=== PATIENT | female | born 1985 | race African-American/Black ===

== ENCOUNTER 2020-11-14 15:30 | Outpatient (REF) | payer MEDICAID, SELFPAY | END 2020-11-14 15:31 | disposition home or self-care (01) | LOC: HO.LNP 15:30 | PROVIDERS: PCP Registered Nurse; Referring Provider Registered Nurse; Visit Provider Surgery | DX: N90.7 Vulvar cyst (principal) | CPT/HCPCS: 11402; 11422; 88304; 99202 ==

== ENCOUNTER 2020-11-18 10:38 | Outpatient (REF) | payer MEDICAID, SELFPAY | END 2020-11-18 10:39 | disposition home or self-care (01) | LOC: HO.LAB 10:38 | PROVIDERS: Visit Provider Surgery | DX: Z13.89 Encounter for screening for other disorder (principal) ==

== ENCOUNTER 2020-11-19 23:03 | Emergency (ER) | payer MEDICAID, SELFPAY ==
[2020-11-19 23:48] VITALS: BP 111/61; PULSE 57; RESP 18; TEMP 35.9; O2SAT 99; BMI 29.7
[2020-11-20 02:00] VITALS: BP 107/52; PULSE 53; RESP 16; TEMP 36.7; O2SAT 100
--- NOTE | 2020-11-20 02:02 | ED.SKABFB ---
HPI - Skin/Abscess/Foreign Bdy General Chief complaint: Skin/Abscess/Foreign Body Stated complaint: Wound check Time Seen by Provider: 11/20/20 01:19 Source: patient Mode of arrival: ambulatory History of Present Illness HPI narrative: 35-year-old female presents with reported drainage from post incision and drainage and is postop day 6. Patient denies any fevers chills but states that she has noted reaccumulation and increase in size as previous ?cyst?. Related Data Home Medications Medication Instructions Recorded Confirmed buprenorphine 12 mg-naloxone 3 mg 1 film BUCCAL Q24H 11/14/20 11/14/20 sublingual film Allergies Allergy/AdvReac Type Severity Reaction Status Date / Time No Known Allergies Allergy Verified 11/14/20 15:38 Review of Systems Review of Systems: Pertinent positives and negatives as stated in HPI 10 point review of systems otherwise negative. PMFSH Past Medical History Source: nursing notes reviewed Medical History No active medical problems Vulvar cyst Family History Family History Paternal Grandmother No problems noted. Social History Social History Alcohol intake: never Patient Tobacco Use Status: Never used Tobacco Use of substances other than those prescribed or required for medical reasons: No Advance Directives: No Advance Directives Information Provided: No Patient : No Physical Exam Vital Signs: Vital Signs: Last Vital Signs Temp 98.1 F 11/20/20 02:00 Pulse 53 11/20/20 02:00 Resp 16 11/20/20 02:00 BP 107/52 L 11/20/20 02:00 Pulse Ox 100 11/20/20 02:00 Body Mass Index 29.7 VITAL SIGNS: Reviewed. GENERAL: Well developed, well nourished, in no acute distress. HEAD: Normocephalic/atraumatic EYES: PERRLA, EOMI OROPHARYNX: no oral lesions noted, posterior pharynx clear NECK: Supple, no adenopathy LUNGS: Normal breath sounds. No adventitious sounds or accessory muscle use. SpO2<99> CARDIOVASCULAR: Regular rate and rhythm without noted murmurs ABDOMEN: Soft, non-tender, non-distended with bowel sounds. : Suture line along the labial/thigh crease with serosanguineous drainage and palpation of firm lump without fluctuance Course Course Course Narrative: 35-year-old female with history and clinical presentation consistent with postprocedure infection versus seroma. Sutures were successfully removed without complication there is minimal evidence for abscess formation despite induration. All sutures were removed with minimal expression of fluid, suspect that there is no collection at present, encouraged patient to utilize warm moist compresses and follow up at the surgery clinic in the morning. MDM - Skin/Abscess/Foreign Bdy Lab Data Labs: Lab Results 11/20/20 11/20/20 Range/Units 02:07 02:07 Urine Color STRAW Urine Appearance CLEAR Urine pH 6.0 (5.0-8.0) Ur Specific Mcguffey <= 1.005 (1.005-1.025) Urine Protein NEG (NEG-TRACE) MG/DL Urine Glucose (UA) NEG (NEG) MG/DL Urine Ketones NEG (NEG) MG/DL Urine Blood NEG (NEG) Urine Nitrite NEG (NEG) Ur Leukocyte Esterase NEG (NEG) Urine RBC 0 (0) /HPF Urine WBC 0 (0-4) /HPF Ur Squamous Epith Cells 1+ /LPF Urine Bacteria NONE /LPF Urine Test NEGATIVE (NEGATIVE) Discharge Plan Discharge Clinical Impression: Cellulitis Patient Disposition: Home, Self-Care Instructions: Cellulitis (ED) Additional Instructions: 1. Please follow up with the surgical clinic in the morning for re-evaluation. 2. You have been started on antibiotics for additional infection control. 3. Recommend taking [id number] Tylenol/ibuprofen as needed for additional pain relief. Use warm moist compresses at the site, 3 to 4 times a day. Return to the ER for acute worsening of symptoms. Prescriptions: No Action buprenorphine-naloxone [Suboxone] 12-3 mg film 1 film buccal Q24H RF: 0 Referrals: [facility] [Primary Care Provider] - 2 days Daniel Rodriguez MD [Physician] - 2 days
[2020-11-20 02:15] LABS: Glucose Urine UA NEG (NEG); Leukocyte Esterase Urine NEG (NEG); Nitrite Urine NEG (NEG); Specific Gravity - Urine <= 1.005 (1.005-1.025); Urine Blood NEG (NEG); Urine Ketones NEG (NEG); Urine Protein NEG (NEG-TRACE)
[2020-11-20] MEDS: Lidocaine HCl 2 % MPF 5 ML VIAL 10 ML INFILTRATI (02:16)
[2020-11-20 02:17] LABS: Appearance Urine CLEAR; Color Urine STRAW; UACC CULT NO; UPreg QC Valid YES; Urine Pregnancy NEGATIVE (NEGATIVE)
[2020-11-20 02:24] LABS: RBC Urine 0 /HPF (0); Squamous Epithelial Cell Urine 1+ /LPF; WBC Urine 0 /HPF (0-4)
[2020-11-20] MEDS: Amoxicillin/Potassium Clav 875 MG TABLET PO (04:05)
== END 2020-11-20 04:39 | disposition home or self-care (01) ==
PROVIDERS: Emergency Provider Student in an Organized Health Care Education/Training Program
DX: T81.49XA Infection following a procedure, other surgical site, initial encounter (principal); L03.119 Cellulitis of unspecified part of limb
CPT/HCPCS: 81001; 81025; 99284

== ENCOUNTER → 2020-11-25 09:10 | Outpatient (BNVA) | payer MEDICAID, SELFPAY | PROVIDERS: PCP Registered Nurse; Referring Provider Registered Nurse; Visit Provider Surgery | DX: Z48.00 Encounter for change or removal of nonsurgical wound dressing (principal) | CPT/HCPCS: 99211 ==

== ENCOUNTER → 2020-12-09 13:43 | Outpatient (BNVA) | payer MEDICAID, SELFPAY | PROVIDERS: PCP Registered Nurse; Referring Provider Registered Nurse; Visit Provider Surgery | DX: Z48.816 Encounter for surgical aftercare following surgery on the genitourinary system (principal); Z87.42 Personal history of other diseases of the female genital tract | CPT/HCPCS: 99212 ==

== ENCOUNTER 2023-08-09 13:39 | Outpatient (REF) | payer MEDICAID, SELFPAY ==
[2023-08-10 05:05] LABS: Syphilis Screen Nonreactive (Nonreactive)
[2023-08-10 05:28] LABS: HIV AB/AG Nonreactive (Nonreactive); HIV Num 1 0.06 S/CO (0.00-0.99)
[2023-08-11 18:18] LABS: C. trachomatis RNA TMA NOT DETECTED (NOT DETECTED); Candida glabrata RNA NOT DETECTED (NOT DETECTED); Candida species RNA NOT DETECTED (NOT DETECTED); N. gonorrhoeae RNA TMA NOT DETECTED (NOT DETECTED); Trichomonas vaginalis RNA NOT DETECTED (NOT DETECTED)
[2023-08-13 06:33] LABS: HPV mRNA E6/E7 rflx Not Detected (Not Detected)
== END 2023-08-09 13:40 | disposition home or self-care (01) ==
LOC: HO.HHCL 13:39
PROVIDERS: Visit Provider Advanced Practice Midwife
DX: Z12.4 Encounter for screening for malignant neoplasm of cervix (principal); N89.8 Other specified noninflammatory disorders of vagina; Z11.3 Encounter for screening for infections with a predominantly sexual mode of transmission
CPT/HCPCS: 36415; 81513; 86780; 87389; 87481; 87491; 87591; 87624; 87661; 88142

== ENCOUNTER 2024-07-19 10:30 | Outpatient (REF) | payer MEDICAID, SELFPAY ==
--- OUTSIDE RECORDS SUMMARY | 2024-07-19 11:09 | XMS_ITS | Encounter Summary ---
Author Organization [employer] Address [address] [facility] [address] [place] [address] Care Team Providers Care Fireproof Door Assembler Name Role Phone Maggy Carrera Primary Care Provider [phone] Reason for Visit * Reason Onset Date Comments Referral 07/28/2022 Encounter Details Date Type Department Care Team ([facility] st Contact Info) Description 07/28/2022 Telephone [facility] [address] [place] [address] Maggy Carrera FNP [address] [place] [address] Referral Social History Tobacco Use Types Packs/Day Years Used Date Smoking Tobacco: Never Smokeless Tobacco: Never Depression Answer Date Recorded Patient Health Questionnaire-9 Score 17 10/22/2022 Housing Stability Answer Date Recorded What is your housing situation today? I have dejah roy 04/16/[address] you li ve. Do you have problems with any of the following? None of the above 04/16/2023 Food Insecurity Answer Date Recorded Within the past 12 months, y ou worried that your food would run out before you got money to buy more: Never True 04/16/2023 Within the past 12 months,th e food you bought just didn't last and you didn't have enough money to get more: Never True Transportation Answer Date Recorded In the past 12 months, has l ack of transportation kept you from medical appts, meetings, work or from getting things needed for daily living? No 04/16/2023 Utilities Answer Date Recorded In the past 12 months, has t he [employer], gas, oil or water [employer] threatened to shut off services in your home? No 04/16/2023 Depression Answer Date Recorded Patient Health Questionnaire-2 Score 3 10/22/2022 Comments Unknown Sex and Gender Information Value Date Recorded Sex Assigned at Female 03/30/2022 10:31 AM EDT Legal Sex Female 10:31 AM EDT Gender Identity Female 03/30/2022 10:31 AM EDT Sexual Orientation Choose not to disclose 2021 10:31 AM EDT COVID-19 Exposure Response Date Recorded In the last 10 days, have yo u been in contact with someone who was confirmed or suspected to have Coronavirus/COVID-19? No / Unsure 11/20/2022 9:16 AM EDT documented as of this encounter Miscellaneous Notes * Telephone Encounter - Jacqueline Oquendo RN - 07/28/2022 1:44 PM EST Pt was referred to podiatry and advised to go to ED if I&D may be warranted. Pt agrees with plan. * Telephone Encounter - Monica Silva - 07/28/2022 1:17 PM EST Tc from pt requesting a referral for a podiatry , stated called several places and wait time is longer than a month and can no longer wait, pt was seen at [facility] for a abscess on right big toes. Please contact at [phone] documented in this encounter Plan of Treatment Upcoming Encounters Date Type Department Care Team (Late st Contact Info) Description 07/28/2024 9:15 AM EST Office Visit [facility] [address] [place] [address] Yahir Butler MD [address] [place] [address] 08/10/2024 2:00 PM EDT [facility] [address] [place] [address] Oksana Quiñones CNM [address] [place] [address] 08/16/2024 10:00 AM EDT Office Visit [facility] [address] [place] [address] Maggy Carrera FNP [address] [place] [phone] documented as of this encounter Visit Diagnoses Not on filedocumented in this encounter Care Teams Fireproof Door Assembler Relationship Specialty Start Date End Date Maggy Carrera FNP [address] [place] [address] PCP - General Family Medicine 03/24/21 documented as of this encounter
--- OUTSIDE RECORDS SUMMARY | 2024-07-19 11:09 | XMS_ITS | Encounter Summary ---
Author Organization [employer] Address [address] [facility] [address] 7[address] [place] [address] Care Team Providers Care Icu Rn Name Role Phone Maggy Carrera Primary Care Provider [phone] Encounter Details Date Type Department Care Team (Late st Contact Info) Description 07/18/2024 Telephone [facility] [address] [place] [address] Maggy Carrera FNP [address] [place] [address] Social History Tobacco Use Types Packs/Day Years Used Date Smoking Tobacco: Never Smokeless Tobacco: Never Alcohol Use Standard Drinks/Week Comments Never 0 (1 standard drink = 0.6 oz pur e alcohol) Depression Answer Date Recorded Patient Health Questionnaire-9 Score 17 10/22/2022 Housing Stability Answer Date Recorded What is your housing situation today? I have dejah roy 07/19/[address] you li ve. Do you have problems with any of the following? None of the above 07/19/2024 Food Insecurity Answer Date Recorded Within the past 12 months, y ou worried that your food would run out before you got money to buy more: Never True 07/19/2024 Within the past 12 months,th e food you bought just didn't last and you didn't have enough money to get more: Never True Transportation Answer Date Recorded In the past 12 months, has l ack of transportation kept you from medical appts, meetings, work or from getting things needed for daily living? No 07/19/2024 Utilities Answer Date Recorded In the past 12 months, has t he electric, gas, oil or water company threatened to shut off services in your home? No 07/19/2024 Depression Answer Date Recorded Patient Health Questionnaire-2 Score 3 10/22/2022 Internet Access Answer Date Recorded Internet Access Q1 Yes 07/19/2024 Internet Access Q2 Not on file 07/19/2024 Comments No Sex and Gender Information Value Date Recorded Sex Assigned at Female 03/30/2022 10:31 AM EDT Legal Sex Female 10:31 AM EDT Gender Identity Female 03/30/2022 10:31 AM EDT Sexual Orientation Choose not to disclose 2021 10:31 AM EDT documented as of this encounter Miscellaneous Notes * Telephone Encounter - Gwen May - 07/18/2024 8:40 AM EST Called Patient left vm, advised insurance is inactive Patient needs to update insurance before appointment. documented in this encounter Plan of Treatment Upcoming Encounters Date Type Department Care Team (Late st Contact Info) Description 07/28/2024 9:15 AM EST Office Visit [facility] [address] [place] [address] Yahir Butler MD [address] [place] [address] 08/10/2024 2:00 PM EDT Office Visit [facility] [address] [place] [address] Oksana Quiñones CNM [address] [place] [address] 08/16/2024 10:00 AM EDT Office Visit [facility] [address] [place] [address] Maggy Carrera FNP [address] [place] [address] documented as of this encounter Visit Diagnoses Not on filedocumented in this encounter Additional Health Concerns Assessment Noted Time PHQ-9 Depression Total Score: 17 023 3:28 PM EDT documented as of this encounter Care Teams Icu Rn Relationship Specialty Start Date End Date Maggy Carrera FNP [address] [place] [address] PCP - General Family Medicine 03/24/21 documented as of this encounter
--- OUTSIDE RECORDS SUMMARY | 2024-07-19 11:09 | XMS_ITS | Encounter Summary ---
Author Organization [employer] Address [address] [facility] 7t [place] [address] Care Team Providers Care Chocolate Molder Name Role Phone Maggy Carrera Primary Care Provider [phone] Reason for Visit * Reason Comments Pre-visit Planning Pre-visit planning - LVM Encounter Details Date Type Department Care Team ([facility] st Contact Info) Description 07/03/2024 Patient Outreach [facility] [address] [place] [address] Maggy Carrera FNP [address] [place] [address] Pre-visit Planning (Pre-visit planning - LVM ) Social History Tobacco Use Types Packs/Day Years [...] Patient Health Questionnaire-2 Score 3 10/22/2022 Comments No Sex and Gender Information Value Date Recorded Sex Assigned at Female 03/30/2022 10:31 AM EDT Legal Sex Female 10:31 AM EDT Gender Identity Female 03/30/2022 10:31 AM EDT Sexual Orientation Choose not to disclose 2021 10:31 AM EDT documented as of this encounter Progress Notes * Alyssa Marcelino - 07/03/2024 1:59 PM EST LEONID Pearson placed outbound call to patient to complete pre-visit planning. No answer at this time. Patient name and were not confirmed. CC left voicemail requesting return call. Direct contact information provided. documented in this encounter Plan of Treatment Upcoming Encounters Date Type Department Care Team (Late st Contact Info) Description 07/28/2024 9:15 AM EST Office Visit [facility] [address] [place] [address] Yahir Butler MD [address] [place] [address] 08/10/2024 2:00 PM EDT Office Visit [facility] [address] [place] [address] Oksana Quiñones CNM [address] [place] [address] 08/16/2024 10:00 AM EDT Office Visit [facility] [address] [place] [address] Maggy Carrera FNP [address] [place] [address] documented as of this encounter Visit Diagnoses Not on filedocumented in this encounter Additional Health Concerns Assessment Noted Time PHQ-9 Depression Total Score: 17 023 3:28 PM EDT documented as of this encounter Care Teams Chocolate Molder Relationship Specialty Start Date End Date Maggy Carrera FNP [address] [place] [address] PCP - General Family Medicine 03/24/21 documented as of this encounter
--- OUTSIDE RECORDS SUMMARY | 2024-07-19 11:09 | XMS_ITS | Encounter Summary ---
Author Organization [employer] Address [address] [facility] [address] [place] [address] Care Team Providers Care Loan Auditor Name Role Phone Maggy Carrera Primary Care Provider [phone] Reason for Referral * Imaging (Routine) - Pending Review Specialty Diagnoses / Procedures Referred By Jonny sandoval Referred To Contact Radiology Diagnoses Encounter for screening mammogram for malignant neoplasm of breast Procedures BI Mammogram Screening Tomosynthesis Bilateral Maggy Carrera FNP [address] [place] [address] Phone: tel: fax: Referral ID Status Reason Start Date Expiration Date V isits Requested Visits Authorized [id number] Pending Review 07/19/2024 07/19/2025 1 1 * Consultation (Routine) - Pending Review Specialty Diagnoses / Procedures Referred By Jonny sandoval Referred To Contact Podiatry Diagnoses Ingrown nail of great toe Maggy Carrera FNP [address] [place] [address] Phone: tel: fax: Min Simon DPM [address] [place] [address] Phone: tel: fax: Referral ID Status Reason Start Date Expiration Date Visits Requested Visits Authorized [id number] Pending Review Specialty Services Required 07/19/2024 07/19/2025 1 1 * Consultation (Routine) - Authorized Specialty Diagnoses / Procedures Referred By Jonny sandoval Referred To Contact Optometry Diagnoses Encounter for routine history and physical examination of adult Maggy Carrera FNP [address] [place] [address] Phone: tel: fax: [facility] [address] [place] [address] Phone: tel: fax: Referral ID Status Reason Start Date Expiration Date Visits Requested Visits Authorized [id number] Authorized Consult and Treat 07/19/2024 07/19/2025 1 1 Encounter Details Date Type Department Care Team ([facility] st Contact Info) Description 07/19/2024 9:15 AM EST Office Visit [facility] [address] [place] [address] Maggy Carrera FNP [address] [place] [address] Encounter for routine history and physical examination of adult (Primary Dx); Healthcare maintenance; Abnormal finding on imaging of liver; Opioid use disorder; Ingrown nail of great toe; Encounter for screening mammogram for malignant neoplasm of breast Social History Tobacco Use Types Packs/Day Years Used Date Smoking Tobacco: Never Smokeless Tobacco: Never Alcohol Use Standard Drinks/Week Comments Never 0 (1 standard drink = 0.6 oz pur e alcohol) Depression Answer Date Recorded Patient Health Questionnaire-9 Score 17 10/22/2022 Housing Stability Answer Date Recorded What is your housing situation today? I have dejah kirill 07/19/[address] you li [...] AM EDT documented as of this encounter Last Filed Vital Signs Vital Sign Reading Time Taken Comments Blood Pressure 128/66 07/19/2024 9:36 AM EST Pulse 60 07/19/2024 9:36 AM EST Temperature 36 ??C (96.8 ??F) 07/19/2024 9:36 AM EST Respiratory Rate 18 07/19/2024 9:36 AM EST Oxygen Saturation 98% 07/19/2024 9:36 AM EST Inhaled Oxygen Concentration - - Weight 86.6 kg (191 lb) 07/19/2024 9:36 AM EST Height 157.5 cm (5' 2 ) 07/19/2024 9:36 AM EST Body Mass Index 34.93 07/19/2024 9:36 AM EST documented in this encounter Miscellaneous Notes * Assessment & Plan Note - PATRICIA Leon - 07/19/2024 7:57 AM ESTAssociated Problem(s): Healthcare maintenance Breast CA: Routine mammograms starting at 40 y/o Pap: July 2023 NILM/HPV neg. Repeat in 3 years d/t no previous results. 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 documented in this encounter Plan of Treatment Upcoming Encounters Date Type Department Care Team (Late st Contact Info) Description 07/28/2024 9:15 AM EST Office Visit [facility] [address] [place] [address] Yahir Butler MD [address] [place] [address] 08/10/2024 2:00 PM EDT Office Visit [facility] [address] [place] [address] Oksana Quiñones, CNM [address] [place] [address] 08/16/2024 10:00 AM EDT Office Visit [facility] [address] [place] [address] Maggy Carrera, ETCHER ENAMELING [address] [place], [place] [phone] Scheduled Orders Name Type Priority Associated Diagnoses Orde r Schedule Chlamydia/N. Gonorrhoeae RNA, TMA, Urogenitial Microbiology Routine Encounter for routine history and physical examination of adult Expected: 07/19/2024, Expires: 07/19/2025 Hepatitis C Viral RNA, Quantitative, Real-Time PCR Lab Routine Encounter for routine history and physical examination of adult Expected: 07/19/2024 (Approximate), Expires: 07/19/2025 RPR (Monitor) with Reflex to??Titer Lab Routine Encounter for routine history and physical examination of adult Expected: 07/19/2024 (Approximate), Expires: 07/19/2025 HIV-1/2 Antigen and Antibodies, Fourth Generation, with Reflexes Lab Routine Encounter for routine history and physical examination of adult Expected: 07/19/2024 (Approximate), Expires: 07/19/2025 Albumin, Random Urine W/Creatinine Lab Routine Encounter for routine history and physical examination of adult Expected: 07/19/2024 (Approximate), Expires: 07/19/2025 Lipid Panel, Standard Lab Routine Encounter for routine history and physical examination of adult Expected: 07/19/2024 (Approximate), Expires: 07/19/2025 Hemoglobin A1c Lab Routine Encounter for routine history and physical examination of adult Expected: 07/19/2024 (Approximate), Expires: 07/19/2025 TSH with Reflex to Free T4 Lab Routine Encounter for routine history and physical examination of adult Expected: 07/19/2024 (Approximate), Expires: 07/19/2025 Comprehensive Metabolic Panel Lab Routine Encounter for routine history and physical examination of adult Expected: 07/19/2024 (Approximate), Expires: 07/19/2025 CBC auto differential Lab Routine Encounter for routine history and physical examination of adult Expected: 07/19/2024, Expires: 07/19/2025 Iron And Total Iron Binding Capacity Lab Routine Encounter for routine history and physical examination of adult Expected: 07/19/2024, Expires: 07/19/2025 Ferritin Lab Routine Encounter for routine history and physical examination of adult Expected: 07/19/2024, Expires: 07/19/2025 Vitamin D, 25-Hydroxy, Total, Immunoassay Lab Routine Encounter for routine history and physical examination of adult Expected: 07/19/2024 (Approximate), Expires: 07/19/2025 BI Mammogram Screening Tomosynthesis Bilateral Imaging Routine Encounter for screening mammogram for malignant neoplasm of breast Expected: 07/19/2024, Expires: 09/16/2025 Scheduled Referrals Name Type Priority Associated Diagnoses Orde r Schedule Referral to [facility] Outpatient Referral Routine Encounter for routine history and physical examination of adult Expected: 07/19/2024 (Approximate), Expires: 07/19/2025 Referral to Podiatry Outpatient Referral Routine Ingrown nail of great toe Expected: 07/19/2024 (Approximate), Expires: 07/19/2025 documented as of this encounter Visit Diagnoses Diagnosis Encounter for routine history and physical examination of adult- Primary Healthcare maintenance Abnormal finding on imaging of liver Opioid use disorder Ingrown nail of great toe Encounter for screening mammogram for malignant neoplasm of breast documented in this encounter Additional Health Concerns Assessment Noted Time PHQ-9 Depression Total Score: 17 10/22/ 023 3:28 PM EDT documented as of this encounter Care Teams Loan Auditor Relationship Specialty Start Date End Date Maggy Carrera FNP [address] [place] [address] PCP - General Family Medicine 03/24/21 documented as of this encounter
--- OUTSIDE RECORDS SUMMARY | 2024-07-19 11:09 | XMS_ITS | Encounter Summary ---
Author Organization [employer] Address [address] [facility] [address] [place] [address] Care Team Providers Care Senior Application Security Consultant Name Role Phone Maggy Carrera PATRICIA Primary Care Provider [phone] Reason for Visit * Reason Comments Med Refill Encounter Details Date Type Department Care Team ([facility] st Contact Info) Description 03/31/2024 Refill [facility] [address] [place], [place] [phone] Yahir Butler MD [address] [place] [address] Opioid use disorder Social History Tobacco Use Types Packs/Day Years [...] AM EDT documented as of this encounter Plan of Treatment Upcoming Encounters Date Type Department Care Team (Late st Contact Info) Description 07/28/2024 9:15 AM EST Office Visit [facility] [address] [place] [address] Yahir Butler MD [address] [place] [address] 08/10/2024 2:00 PM EDT Office Visit [facility] [address] [place] [address] Oksnaa Quiñones CNM [address] [place] [address] 08/16/2024 10:00 AM EDT Office Visit [facility] [address] [place] [address] Maggy Carrera FNP [address] [place] [address] documented as of this encounter Visit Diagnoses Diagnosis Opioid use disorder documented in this encounter Additional Health Concerns Assessment Noted Time PHQ-9 Depression Total Score: 17 023 3:28 PM EDT documented as of this encounter Care Teams Senior Application Security Consultant Relationship Specialty Start Date End Date Maggy Carrera FNP [address] [place] [address] PCP - General Family Medicine 03/24/21 documented as of this encounter
--- OUTSIDE RECORDS SUMMARY | 2024-07-19 11:09 | XMS_ITS | Encounter Summary ---
Author Organization [employer] Address [address] [place] [address] Care Team Providers Care Peoplesoft Administrator Name Role Phone Maggy Carrera PATRICIA Primary Care Provider [phone] Reason for Visit * Reason Comments Med Refill Encounter Details Date Type Department Care Team ([facility] st Contact Info) Description 02/25/2024 Refill [facility] MEDICINE [address] [place], [place] [phone] Yahir Butler MD [address] [place] [address] Vaping nicotine dependence, non-tobacco product Social History Tobacco Use Types Packs/Day Years [...] Description 07/28/2024 9:15 AM EST Office Visit [facility] MEDICINE [address] [place] [address] Yahir Butler MD [address] [place] [address] 08/10/2024 2:00 PM EDT Office Visit [facility] CHC MED & PEDS [address] [place] [address] Oksana Quiñones CNM [address] [place] [address] 08/16/2024 10:00 AM EDT Office Visit [facility] MEDICINE [address] [place] [phone] Maggy Carrera FNP [address] [place] [address] documented as of this encounter Visit Diagnoses Diagnosis Vaping nicotine dependence, non-tobacco product documented in this encounter Additional Health Concerns Assessment Noted Time PHQ-9 Depression Total Score: 17 023 3:28 PM EDT documented as of this encounter Care Teams Peoplesoft Administrator Relationship Specialty Start Date End Date Maggy Carrera FNP [address] [place] [phone] PCP - General Family Medicine 03/24/21 documented as of this encounter
--- OUTSIDE RECORDS SUMMARY | 2024-07-19 11:09 | XMS_ITS | Encounter Summary ---
Author Organization [employer] Address [address] [place] [address] Care Team Providers Care Resort Keeper Name Role Phone Maggy Carrera PATRICIA Primary Care Provider [phone] Reason for Visit * Reason Comments Med Refill Encounter Details Date Type Department Care Team ([facility] st Contact Info) Description 05/26/2024 Refill [facility] MEDICINE [address] [place], [place] [phone] Yahir Butler MD [address] [place] [address] Opioid use disorder Social History Tobacco Use [...] Description 07/28/2024 9:15 AM EST Office Visit [facility] MEDICINE [address] [place] [address] Yahir Butler MD [address] [place] [address] 08/10/2024 2:00 PM EDT Office Visit [facility] CHC MED & PEDS [address] [place] [address] Oksana Quiñones CNM [address] [place] [address] 08/16/2024 10:00 AM EDT Office Visit [facility] MEDICINE [address] [place] [address] Maggy Carrera FNP [address] [place] [address] documented as of this encounter Visit Diagnoses Diagnosis Opioid use disorder documented in this encounter Additional Health Concerns Assessment Noted Time PHQ-9 Depression Total Score: 17 023 3:28 PM EDT documented as of this encounter Care Teams Resort Keeper Relationship Specialty Start Date End Date Maggy Carrera FNP [address] [place] [address] PCP - General Family Medicine 03/24/21 documented as of this encounter
--- OUTSIDE RECORDS SUMMARY | 2024-07-19 11:09 | XMS_ITS | Encounter Summary ---
Author Organization [employer] Address [address] [place] [address] Care Team Providers Care Epic Ambulatory Analysts Name Role Phone Maggy Carrera Primary Care Provider [phone] Reason for Visit * Reason Onset Date Comments Referral 05/29/2024 Encounter Details Date Type Department Care Team ([facility] st Contact Info) Description 05/29/2024 Telephone [facility] MEDICINE [address] [place] [address] Maggy Carrera FNP [address] [place] [address] Referral Social History Tobacco Use Types Packs/Day [...] encounter Miscellaneous Notes * Telephone Encounter - Betty Ruiz RN - 06/01/2024 11:34 AM EST TC to patient. No answer. Left message to return call. * Telephone Encounter - PATRICIA Leon - 05/29/2024 8:52 PM EST Please let her know that she will need to be seen for an appt in order to get updated referral as it has been more than 1 year since last one was sent. Last PCP visit was 04/16/23, so will need updated note. She is welcome to come to Walk in Center or Same Day Care/sick appt. Thank you! * Telephone Encounter - Sylvester Melendez - 05/29/2024 10:18 AM EST TC from pt requesting new referral: Address: [address] [place] [address] [address], [place] [address] Facility Name: [facility] Type of Specialist: Appraiser Real Estate DX: Ingrown Toenail Provider: Min Simon Pt stated due to insurance change she would need new emergency referral. Emergency because of the ingrown toenail. Please contact pt at at [phone], she would like to further discuss. documented in this encounter Plan of Treatment Upcoming Encounters Date Type Department Care Team (Late st Contact Info) Description 07/28/2024 9:15 AM EST Office Visit [facility] MEDICINE [address] [place] [address] Yahir Butler MD [address] [place] [address] 08/10/2024 2:00 PM EDT Office Visit [facility] CHC MED & PEDS [address] [place] [address] Oksana Quiñones CNM [address] [place] [address] 08/16/2024 10:00 AM EDT Office Visit [facility] MEDICINE [address] [place] [address] Maggy Carrera FNP [address] [place], [place] [phone] documented as of this encounter Visit Diagnoses Not on filedocumented in this encounter Additional Health Concerns Assessment Noted Time PHQ-9 Depression Total Score: 17 023 3:28 PM EDT documented as of this encounter Care Teams Epic Ambulatory Analysts Relationship Specialty Start Date End Date Maggy Carrera FNP [address] [place] [address] PCP - General Family Medicine 03/24/21 documented as of this encounter
--- OUTSIDE RECORDS SUMMARY | 2024-07-19 11:09 | XMS_ITS | Encounter Summary ---
Author Organization [facility] [employer] Address [address] [place] [address] Care Team Providers Care Ms Sql Server Developer Name Role Phone Maggy Carrera PATRICIA Primary Care Provider [phone] Reason for Visit * Reason Onset Date Comments Chart Prep 07/18/2024 Encounter Details Date Type Department Care Team ([facility] st Contact Info) Description 07/18/2024 Telephone [facility] CHC MED & PEDS [address] [place] [address] Mary Avelar MA Chart Prep Social History Tobacco Use Types Packs/Day Years [...] the past 12 months, has t he [employer], oil or water [employer] threatened to shut off services in your [...] encounter Miscellaneous Notes * Telephone Encounter - Mary Oneil MA - 07/18/2024 1:07 PM EST Chart Prep Labs: done Images: not done Vaccines due: yes Referrals: complete Screenings: mammogram Overdue care gaps: Sbirt, SDOH, PHQ-9, PISQ documented in this encounter Plan of Treatment Upcoming Encounters Date Type Department Care Team (Late st Contact Info) Description 07/28/2024 9:15 AM EST Office Visit [facility] MEDICINE [address] [place] [address] Yahir Butler MD [address] [place] [address] 08/10/2024 2:00 PM EDT Office Visit [facility] CHC MED & PEDS [address] [place] [address] Oksana Quiñones CNM [address] [place] [address] 08/16/2024 10:00 AM EDT Office Visit [facility] MEDICINE [address] [place] [address] Maggy Carrera FNP [address] [place] [address] documented as of this encounter Visit Diagnoses Not on filedocumented in this encounter Additional Health Concerns Assessment Noted Time PHQ-9 Depression Total Score: 17 023 3:28 PM EDT documented as of this encounter Care Teams Ms Sql Server Developer Relationship Specialty Start Date End Date Maggy Carrera FNP [address] [place] [address] PCP - General Family Medicine 03/24/21 documented as of this encounter
--- OUTSIDE RECORDS SUMMARY | 2024-07-19 11:09 | XMS_ITS | Clinical Summary ---
Author Organization [employer] Address [address] [place] [address] Care Team Providers Care Setter Machine Name Role Phone Maggy Carrera Primary Care Provider [phone] Allergies No known active allergies Medications * This document contains information received from the source organization and may not represent a complete record from that organization. ibuprofen 800 MG tablet TAKE 1 TABLET BY MOUTH THREE TIMES DAILY WITH FOOD 04/08/20 22 Active ulipristal (Mague) 30 mg tablet Take one tablet by mouth up to five days after sex. Do not use more than once per menstrual cycle. If repeat dose is needed in same cycle, please contact prescriber. 1 tablet 11 08/09/19 24 Active buprenorphine -naloxone (Suboxone) 12-3 MG per sublingual filmIndicatio ns:Opioid use disorder Place 1 Film under the tongue Once per day. 28 Film 1 06/02/19 25 2024 Active buprenorphine -naloxone (Suboxone) 4-1 MG per sublingual filmIndicatio ns:Opioid use disorder Place 2 Film under the tongue Once per day. 56 Film 1 06/02/19 25 2024 Active metFORMIN (Glucophage) 1000 MG tablet Take 1 tablet (1,000 mg) by mouth with breakfast and with evening meal. 180 tablet 1 07/19/19 25 2025 Active Mague 30 MG tablet TAKE 1 TABLET BY MOUTH UP TO 5 DAYS AFTER UNPROTECTED INTERCOURSE 1 tablet 3 07/19/19 25 Active docusate sodium (Colace) 100 MG capsule TAKE 1 OR 2 CAPSULES BY MOUTH EVERY NIGHT AT BEDTIME NEEDED CONSTIPATION. TAKE WITH LARGE GLASS OF LIQUIDS 90 capsule 2 07/19/19 25 Active Ketotifen Fumarate 0.035 % solution Administer 1 drop into affected eye(s) if needed in the morning and at bedtime (eye redness or itching). 10 mL 2 07/19/19 25 Active valACYclovir (Valtrex) 500 MG tablet Take 1 tablet (500 mg) by mouth Once per day. May take one tablet twice a day for three days if outbreak, otherwise one tablet daily 90 tablet 2 07/19/19 25 Active fluocinolone ([place]-Smooth e/FS Body) 0.01 % external oil Apply before bed on a damp scalp, wrap with head covering. Wash out in the morning. Use 3x per week for treatment, and once every 1-2 weeks for prevention. 120 mL 1 07/19/19 25 Active FeroSul 325 (65 Fe) MG tablet TAKE 1 TABLET BY MOUTH EVERY DAY 05/04/20 22 2024 Discontinued(T herapy completed) bacitracin 500 UNIT/GM ointment apply to area of infection BID PRN 01/03/20 22 2024 Discontinued(T herapy completed) ketotifen (Zaditor) 0.025 % ophthalmic solution 01/03/20 22 2024 Discontinued(R eorder (will not trigger notification to Pharmacy)) norethindrone (Micronor) 0.35 MG tablet Take 1 tablet by mouth in the morning. 03/20/20 22 2024 Discontinued(T herapy completed) triamcinolone (Kenalog) 0.1 % cream Mix 80gm tube of Triamcinolone with 16oz jar of CeraVe cream. Apply after shower or bath to skin from the neck down (Not on face) 01/03/20 22 2024 Discontinued(T herapy completed) Mague 30 MG tablet TAKE 1 TABLET BY MOUTH UP TO 5 DAYS AFTER UNPROTECTED INTERCOURSE 10/02/19 22 2024 Discontinued(R eorder (will not trigger notification to Pharmacy)) hydrOXYzine pamoate (Vistaril) 25 MG capsuleIndica tions:Anxiety Take 1-2 tablets by oral route every 8 hours as needed for anxiety 60 capsule 3 10/24/19 23 2024 Discontinued(T herapy completed) docusate sodium (Colace) 100 MG capsule TAKE 1 OR 2 CAPSULES BY MOUTH EVERY NIGHT AT BEDTIME NEEDED CONSTIPATION. TAKE WITH LARGE GLASS OF LIQUIDS 90 capsule 2 03/26/20 23 2024 Discontinued(R eorder (will not trigger notification to Pharmacy)) buPROPion SR (Wellbutrin SR) 150 MG 12 hr tabletIndicat ions:Vaping nicotine dependence, non-tobacco product 1 tablet PO once daily for 3 days, then 1 tab PO BID for 12 weeks. Start around 7 days before quit date. Do not crush, chew, or split. 84 tablet 1 11/03/19 24 2024 Discontinued(T herapy completed) valACYclovir (Valtrex) 500 MG tablet Take 1 tablet (500 mg) by mouth Once per day. May take one tablet twice a day for three days if outbreak, otherwise one tablet daily 36 tablet 2 01/06/20 24 2024 Discontinued(R eorder (will not trigger notification to Pharmacy)) varenicline (Chantix) 1 MG tabletIndicat ions:Tobacco use disorder Take 1 tablet (1 mg) by mouth 2 times daily. Take with full glass of water. 84 tablet 1 04/11/20 24 2024 Discontinued(T herapy completed) SSD 1 % cream APPLY TOPICALLY TO NAILBED DAILY 09/23/19 24 2024 Discontinued(T herapy completed) Active Problems Problem Noted Date Diagnosed Date Healthcare maintenance 07/19/2024 Assessment & Plan (07/19/2024 7:57 AM EST): Breast CA: Routine mammograms starting at 40 y/o Pap: July 2023 NILM/HPV neg. Repeat in 3 years d/t no previous results. 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 Incidental finding during ED visit in Feb 2023 - 1.6cm enhancing hepatic segment ?? Rec non-emergent MRI liver w/ and w/o contrast for follow up ?? Order placed 04/17/23 Nephrolithiasis 04/16/2023 Overview (04/17/2023): ?? 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 Eczema 06/07/2022 Opioid use disorder 06/07/2022 Iron deficiency anemia 01/04/2022 Resolved Problems Problem Noted Date Diagnosed Date Resolved Date Drug-induced constipation 06/07/2022 Dry eyes 06/07/2022 04/17/2023 Neck pain 06/07/2022 04/17/2023 Opioid dependence 10/30/2016 06/07/2022 Encounters Date Type Department Care Team Description 07/19/2024 9:15 AM EST Office Visit [facility] MEDICINE [address] [place] [address] Maggy Carrera FNP Encounter for routine history and physical examination of adult (Primary Dx); Healthcare maintenance; Abnormal finding on imaging of liver; Opioid use disorder; Ingrown nail of great toe; Encounter for screening mammogram for malignant neoplasm of breast 07/19/2024 Travel 07/18/2024 Telephone [facility] [address] [place] [address] Mary Avelar MA Chart Prep 07/18/2024 Telephone [facility] [address] [place] [address] Maggy Carrera FNP 07/03/2024 Patient Outreach [facility] [address] [place] [address] Maggy Carrera FNP Pre-visit Planning (Pre-visit planning - LVM ) 06/13/2024 Telephone [facility] [address] [place] [address] Maggy Carrera FNP Referral 06/09/2024 Travel 06/02/2024 Refill [facility] [address] [place] [address] Isidra Pisano RN Opioid use disorder 05/29/2024 Telephone [facility] [address] [place] [address] Maggy Carrera FNP Referral 05/26/2024 Refill [facility] [address] [place] [address] Yahir Butler MD Opioid use disorder 05/25/2024 Refill [facility] [address] [place] [address] Isidra Pisano RN Opioid use disorder from Last 3 Months Immunizations Name Administration Dates Next Due DTaP 03/04/2015 Hep A, Adult 12/17/2023,11/07/2021 Influenza injectable quadriv alent preservative free 04/16/2023,02/27/2022,02/25/2020,03/04 Influenza, Injectable, MDCK, preservative free 03/04/2015 Pfizer Covid-19 Vaccine 12+ 08/01/2020, Pfizer Covid-19 Vaccine 12+ loreta-sucrose (Cross Cap) 04/28/2021 Pneumococcal Conjugate PCV 20 04/16/2023 Pneumococcal Polysaccharide PPSV23 03/05/2015 Td (adult), 5 Lf tetanus tox oid, preservative free, adsorbed 04/22/2016 Tdap 01/02/2022 Social History Tobacco Use Types Packs/Day Years Used Date Smoking Tobacco: Never Smokeless Tobacco: Never Tobacco Cessation:Counseling Given: Not Answered Alcohol Use Standard Drinks/Week Comments Never 0 [...] not to disclose 2021 10:31 AM EDT Last Filed Vital Signs Vital Sign Reading [...] Mass Index 34.93 07/19/2024 9:36 AM EST Plan of Treatment Upcoming Encounters Date Type Department Care Team (Late st Contact Info) Description 07/28/2024 9:15 AM EST Office Visit [facility] MEDICINE [address] [place] [address] Yahir Butler MD [address] [place] [address] 08/10/2024 2:00 PM EDT Office Visit [facility]EDS [address] [place] [address] Pj Esteban, CNM [address] [place] [address] 08/16/2024 10:00 AM EDT Office Visit [facility] MED[facility]INE [address] [place], [place] [phone] Maggy Carrera, AUTOMATION MACHINE OPERATOR [address] [place], [place] [phone] Health Maintenance Due Date Last Done Comments Depression Monitoring (PHQ-9) 04/24/2023 10/22/2022, 10/22/2022 Depression Screening 10/23/2023 10/22/2022, 10/23/19 23 Mammogram 2024 COVID-19 Vaccine ( season) 2024 04/28/2021, 08/01/2020, 07/11/2020 Influenza Vaccine (#1) 2024 , 02/27/2022, 02/25/2020, Additional history exists Family Planning (PISQ) 08/08/2024 08/09/2023 Alcohol/Substance Use Screening 07/19/2025 07/19/2024 SDOH Screening 07/19/2025 07/19/2024 Tobacco Screening 07/19/2025 07/19/2024 Cervical Cancer Screening 08/08/2026 HPV/Cotest 08/08/2026 08/09/2023 Pap Smear 08/08/2026 08/09/2023 DTaP/Tdap/Td Vaccines (4 - Td or Tdap) 01/03/2032 01/02/2022, 04/22/2016, 03/04/2015 Zoster Vaccines (1 of 2) 01/25/2034 RSV Patients and Patients Aged 60 years or older (1 - 1-dose 75+ series) 01/25/2059 Hepatitis C Screening Completed 09/25/2022 , 10/02/2021, 05/19/2021 Pneumococcal Vaccine: Pediatrics (0 to 5 Years) and At-Risk Patients (6 to 49) Years) Aged Out 04/16/2023, 03/05/2015 No longer eligibl e based on patient's age to complete this topic HIV Screening Completed 08/09/2023, 08/30, 10/02/2021, Additional history exists Hepatitis A Vaccines Completed 12/17/2023, 11/08/19 22 HIB Vaccines Aged Out No longer eligi ble based on patient's age to complete this topic HPV Vaccines Aged Out No longer eligi ble based on patient's age to complete this topic Hepatitis B Vaccines Discontinued IPV Vaccines Aged Out No longer eligi ble based on patient's age to complete this topic Meningococcal Vaccine Aged Out No lg cheyanne eligible based on patient's age to complete this topic RSV under 20 months Aged Out No longe r eligible based on patient's age to complete this topic Rotavirus Vaccines Aged Out No longer eligible based on patient's age to complete this topic Procedures Procedure Name Priority Date/Time Associated Diagnosis Comments HIV 1/2 ANTIGEN/ANTIBODY, FOURTH GENERATION W/RFL Routine 08/09/2023 1:42 PM EDT Screening examination for venereal disease HPV MRNA E6/E7 REFLEX TO HPV 16, 18/45 Routine 08/09/2023 1:26 PM EDT PAP SMEAR Routine 08/09/2023 1:26 PM EDT Cervical cancer screening HEPATITIS C AB W/REFL TO HCV RNA, QN, PCR Routine 09/25/2022 11:51 AM EDT Opioid use disorder from Last 3 Months or Most Recently Relevant to Health Maintenance Results * HIV-1/2 Antigen and Antibodies, Fourth Generation, with Reflexes (08/09/2023 1:42 PM EDT) HIV AB/AG Nonreactive Nonreactive [facility] Comment:HIV-1 p24 Ag and/or HIV-1/HIV-2 Ab not detected.A test result that is nonreactive does not exclude thepossibility of exposure to or infection with HIV-1 and/orHIV-2. Nonreactive results in this assay for individualswith prior exposure to HIV-1 and/or HIV-2 may be due toantigen and antibody levels that are below the limit ofdetection of this assay.[employer] Live HIV Ag/Ab Combo assay result andsupplemental assay results should be interpreted inconjunction with the patient's clinical presentation,history and other laboratory results. If the results areinconsistent with clinical evidence, additional testing issuggested to confirm the result. Blood Venous blood specimen / Unknown 08/09/2023 1:42 PM EDT 08/09/2023 4:18 PM EDT us Pj Nuria [facility] BLOOD ORDERABLES Estela shyann Result [facility] [address] [place] [phone] * HPV mRNA E6/E7 w/Reflex to HPV Genotypes 16, 18/45 (08/09/2023 1:26 PM EDT) HPV nRNA E6/E7 Not Detected Not Detected [facility] Comment:Methodology: Transcr iption-Mediated AmplificationThis assay detects E6/E7 viral messenger RNA (mRNA) from 14high-risk HPV types (16,18,31,33,35,39,45,51,52,56,58,59,66,68).Cervical sources are required for HPV testing.If a vaginal source from a patient who has had atotal hysterectomy with removal of cervix wassubmitted, please contact the testing laboratoryfor alternative testing options.For additional information, please refer tohttp://education.[employer]/faq/OXR799b4(This link if provided for information/educational purposes only.)THIS TEST WAS PERFORMED AT:[address] [place] [phone] PLATT MD HPV mRNA E6/E7 [facility] HPV 16 RNA [facility] HPV 18/45 RNA [facility] 08/09/2023 1:26 PM EDT 08/10/2023 9:15 AM EDT us Pj Esteban [facility] CYTOLOGY ORDERABLES F inal Result [facility] [address] [place] [phone] * Pap Smear (08/09/2023 1:26 PM EDT) Swab Vaginal structure / Unknown 08/09/2023 1:26 PM EDT 08/10/2023 9:15 AM EDT Narrative [facility] - 08/17/2023 9:32 AM EDT ----- ------- Name: Kae Jo ?Age/Sex: 38/F ? : 1985 Unit#: [id number] ?? Attend Dr: PJ ESTEBAN CNM ?Re08/09/23 ?Status: DEP REF ? [facility] [address] ? Disch: ? ----- ------- SPEC : [id number] ? RECD: 08/10/23 ? STATUS: ??SOUT ? REQ NUM: [id number] ? SAY: 08/09/23-1326 ? SUBM DR: PJ ESTEBAN CNBritney ? ENTERED: ??08/10/23-1300 ?SP TYPE: Pap Smr ?OTHR DR: ? ORDERED: ??Pap Smear ? Interpretation ?? Satisfactory for evaluation. ?? Coccobacilli consistent with shift in vaginal wiley. ?? Negative for intraepithelial lesion or malignancy. ?HPV mRNA E6/E7: ?NOT DETECTED ? This assay detects E6/E7 viral messenger RNA (mRNA) from 14 high-risk HPV types (16, 18, ?? 31, 33, 35, 39, 45, 51, 52, 56, 58, 59, 66, 68) ?? HPV testing performed by [facility], [place], [place]. ??See reference laboratory ?? portion of the EMR for entire report. ?Clinical Information LMP: Unknown date Previous PAP test: Unknown date/findings ? Material Received ?? ThinPrep-Vaginal/Cervical ----- ------- Signed (signature on file) KEVIN Wright ([facility]) 08/17/23 0932 ? ----- ------- ? END OF REPORT ? us [facility] LAB CYTOLOGY ORDERABLES F inal Result [facility] [address] [place] [phone] * Hepatitis C Antibody with Reflex to HCV, RNA, Quantitative, Real-Time PCR (09/25/2022 11:51 AM EDT) Pathologist [facility] Hepatitis C Antibody NON-REACT [place] NON-REACT DAKOTA [facility] [place] [facility] Index 0.04 <1.00 [facility] [place] [facility] Comment: HCV antibody was non-reactive. There is no laboratory evidence of HCV infection. In most cases, no further action is required. However, if recent HCV exposure is suspected, a test for HCV RNA (test code 23275) is suggested. For additional information please refer to http://education.GameCrush.MySongToYou/faq/DXI24w5 (This link is being provided for informational/ educational purposes only.) Blood Venous blood specimen / Unknown 09/25/2022 11:51 AM EDT 09/25/2022 11:52 AM EDT us Yahir Butler MD LAB BLOOD ORDERABLES Final Res ult [facility] [address] [facility], [place] [phone] [facility] [address] [place] [phone] from Last 3 Months or Most Recently Relevant to Health Maintenance Insurance HSN PARTIAL Care Teams Setter Machine Relationship Specialty Start Date End Date Maggy Carrera FNP [address] [place] [phone] PCP - General Family Medicine 10/25/21
--- OUTSIDE RECORDS SUMMARY | 2024-07-19 11:09 | XMS_ITS | Encounter Summary ---
Author Organization [employer] Address [address] [place] [address] Care Team Providers Care Information Systems Consultant Name Role Phone Maggy Carrera PATRICIA Primary Care Provider [phone] Encounter Details Date Type Department Care Team (Latest Contact Info) Description 07/19/2024 Travel Social History Tobacco Use Types Packs/Day Years [...] Description 07/28/2024 9:15 AM EST Office Visit [facility] MEDICINE [address] [place] [address] Yahir Butler MD [address] [place] [address] 08/10/2024 2:00 PM EDT Office Visit [facility] MED & PEDS [address] [place] [address] Oksana Quiñones CNM [address] [place] [address] 08/16/2024 10:00 AM EDT Office Visit [facility] MEDICINE [address] [place] [address] Maggy Carrera FNP [address] [place] [address] documented as of this encounter Visit Diagnoses Not on filedocumented in this encounter Additional Health Concerns Assessment Noted Time PHQ-9 Depression Total Score: 17 023 3:28 PM EDT documented as of this encounter Care Teams Information Systems Consultant Relationship Specialty Start Date End Date Maggy Carrera FNP [address] [place] [phone] PCP - General Family Medicine 03/24/21 documented as of this encounter
--- OUTSIDE RECORDS SUMMARY | 2024-07-19 11:10 | XMS_ITS | Encounter Summary ---
Author Organization [employer] Address [address] [place] [address] Care Team Providers Care Hiv/Aids Care Nurse Name Role Phone Maggy Carrera PATRICIA Primary Care Provider Encounter Details Date Type Department Care Team (Late st Contact Info) Description 10/07/2023 Orders Only [facility] MEDICINE [address] [place] [address] Isidra Pisano RN Opioid type dependence, continuous (CMS/HCC) Social History Tobacco Use Types Packs/Day Years Used Date Smoking Tobacco: Never Smokeless Tobacco: Never Alcohol Use Standard Drinks/Week Comments Never 0 (1 standard drink = 0.6 oz pur e alcohol) Depression Answer Date Recorded Patient Health Questionnaire-9 Score 17 10/22/2022 Housing Stability Answer Date Recorded What is your housing situation today? I have dejahjavier roy 04/16/[address] you [...] 9:15 AM EST Office Visit [facility] MEDICINE [address] [place] [address] Yahir Butler MD [address] [place] [address] 08/10/2024 2:00 PM EDT Office Visit [facility] MED & PEDS [address] [place] [address] Oksana Quiñones CNM [address] [place] [address] 08/16/2024 10:00 AM EDT Office Visit [facility] MEDICINE [address] [place] [address] Maggy Carrera FNP [address] [place] [address] Scheduled Orders Name Type Priority Associated Diagnoses Orde r Schedule Hepatic Function Panel Lab Routine Opioid type dependence, continuous (CMS/HCC) Expected: 10/07/2023 (Approximate), Expires: 10/06/2024 Hepatitis C Antibody with Reflex to HCV, RNA, Quantitative, Real-Time PCR Lab Routine Opioid type dependence, continuous (CMS/HCC) Expected: 10/07/2023 (Approximate), Expires: 10/06/2024 documented as of this encounter Visit Diagnoses Diagnosis Opioid type dependence, continuous (CMS/HCC) Opioid type dependence, continuous documented in this encounter Additional Health Concerns Assessment Noted Time PHQ-9 Depression Total Score: 17 023 3:28 PM EDT documented as of this encounter Care Teams Hiv/Aids Care Nurse Relationship Specialty Start Date End Date Maggy Carrera FNP [address] [place] [address] PCP - General Family Medicine 03/24/21 documented as of this encounter
--- OUTSIDE RECORDS SUMMARY | 2024-07-19 11:10 | XMS_ITS | Encounter Summary ---
Author Organization [employer] Address [address] [place] [address] Care Team Providers Care Fundraising Specialist Name Role Phone Maggy Carrera PATRICIA Primary Care Provider [phone] Reason for Visit * Reason Comments Med Refill Encounter Details Date Type Department Care Team ([facility] st Contact Info) Description 10/15/2023 Refill [facility] [address] [place], [place] [phone] Yahir Butler MD [address] [place] [address] Opioid use disorder Social History Tobacco Use [...] 9:15 AM EST Office Visit [facility] [address] [place] [address] Yahir Butler MD [address] [place] [address] 08/10/2024 2:00 PM EDT Office Visit [facility]S [address] [place] [address] Oksana Quiñones CNM [address] [place] [address] 08/16/2024 10:00 AM EDT Office Visit [facility] MED[facility]INE [address] [place] [address] Maggy Carrera FNP [address] [place] [address] documented as of this encounter Visit Diagnoses Diagnosis Opioid use disorder documented in this encounter Additional Health Concerns Assessment Noted Time PHQ-9 Depression Total Score: 17 023 3:28 PM EDT documented as of this encounter Care Teams Fundraising Specialist Relationship Specialty Start Date End Date Maggy Carrera FNP [address] [place] [phone] PCP - General Family Medicine 03/24/21 documented as of this encounter
--- OUTSIDE RECORDS SUMMARY | 2024-07-19 11:10 | XMS_ITS | Encounter Summary ---
Author Organization [employer] Address [address] [place] [address] Care Team Providers Care Manager Meeting Name Role Phone Maggy Carrera PATRICIA Primary Care Provider [phone] Reason for Visit * Reason Onset Date Comments Appointment Request 10/09/2022 Encounter Details Date Type Department Care Team ([facility] st Contact Info) Description 10/09/2022 Telephone [facility] MEDICINE [address] [place] [address] Kamilah Pedersen, VALERIA Appointment Request Social History Tobacco Use Types Packs/Day Years Used Date Smoking Tobacco: Never Smokeless Tobacco: Never PHQ-2 Answer Date Recorded Patient Health Questionnaire-2 Score 6 09/30/2022 Comments Unknown Sex and Gender Information Value [...] suspected to have Coronavirus/COVID-19? No / Unsure 09/30/2022 2:05 PM EDT documented as of this encounter Miscellaneous Notes * Telephone Encounter - Monica Sliva - 10/09/2022 12:36 PM EDT Tc from pt returning call to schedule a follow up appt with PCP per [facility] nurse , teletypewriter installer attempted toschedule however zero availability. Please contact at [phone] documented in this encounter Plan of Treatment Upcoming Encounters Date Type Department Care Team (Late st Contact Info) Description 07/28/2024 9:15 AM EST Office Visit [facility] MEDICINE [address] [place] [address] Yahir Butler MD [address] [place] [address] 08/10/2024 2:00 PM EDT Office Visit [facility] MED & PEDS [address] [place], [place] [phone] Oksana Quiñones CNM [address] [place] [address] 08/16/2024 10:00 AM EDT Office Visit [facility] MEDICINE [address] [place] [address] Maggy Carrera FNP [address] [place] [address] documented as of this encounter Visit Diagnoses Not on filedocumented in this encounter Additional Health Concerns Assessment Noted Time PHQ-9 Depression Total Score: 21 023 3:34 PM EDT documented as of this encounter Care Teams Manager Meeting Relationship Specialty Start Date End Date Maggy Carrera FNP [address] [place] [address] PCP - General Family Medicine 03/24/21 documented as of this encounter
--- OUTSIDE RECORDS SUMMARY | 2024-07-19 11:10 | XMS_ITS | Encounter Summary ---
Author Organization [employer] Address [address] [facility] [address] 7t [place] [address] Care Team Providers Care River Tester Name Role Phone Maggy Carrera PATRICIA Primary Care Provider [phone] Reason for Visit * Reason Comments Med Refill Encounter Details Date Type Department Care Team ([facility] st Contact Info) Description 06/25/2023 Refill [facility] MEDICINE [address] [place], [place] [phone] Yahir Butler MD 230 [place], [place] [phone] Opioid use disorder Social History Tobacco Use [...] Description 07/28/2024 9:15 AM EST Office Visit [facility] MEDICINE [address] [place] [address] Yahir Butler MD 230 [place] [address] 08/10/2024 2:00 PM EDT Office Visit [facility] CHC MED & PEDS [address] [place] [address] Oksana Quiñones CNM [address] [place] [address] 08/16/2024 10:00 AM EDT Office Visit [facility] MEDICINE [address] [place] [address] Maggy Carrera FNP 505 [place] [address] documented as of this encounter Visit Diagnoses Diagnosis Opioid use disorder documented in this encounter Additional Health Concerns Assessment Noted Time PHQ-9 Depression Total Score: 17 023 3:28 PM EDT documented as of this encounter Care Teams River Tester Relationship Specialty Start Date End Date Maggy Carrera FNP [address] [place] [address] PCP - General Family Medicine 03/24/21 documented as of this encounter
--- OUTSIDE RECORDS SUMMARY | 2024-07-19 11:10 | XMS_ITS | Clinical Summary ---
Author Organization [facility] Address [address] [place] [address] Care Team Providers Care Feeder Loader Name Role Phone Dao Jimenez MD Primary Care Provider [phone] Immunizations Name Administration Dates Next Due Pfizer SARS-CoV-2 COVID-19, mRNA, LNP-S, preservative free 08/01/2020,07/11/2020 Social History Tobacco Use Types Packs/Day Years Used Date Smoking Tobacco: Never Assessed Comments Unknown Sex and Gender Information Value Date Recorded Sex Assigned at Not on file Legal Sex Female 7:22 PM EST Gender Identity Not on file Sexual Orientation Not on file Last Filed Vital Signs Vital Sign Reading Time Taken Comments Blood Pressure - - Pulse - - Temperature - - Respiratory Rate - - Oxygen Saturation - - Inhaled Oxygen Concentration - - Weight 78 kg (172 lb) 09/23/2023 9:24 AM EDT Height 160 cm (5' 3 ) 09/23/2023 9:24 AM EDT Body Mass Index 30.47 09/23/2023 9:24 AM EDT Plan of Treatment Health Maintenance Due Date Last Done Comments Breast Cancer Screening 1984 DTaP,Tdap,and Td Vaccines (1 - Tdap) 01/25/2003 Hepatitis B Vaccines (1 of 3 - 19+ 3-dose series) 01/25/2003 Cervical Cancer Screening: P ap Smear 01/25/2005 Depression Screening 05/02/2022 HIV Screening 05/02/2022 Hepatitis C Screening 05/02/2022 Social Influencers of Health Screening 05/02/2022 COVID-19 Vaccine (3 - 2023-2 5 season) 2024 08/01/2020, 07/11/2020 Influenza Vaccine (#1) 2024 HIB Vaccines Aged Out No longer eligi ble based on patient's age to complete this topic HPV Vaccines Aged Out No longer eligi ble based on patient's age to complete this topic Hepatitis A Vaccines Aged Out No long er eligible based on patient's age to complete this topic IPV Vaccines Aged Out No longer eligi ble based on patient's age to complete this topic MMR Vaccines Aged Out No longer eligi ble based on patient's age to complete this topic Meningococcal ACWY Vaccine Aged Out N o longer eligible based on patient's age to complete this topic Meningococcal B Vacine Aged Out No lo nger eligible based on patient's age to complete this topic Pneumococcal Vaccine: Pediatrics (0 to 5 Years) and At-Risk Patients (6 to 64 Years) Aged Out No longer eligible b ased on patient's age to complete this topic RSV Immunization Patients Under 20 months Aged Out No longer eligible b ased on patient's age to complete this topic Varicella Vaccines Aged Out No longer eligible based on patient's age to complete this topic Care Teams Feeder Loader Relationship Specialty Start Date End Date Doa Jimenez MD [address] [place] [address] PCP - General 05/04/05
--- OUTSIDE RECORDS SUMMARY | 2024-07-19 11:10 | XMS_ITS | Encounter Summary ---
Author Organization [employer] Address [address] [facility] [address] 7t [place] [address] Care Team Providers Care Seamer Operator Name Role Phone Maggy Carrera PATRICIA Primary Care Provider Reason for Visit * Reason Comments Med Refill Encounter Details Date Type Department Care Team ([facility] st Contact Info) Description 04/30/2023 Refill [facility] MEDICINE [address] [place], [place] [phone] Yahir Butler MD [address] [place] [address] Opioid use disorder Social History Tobacco Use [...] Office Visit [facility] MEDICINE [address] [place] [address] Yahir Butler MD 230 [place] [address] 08/10/2024 2:00 PM EDT Office Visit [facility] CHC MED & PEDS [address] [place] [address] Oksana Quiñones CNM [address] [place] [address] 08/16/2024 10:00 AM EDT Office Visit [facility] MEDICINE [address] [place] [address] Maggy Carrera FNP 505 [place] [address] documented as of this encounter Visit Diagnoses Diagnosis Opioid use disorder documented in this encounter Additional Health Concerns Assessment Noted Time PHQ-9 Depression Total Score: 17 023 3:28 PM EDT documented as of this encounter Care Teams Seamer Operator Relationship Specialty Start Date End Date Maggy Carrera FNP [address] [place] [address] PCP - General Family Medicine 03/24/21 documented as of this encounter
--- OUTSIDE RECORDS SUMMARY | 2024-07-19 11:10 | XMS_ITS | Encounter Summary ---
Author Organization [employer] Address [address] [place] [address] 7t [place] [address] Care Team Providers Care Supervisor Tunnel Heading Name Role Phone Maggy Carrera PATRICIA Primary Care Provider [phone] Reason for Visit * Reason Comments Med Refill Encounter Details Date Type Department Care Team (Late st Contact Info) Description 03/05/2023 Refill [facility] MEDICINE 230 [place], [place] [phone] Yahir Butler MD [address] [place], [place] [phone] Opioid use disorder Social History Tobacco Use Types Packs/Day Years Used Date Smoking Tobacco: Never Smokeless Tobacco: Never Alcohol Use Standard Drinks/Week Comments Never 0 (1 standard drink = 0.6 oz pur e alcohol) Depression Answer Date Recorded Patient Health Questionnaire-9 Score 17 10/22/2022 Depression Answer Date Recorded Patient Health Questionnaire-2 [...] Description 07/28/2024 9:15 AM EST Office Visit [facility] MEDICINE [address] [place] [address] [phone] Yahir Butler MD [address] [place], [place] [phone] 08/10/2024 2:00 PM EDT Office Visit [facility] CHC MED & PEDS [address] [place] [address] Oksana Quiñones CNM [address] [place] [address] 08/16/2024 10:00 AM EDT Office Visit [facility] MEDICINE 230 [place] [address] Maggy Carrera FNP 505 [place] [address] documented as of this encounter Visit Diagnoses Diagnosis Opioid use disorder documented in this encounter Additional Health Concerns Assessment Noted Time PHQ-9 Depression Total Score: 17 023 3:28 PM EDT documented as of this encounter Care Teams Supervisor Tunnel Heading Relationship Specialty Start Date End Date Maggy Carrera FNP [address] [place] [address] PCP - General Family Medicine 03/24/21 documented as of this encounter
[2024-07-19 11:37] LABS: Eosinophils Absolute Auto 0.1 X10*3/uL (0.0-0.4); Imm Gran Abs Auto 0.01 X10*3/uL (0.00-0.03)
[2024-07-19 11:45] LABS: Estimated Average Glucose 111 mg/dL; Hemoglobin A1C 123.2034 umol/L; Hemoglobin A1c % 5.5 % (<6.0); Total Hemoglobin (HGBA1C) 3323.2404 umol/L
[2024-07-19 11:56] LABS: Basophils Percent Auto 0.7 % (0-2); Eosinophils Percent Auto 2.1 % (0-4); Hematocrit 38.8 % (37.0-47.0); Hemoglobin 12.8 g/dl (12.0-16.0); Imm Gran Pct Auto 0.2 % (0.0-0.4); Lymphocytes Absolute Auto 2.1 X10*3/uL (1.2-4.9); Lymphocytes Percent Auto 50.2 % (20-40); Mean Corpuscular Hemoglobin 29.1 pg (27.0-33.0); Mean Corpuscular Volume 88.2 fL (80.0-98.0); Mean Platelet Volume 9.3 fL (9.4-12.3); Monocytes Absolute Auto 0.3 X10*3/uL (0.1-1.2); Monocytes Percent Auto 6.4 % (2-11); Neutrophils Absolute Auto 1.7 x10*3/uL (2.0-8.3); Neutrophils Percent Auto 40.4 % (45-73); Platelet Count 286 X10*3/uL (160-400); Red Cell Distribution Width 14.4 % (11.0-16.0); White Blood Count 4.2 X10*3/uL (4.8-10.8)
[2024-07-19 11:58] LABS: MANUAL DIFF FLAG NO
[2024-07-19 12:04] LABS: Creatinine Urine 51.73 mg/dL; Microalbumin Urine < 5.0 mg/L
[2024-07-19 12:20] LABS: Alanine Aminotransferase 34 U/L (0-31); Albumin Level 4.5 g/dL (3.5-5.0); Alkaline Phosphatase 35 U/L (39-117); Anion Gap 11 (12-20); Aspartate Amino Transferase 33 U/L (5-31); Bilirubin Total 0.4 mg/dL (0.0-1.0); Blood Urea Nitrogen 8 mg/dL (9-16); Calcium 9.4 mg/dL (8.4-10.2); Carbon Dioxide 26 mmol/L (22-29); Chloride 105 mmol/L (96-108); Cholesterol 181 mg/dL (<200); Estimated Glomerular Filt Rate > 60; Glucose Random 100 mg/dL (60-115); HDL Cholesterol 59 mg/dL (>40); Iron 55 mcg/dL (30-160); LDL Cholesterol Calculated 113 mg/dL (<100); Percent Iron Saturation 16 % (15-50); Sodium 138 mmol/L (135-145); Total Iron Binding Capacity 352 mcg/dL (228-428); Triglycerides 48 mg/dL (<150); Unsaturated Iron Binding 297 ug/dL
[2024-07-19 12:21] LABS: HIV AB/AG Nonreactive (Nonreactive); HIV Num 1 0.05 S/CO (0.00-0.99)
[2024-07-19 12:27] LABS: Ferritin 15 ng/mL (10-250); TSH reflex Free T4 0.62 uIU/mL (0.32-4.0); Vitamin D 25-OH Total 33.9 ng/mL (>30)
[2024-07-19 14:32] LABS: CT PCR NOT DETECTED (Not Detect.); NG PCR NOT DETECTED (Not Detect.)
[2024-07-20 13:57] LABS: HCV Log PCR <1.18 NOT DETECTED Log IU/mL (NOT DETECTED); HepC Viral Load <15 NOT DETECTED IU/mL (NOT DETECTED)
[2024-07-21 09:43] LABS: RPR Rapid Plasma Reagin NON-REACTIVE (NON-REACTIVE)
== END 2024-07-19 10:31 | disposition home or self-care (01) ==
LOC: HO.HHCL 10:30
PROVIDERS: Visit Provider Registered Nurse
DX: Z00.00 Encounter for general adult medical examination without abnormal findings (principal)
CPT/HCPCS: 80053; 80061; 82043; 82306; 82570; 82728; 83036; 83540; 84443; 85025; 86592; 87389; 87491; 87522; 87591

== ENCOUNTER 2024-08-06 13:00 | Outpatient (REF) | payer OTHER, SELFPAY ==
--- NOTE | ~2024-08-06 | MR_ITS ---
EXAMINATION: MRI Abdomen without and with contrast HISTORY: Abnormal findings on CT 1.5 years ago. COMPARISON: There are no prior studies at this institution for comparison. TECHNIQUE: Axial in and out of phase T1-weighted gradient echo, axial diffusion weighted, and axial and coronal HASTE T2 with fat saturation images were obtained through the abdomen. 3D MRCP Reconstructed and thin and thick slab images of the biliary tree were obtained. Subsequently, fat suppressed axial and coronal T1-weighted images were obtained after the intravenous administration of 8.5 mL Gadavist. FINDINGS: There is no significant loss of signal intensity within the liver on opposed phase imaging to suggest steatosis. No enhancing liver mass is identified. There is no intra or extrahepatic biliary ductal dilatation. The hepatic and portal veins are patent. The gallbladder is unremarkable. No intraluminal filling defects are identified within the common bile duct to suggest choledocholithiasis. The spleen, pancreas, adrenals, and kidneys are unremarkable. No retroperitoneal lymphadenopathy or ascites is identified in the upper abdomen. The stomach is distended with fluid. The visualized bones demonstrate normal signal intensity. Incidental note is made of a 2.5 cm uterine fibroid. MR/MR abdomen wo/w con IMPRESSION: 1. No liver abnormality is identified. 2. 2.5 cm uterine fibroid. Electronically signed by: Ad Moreno MD 08/08/2024 07:10 AM EDT
--- OUTSIDE RECORDS SUMMARY | 2024-08-06 13:03 | XMS_ITS | Encounter Summary ---
Author Organization [employer] Address [address] [facility] [address] 7t [place] [address] Care Team Providers Care Coordinator Of Evaluation Name Role Phone Maggy Carrera Primary Care Provider [phone] Reason for Visit * Reason Onset Date Comments Referral 05/29/2024 Encounter Details Date Type Department Care Team ([facility] st Contact Info) Description 05/29/2024 Telephone [facility] MEDICINE [address] [place] [address] Maggy Carrera FNP [address] [place] [address] Referral Social History Tobacco Use Types Packs/Day [...] TC from pt requesting new referral: Address: [address] [place] [address] [address], [place] [address] Facility Name: [facility] Type of Specialist: Interpreter And Translator DX: Ingrown Toenail Provider: Min Simon Pt stated due to insurance change she would need new emergency referral. Emergency because of the ingrown toenail. Please contact pt at at [phone], she would like to further discuss. documented in this encounter Plan of Treatment Upcoming Encounters Date Type Department Care Team (Late st Contact Info) Description 08/10/2024 2:00 PM EDT Office Visit [facility] CHC MED & PEDS 505 [place] [address] Oksana Quiñones CNM [address] [place] [address] 08/16/2024 10:00 AM EDT Office Visit [facility] MEDICINE [address] [place] [address] Maggy Carrera FNP 505 [place] [address] 09/22/2024 10:45 AM EDT Office Visit [address] [address] Yahir Butler MD 230 [place] [address] documented as of this encounter Visit Diagnoses Not on filedocumented in this encounter Additional Health Concerns Assessment Noted Time PHQ-9 Depression Total Score: 17 023 3:28 PM EDT documented as of this encounter Care Teams Coordinator Of Evaluation Relationship Specialty Start Date End Date Maggy Carrera FNP [address] [place] [address] PCP - General Family Medicine 03/24/21 documented as of this encounter
--- OUTSIDE RECORDS SUMMARY | 2024-08-06 13:03 | XMS_ITS | Encounter Summary ---
Author Organization [employer] Address [address] [facility] [address] 7[address] [place] [address] Care Team Providers Care Cook Fruit Name Role Phone Maggy Carrera PATRICIA Primary Care Provider [phone] Reason for Visit * Reason Comments Med Refill Encounter Details Date Type Department Care Team ([facility] st Contact Info) Description 06/25/2023 Refill [facility] MEDICINE 230 [place], [place] [phone] Yahir Butler MD 230 [place], [place] [phone] Opioid use disorder Social History Tobacco Use [...] Description 08/10/2024 2:00 PM EDT Office Visit [facility] CHC MED & PEDS [address] [place] [address] Oksana Quiñones CNM 230 [place] [address] 08/16/2024 10:00 AM EDT Office Visit [facility] MEDICINE 230 [place] [address] Maggy Carrera FNP 505 [place] [address] 09/22/2024 10:45 AM EDT Office Visit [facility] MEDICINE [address] [place] [address] Yahir Butler MD [address] [place] [address] documented as of this encounter Visit Diagnoses Diagnosis Opioid use disorder documented in this encounter Additional Health Concerns Assessment Noted Time PHQ-9 Depression Total Score: 17 023 3:28 PM EDT documented as of this encounter Care Teams Cook Fruit Relationship Specialty Start Date End Date Maggy Carrera FNP [address] [place] [address] PCP - General Family Medicine 03/24/21 documented as of this encounter
--- OUTSIDE RECORDS SUMMARY | 2024-08-06 13:03 | XMS_ITS | Encounter Summary ---
Author Organization [employer] Address [address] [address] 7[address] [place] [address] Care Team Providers Care Rerecording Mixer Name Role Phone Maggy Carrera PATRICIA Primary Care Provider [phone] Reason for Visit * Reason Onset Date Comments Chart Prep 07/18/2024 Encounter Details Date Type Department Care Team ([facility] st Contact Info) Description 07/18/2024 Telephone [facility] CHC MED & PEDS [address] [place] [address] Mary Avelar MA Chart Prep Social History [...] the past 12 months, has t he [employer], oil or water [employer] threatened to shut off services in your [...] Description 08/10/2024 2:00 PM EDT Office Visit [facility] CHC MED & PEDS 505 [place] [address] Oksana Quiñones CNM 230 [place] [address] 08/16/2024 10:00 AM EDT Office Visit [facility] MEDICINE [address] [place] [address] Maggy Carrera, PATRICIA 505 [place] [address] 09/22/2024 10:45 AM EDT Office Visit [facility] MEDICINE [address] [place] [address] Yahir Butler MD 230 [place] [address] documented as of this encounter Visit Diagnoses Not on filedocumented in this encounter Additional Health Concerns Assessment Noted Time PHQ-9 Depression Total Score: 17 023 3:28 PM EDT documented as of this encounter Care Teams Rerecording Mixer Relationship Specialty Start Date End Date Maggy Carrera FNP 230 [place] [address] PCP - General Family Medicine 03/24/21 documented as of this encounter
--- OUTSIDE RECORDS SUMMARY | 2024-08-06 13:03 | XMS_ITS | Encounter Summary ---
Author Organization [email or web address] Address [address] [facility] [address] 7t [place] [address] Care Team Providers Care Associate Program Manager Name Role Phone Maggy Carrera PATRICIA Primary Care Provider [phone] Reason for Visit * Reason Comments Med Refill Encounter Details Date Type Department Care Team ([facility] st Contact Info) Description 05/26/2024 Refill [facility] MEDICINE [address] [place], [place] [phone] Yahir Butler MD 230 [place] [address] Opioid use disorder Social History Tobacco Use [...] Description 08/10/2024 2:00 PM EDT Office Visit [facility] CHC MED & PEDS [address] [place] [address] Oksana Quiñones CNM [address] [place] [address] 08/16/2024 10:00 AM EDT Office Visit [facility] MEDICINE [address] [place] [address] Maggy Carrera FNP 505 [place] [address] 09/22/2024 10:45 AM EDT Office Visit [facility] MEDICINE [address] [place] [address] Yahir Butler MD 230 [place] [address] documented as of this encounter Visit Diagnoses Diagnosis Opioid use disorder documented in this encounter Additional Health Concerns Assessment Noted Time PHQ-9 Depression Total Score: 17 023 3:28 PM EDT documented as of this encounter Care Teams Associate Program Manager Relationship Specialty Start Date End Date Maggy Carrera FNP [address] [place] [address] PCP - General Family Medicine 03/24/21 documented as of this encounter
--- OUTSIDE RECORDS SUMMARY | 2024-08-06 13:03 | XMS_ITS | Encounter Summary ---
Author Organization [employer] Address [address] [facility] [address] 7[address] [place] [address] Care Team Providers Care Rcp Name Role Phone Maggy Carrera PATRICIA Primary Care Provider [phone] Encounter Details Date Type Department Care Team (Latest Contact Info) Description 07/19/2024 Travel Social History Tobacco Use Types Packs/Day Years Used Date Smoking Tobacco: Never Smokeless Tobacco: Never Alcohol Use Standard Drinks/Week Comments Never 0 (1 standard drink = 0.6 oz pur e alcohol) Depression Answer Date Recorded Patient Health Questionnaire-9 Score 2 07/20/2024 Patient Health Questionnaire-9 Score 2 07/20/2024 Last PHQ-9: Questionnaire Data Not on file 0 07/20/2024 Housing Stability Answer Date Recorded What is [...] Answer Date Recorded Patient Health Questionnaire-2 Score 0 07/20/2024 Internet Access Answer Date Recorded Internet Access [...] Description 08/10/2024 2:00 PM EDT Office Visit [facility] CHC MED & PEDS 505 [place] [address] Oksana Quiñones CNM 230 [place] [address] 08/16/2024 10:00 AM EDT Office Visit [facility] MEDICINE [address] [place] [address] Maggy Carrera FNP [address] [place] [address] 09/22/2024 10:45 AM EDT Office Visit [facility] MEDICINE [address] [place] [address] Yahir Butler MD [address] [place] [address] documented as of this encounter Visit Diagnoses Not on filedocumented in this encounter Additional Health Concerns Assessment Noted Time PHQ-9 Depression Total Score: 17 023 3:28 PM EDT documented as of this encounter Care Teams Rcp Relationship Specialty Start Date End Date Maggy Carrera FNP [address] [place] [address] PCP - General Family Medicine 03/24/21 documented as of this encounter
--- OUTSIDE RECORDS SUMMARY | 2024-08-06 13:03 | XMS_ITS | Encounter Summary ---
Author Organization [employer] Address [address] [facility] [address] [place] [address] Care Team Providers Care Substance Abuse Technician Name Role Phone Maggy Carrera PATRICIA Primary Care Provider [phone] Reason for Visit * Reason Comments Med Refill Encounter Details Date Type Department Care Team ([facility] st Contact Info) Description 03/31/2024 Refill [facility] MEDICINE [address] [place], [place] [phone] Yahir Butler MD 230 [place] [address] Opioid use disorder Social History Tobacco Use [...] Description 08/10/2024 2:00 PM EDT Office Visit [facility] CHC MED & PEDS 505 [place] [address] Oksana Quiñones CNM [address] [place] [address] 08/16/2024 10:00 AM EDT Office Visit [facility] MEDICINE [address] [place] [address] Maggy Carrera FNP 505 [place] [address] 09/22/2024 10:45 AM EDT Office Visit [facility] MEDICINE [address] [place] [address] Yahir Butler MD 230 [place] [address] documented as of this encounter Visit Diagnoses Diagnosis Opioid use disorder documented in this encounter Additional Health Concerns Assessment Noted Time PHQ-9 Depression Total Score: 17 023 3:28 PM EDT documented as of this encounter Care Teams Substance Abuse Technician Relationship Specialty Start Date End Date Maggy Carrera FNP [address] [place] [address] PCP - General Family Medicine 03/24/21 documented as of this encounter
--- OUTSIDE RECORDS SUMMARY | 2024-08-06 13:03 | XMS_ITS | Encounter Summary ---
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 Name Role Phone Maggy Carrera Primary Care Provider [phone] Reason for Referral * Imaging (Routine) - Authorized Specialty Diagnoses / Procedures Referred By Jonny sandoval Referred To Contact Radiology Diagnoses Abnormal finding on imaging of liver Procedures MR Liver w and w/o Contrast Maggy Carrera FNP [address] [place] [address] Phone: tel: fax: [address] Phone: tel: fax: Referral ID Status Reason Start Date Expiration Date V isits Requested Visits Authorized [id number] Authorized 07/20/2024 07/20/2025 1 1 * Consultation (Routine) - Authorized Specialty Diagnoses / Procedures Referred By Jonny t Referred To Contact Gastroenterology Diagnoses Screening for colon cancer Maggy Carrera FNP [address] [place] [address] Phone: tel: fax: [facility] Referral ID Status Reason Start Date Expiration Date Visits Requested Visits Authorized [id number] Authorized Specialty Services Required 07/20/2024 07/20/2025 1 1 * Imaging (Routine) - Authorized Specialty Diagnoses / Procedures Referred By Jonny sandoval Referred To Contact Radiology Diagnoses Encounter for screening mammogram for malignant neoplasm of breast Procedures BI Mammogram Screening Tomosynthesis Bilateral Maggy Carrera FNP [address] [place] [address] Phone: tel: fax: [facility] [address], [place] Phone: tel: fax: Referral ID Status Reason Start Date Expiration Date V isits Requested Visits Authorized [id number] Authorized 07/19/2024 07/19/2025 1 1 * Consultation (Routine) - Closed Specialty Diagnoses / Procedures Referred By Jonny sandoval Referred To Contact Podiatry Diagnoses Ingrown nail of great toe Maggy Carrera FNP [address], [place] Phone: tel: fax: Min Simon DPM [address] [place] [address] Phone: tel: fax: Referral ID Status Reason Start Date Expiration Date V isits Requested Visits Authorized [id number] Closed Specialty Services Required 07/19/2024 07/19/2025 1 1 * Consultation (Routine) - Pending Review Specialty Diagnoses / Procedures Referred By Jonny sandoval Referred To Contact Optometry Diagnoses Encounter for routine history and physical examination of adult Maggy Carrera FNP [address] [place] [address] Phone: tel: fax: [facility] OPTOMETRY [address] [place] [address] Phone: tel: fax: Referral ID Status Reason Start Date Expiration Date Visits Requested Visits Authorized [id number] Pending Review Consult and Treat 07/19/2024 07/19/2025 1 1 Encounter Details Date Type Department Care Team (Late st Contact Info) Description 07/19/2024 9:15 AM EST Office Visit [facility] [address] [place] [address] Maggy Carrera FNP [address] [place] [address] Encounter for routine history and physical examination of adult (Primary Dx); Healthcare maintenance; Abnormal finding on imaging of liver; Opioid use disorder; Ingrown nail of great toe; Encounter for screening mammogram for malignant neoplasm of breast; Iron deficiency anemia, unspecified iron deficiency anemia type; Screening for colon cancer; Seborrheic dermatitis; History of prediabetes; Dietary counseling; Exercise counseling Social History Tobacco Use Types Packs/Day Years [...] 9:36 AM EST documented in this encounter Progress Notes * PATRICIA Leon - 07/19/2024 9:15 AM EST Subjective: Kae Pearl is a 39 y.o. female who presents to the office for a physical exam. Interim history: Last PCP visit: Mar 2023 Current concerns: Flaking on scalp: Reports after using OTC Nix treatment has been experiencing flaking around front and back of scalp, extending at times to ears and eyebrows. Has not used any treatment yet. Paronychia -history of recurrent paronychia of right great toe. ED visit Jul 2022 with drainage of paronychia and p.o. antibiotics. Not currently active. Previously following with Dr. Simon, referral placed to reestablish care. Previous reported history of prediabetes for which she had been using metformin with good response.Will check A1c and sent in refill of metformin as requested. Reviewed med safety and side effects. Patient Active Problem List Diagnosis Iron deficiency anemia Opioid use disorder History of nephrolithiasis Abnormal finding on imaging of liver Healthcare maintenance No past surgical history on file. 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 Not using contraception/STI protection. Mague PRN. STI counseling offered/provided. Mental health -denies SI/HI/thoughts of self-harm Patient's last menstrual period was 06/14/2024 (exact date). No Known Allergies Review of Systems Constitutional: Negative for chills, fatigue and fever. HENT: Negative for congestion. Eyes: Negative for visual disturbance. Respiratory: Negative for cough, shortness of breath and wheezing. Cardiovascular: Negative for chest pain and palpitations. Gastrointestinal: Negative for constipation, diarrhea, nausea and vomiting. Skin: Positive for rash. Psychiatric/Behavioral: Negative for suicidal ideas. Visit Vitals BP 128/66 (BP Location: Left arm, Patient Position: Sitting, BP Cuff Size: Large adult) Pulse 60 Temp 96.8 ??F (36 ??C) (Temporal) Resp 18 Ht 5' 2 (1.575 m) Wt 191 lb (86.6 kg) LMP 06/14/2024 (Exact Date) SpO2 98% BMI 34.93 kg/m?? OB Status Having periods Smoking Status Never BSA 1.95 m?? Physical Exam Vitals reviewed. Constitutional: Appearance: Normal appearance. HENT: Head: Normocephalic and atraumatic. Right Ear: Tympanic membrane, ear canal and external ear normal. Left Ear: Tympanic membrane, ear canal and external ear normal. Nose: Nose normal. No congestion. Mouth/Throat: Mouth: Mucous membranes are moist. Pharynx: No oropharyngeal exudate or posterior oropharyngeal erythema. Eyes: General: Right eye: No discharge. Left eye: No discharge. Extraocular Movements: Extraocular movements intact. Pupils: Pupils are equal, round, and reactive to light. Cardiovascular: Rate and Rhythm: Normal rate and regular rhythm. Heart sounds: Normal heart sounds. Pulmonary: Effort: Pulmonary effort is normal. Breath sounds: Normal breath sounds. Abdominal: General: There is no distension. Palpations: Abdomen is soft. Musculoskeletal: General: Normal range of motion. Cervical back: Normal range of motion. No tenderness. Skin: General: Skin is warm. Comments: Mild white flaking throughout scalp Neurological: Mental Status: She is alert and oriented to person, place, and time. Psychiatric: Mood and Affect: Mood normal. Behavior: Behavior normal. Problem List Items Addressed This Visit Hematologic Iron deficiency anemia Current Assessment & Plan - Repeat CBC and iron studies Other Opioid use disorder Current Assessment & Plan - Continues following with [facility] clinic -Well-controlled with Suboxone Relevant Medications docusate sodium (Colace) 100 MG capsule Abnormal finding on imaging of liver Overview Incidental finding during ED visit in Feb 2023 - 1.6cm enhancing hepatic segment Rec non-emergent MRI liver w/ and w/o contrast for follow up Order placed 04/17/23 Current Assessment & Plan Unable to attend last appointment. Will rerefer at this time. Relevant Orders MR Liver w and w/o Contrast Healthcare maintenance Current Assessment & Plan Breast CA: Ordered 07/19/2024 Pap: July 2023 NILM/HPV neg. Repeat in 3 years d/t no previous results. Colon CA: Referred for eval Jul 2024 (39Y/O) due to first-degree relative with colon cancer OPH: referral to [facility] Eye Care placed 07/19/2024 Hep B surface antibody reactive in October 2016 Last PE: 07/19/2024 Relevant Medications Mague 30 MG tablet Other Visit Diagnoses Encounter for routine history and physical examination of adult - Primary -Cardiopulmonary exam WNL -Encouraged healthy lifestyle habits including routine physical exercise and diet rich in fruits and vegetables Relevant Orders Referral to [facility] Chlamydia/N. Gonorrhoeae RNA, TMA, Urogenitial (Completed) Hepatitis C Viral RNA, Quantitative, Real-Time PCR (Completed) RPR (Monitor) with Reflex to Titer HIV-1/2 Antigen and Antibodies, Fourth Generation, with Reflexes (Completed) Albumin, Random Urine W/Creatinine (Completed) Lipid Panel, Standard (Completed) Hemoglobin A1c (Completed) TSH with Reflex to Free T4 (Completed) Comprehensive Metabolic Panel (Completed) CBC auto differential (Completed) Iron And Total Iron Binding Capacity (Completed) Ferritin (Completed) Vitamin D, 25-Hydroxy, Total, Immunoassay (Completed) Ingrown nail of great toe Relevant Orders Referral to Podiatry Encounter for screening mammogram for malignant neoplasm of breast Relevant Orders BI Mammogram Screening Tomosynthesis Bilateral Screening for colon cancer Relevant Orders Referral to Gastroenterology Seborrheic dermatitis - Start Belding-Smoothe, reviewed med use -Consider Derm referral if does not respond to treatment above Relevant Medications fluocinolone (Belding-Smoothe/FS Body) 0.01 % external oil History of prediabetes Relevant Medications metFORMIN (Glucophage) 1000 MG tablet Follow up: 2-4 weeks for lab review, sooner as needed Current Outpatient Medications Medication Sig Dispense Refill buprenorphine-naloxone (Suboxone) 12-3 MG per sublingual film Place 1 Film under the tongue Once per day. 28 Film 1 buprenorphine-naloxone (Suboxone) 4-1 MG per sublingual film Place 2 Film under the tongue Once perday. 56 Film 1 docusate sodium (Colace) 100 MG capsule TAKE 1 OR 2 CAPSULES BY MOUTH EVERY NIGHT AT BEDTIME NEEDED CONSTIPATION. TAKE WITH LARGE GLASS OF LIQUIDS 90 capsule 2 Mague 30 MG tablet TAKE 1 TABLET BY MOUTH UP TO 5 DAYS AFTER UNPROTECTED INTERCOURSE 1 tablet 3 fluocinolone (Belding-Smoothe/FS Body) 0.01 % external oil Apply before bed on a damp scalp, wrap with head covering. Wash out in the morning. Use 3x per week for treatment, and once every 1-2 weeks for prevention. 120 mL 1 ibuprofen 800 MG tablet TAKE 1 TABLET BY MOUTH THREE TIMES DAILY WITH FOOD Ketotifen Fumarate 0.035 % solution Administer 1 drop into affected eye(s) if needed in the morningand at bedtime (eye redness or itching). 10 mL 2 metFORMIN (Glucophage) 1000 MG tablet Take 1 tablet (1,000 mg) by mouth with breakfast and with evening meal. 180 tablet 1 ulipristal (Mague) 30 mg tablet Take one tablet by mouth up to five days after sex. Do not use more than once per menstrual cycle. If repeat dose is needed in same cycle, please contact prescriber. 1 tablet 11 valACYclovir (Valtrex) 500 MG tablet Take 1 tablet (500 mg) by mouth Once per day. May take one tablet twice a day for three days if outbreak, otherwise one tablet daily 90 tablet 2 No current facility-administered medications for this visit. Immunization History Administered Date(s) Administered DTaP 03/04/2015 Hep A, Adult 11/07/2021, 12/17/2023 Influenza injectable quadrivalent preservative free 03/04/2016, 02/25/2020, 02/27/2022, 04/16/2023 Influenza, Injectable, MDCK, preservative free 03/04/2015 Pfizer Covid-19 Vaccine 12+ 07/11/2020, 08/01/2020 Pfizer Covid-19 Vaccine 12+ loreta-sucrose (Cross Cap) 04/28/2021 Pneumococcal Conjugate PCV 20 04/16/2023 Pneumococcal Polysaccharide PPSV23 03/05/2015 Td (adult), 5 Lf tetanus toxoid, preservative free, adsorbed 04/22/2016 Tdap 01/02/2022 documented in this encounter Miscellaneous Notes * Assessment & Plan Note - PATRICIA Leon - 07/20/2024 9:03 PM ESTAssociated Problem(s): Abnormal finding on imaging of liver Unable to attend last appointment. Will rerefer at this time. * Assessment & Plan Note - PATRICIA Leon - 07/20/2024 8:59 PM ESTAssociated Problem(s): Opioid use disorder - Continues following with [facility] clinic -Well-controlled with Suboxone * Assessment & Plan Note - PATRICIA Leon - 07/20/2024 8:59 PM ESTAssociated Problem(s): Iron deficiency anemia - Repeat CBC and iron studies * Assessment & Plan Note - PATRICIA Leon - 07/19/2024 7:57 AM ESTAssociated Problem(s): Healthcare maintenance Breast CA: Ordered 07/19/2024 Pap: July 2023 NILM/HPV neg. Repeat in 3 years d/t no previous results. Colon CA: Referred for eval Jul 2024 (39Y/O) due to first-degree relative with colon cancer OPH: referral to [facility] placed 07/19/2024 Hep B surface antibody reactive in October 2016 Last PE: 07/19/2024 documented in this encounter Plan of Treatment Upcoming Encounters Date Type Department Care Team (Late st Contact Info) Description 08/10/2024 2:00 PM EDT Office Visit [facility] [address] [place] [address] Oskana Quiñones CNM [address] [place] [address] 08/16/2024 10:00 AM EDT Office Visit [facility] [address] [place] [phone] Maggy Carrera FNP [address] [place] [address] 09/22/2024 10:45 AM EDT Office Visit [address] [address] Yahir Butler MD [address] [place] [address] Scheduled Orders Name Type Priority Associated Diagnoses Orde r Schedule BI Mammogram Screening Tomosynthesis Bilateral Imaging Routine Encounter for screening mammogram for malignant neoplasm of breast Expected: 07/19/2024, Expires: 09/16/2025 MR Liver w and w/o Contrast Imaging Routine Abnormal finding on imaging of liver Expected: 07/20/2024, Expires: 07/20/2025 Scheduled Referrals Name Type Priority Associated Diagnoses Order Schedule Referral to [facility] Outpatient Referral Routine Encounter for routine history and physical examination of adult Expected: 07/19/2024 (Approximate), Expires: 07/19/2025 Referral to Podiatry Outpatient Referral Routine Ingrown nail of great toe Expected: 07/19/2024 (Approximate), Expires: 07/19/2025 Referral to Gastroenterology Outpatient Referral Routine Screening for colon cancer Expected: 07/20/2024 (Approximate), Expires: 07/20/2025 documented as of this encounter Procedures Procedure Name Priority Date/Time Associated Diagnosis Comments VITAMIN D,25-OH,TOTAL,IA Routine 07/19/2024 10:34 AM EST Encounter for routine history and physical examination of adult TSH W/REFLEX TO FT4 Routine 07/19/2024 1 0:34 AM EST Encounter for routine history and physical examination of adult HEPATITIS C VIRAL RNA, QUANTITATIVE, REAL-TIME PCR Routine 07/19/2024 10:34 AM EST Encounter for routine history and physical examination of adult ALBUMIN, RANDOM URINE W/CREATININE Routine 07/19/2024 10:34 AM EST Encounter for routine history and physical examination of adult CBC WITH AUTO DIFFERENTIAL Routine 07/19/2024 10:34 AM EST Encounter for routine history and physical examination of adult IRON AND TOTAL IRON BINDING CAPACITY Routine 07/19/2024 10:34 AM EST Encounter for routine history and physical examination of adult CHLAMYDIA/N. GONORRHOEAE RNA, TMA, UROGENITAL Routine 07/19/2024 10:34 AM EST Encounter for routine history and physical examination of adult RPR (MONITOR) W/REFL TITER Routine 07/19/2024 10:34 AM EST Encounter for routine history and physical examination of adult HIV 1/2 ANTIGEN/ANTIBODY, FOURTH GENERATION W/RFL Routine 07/19/2024 10:34 AM EST Encounter for routine history and physical examination of adult HEMOGLOBIN A1C Routine 07/19/2024 10:34 AM EST Encounter for routine history and physical examination of adult FERRITIN Routine 07/19/2024 10:34 AM EST Encounter for routine history and physical examination of adult LIPID PANEL, STANDARD Routine 07/19/2024 10:34 AM EST Encounter for routine history and physical examination of adult COMPREHENSIVE METABOLIC PANEL Routine 07/19/2024 10:34 AM EST Encounter for routine history and physical examination of adult documented in this encounter Results * Vitamin D, 25-Hydroxy, Total, Immunoassay (07/19/2024 10:34 AM EST) Vitamin D 25-OH Total 33.9 >30 ng/mL [facility] Comment:Health Based Referen ce Values*< 20 ng/mL [id number] ng/mL Insufficient> 30 ng/mL Sufficient*Jared WEEKS. N Engl J Med. 2007;357:266-280Care must be taken in interpreting Vitamin D results fromdifferent laboratories and methodologies. Published datademonstrated that results from patients undergoinghemodialysis may show a negative bias when tested withvarious automated 25-OH vitamin D assays when compared toLC-MS/MS.When testing samples from patients whose predominant form ofVitamin D is Vitamin D2, such as patients receiving VitaminD2 supplementation, results that are subtherapeutic shouldbe confirmed with another method such as LC-MS/MS. Blood Venous blood specimen / Unknown 07/19/2024 10:34 AM EST 07/19/2024 11:10 AM EST us Maggy Carrera WORKERS COMPENSATION ANALYST LAB BLOOD ORDERABLES Final Res ult [facility] [address] [place] [phone] * Ferritin (07/19/2024 10:34 AM EST) Ferritin 15 10 - 250 ng/mL [facility] Blood Venous blood specimen / Unknown 07/19/2024 10:34 AM EST 07/19/2024 11:10 AM EST Maggy Carrera WORKERS COMPENSATION ANALYST LAB BLOOD ORDERABLES Final Res ult Performing Organization Address [facility]/ZIP Co de Phone Number [facility] [address] [place] [address] [phone] * Iron And Total Iron Binding Capacity (07/19/2024 10:34 AM EST) Pathologist [facility] Iron 55 30 - 160 mcg/dL [facility] Total Iron Binding Capacity 352 228 - 428 mcg/dL [facility] Percent Iron Saturation 16 15 - 50 % [facility] Unsaturated Iron Binding 297 ug/dL [facility] Blood Venous blood specimen / Unknown 07/19/2024 10:34 AM EST 07/19/2024 11:10 AM EST Maggy Carrera WORKERS COMPENSATION ANALYST LAB BLOOD ORDERABLES Final Res ult Performing Organization Address [facility] Co de Phone Number [facility] [address] [place] [phone] * (ABNORMAL) CBC auto differential (07/19/2024 10:34 AM EST) [facility] White Blood Count 4.2(L) 4.8 - 10.8 X10*3/uL [facility] Red Blood Count 4.40 4.20 - 5.50 X10*6/uL [facility] Hemoglobin 12.8 12.0 - 16.0 g/dl [facility] Hematocrit 38.8 37.0 - 47.0 % [facility] Mean Corpuscular Volume 88.2 80.0 - 98.0 fL [facility] Mean Corpuscular Hemoglobin 29.1 27.0 - 33.0 pg [facility] Mean Corpuscular HGB Conc 33.0 31.0 - 35.0 g/dl [facility] Red Cell Distribution Width 14.4 11.0 - 16.0 % [facility] Platelet Count 286 160 - 400 X10*3/uL [facility] Mean Platelet Volume 9.3(L) 9.4 - 12.3 fL [facility] Neutrophils Percent Auto 40.4(L) 45 - 73 % [facility] Imm Gran Pct Auto 0.2 0.0 - 0.4 % [facility] Lymphocytes Percent Auto 50.2(H) 20 - 40 % [facility] Monocytes Percent Auto 6.4 2 - 11 % [facility] Eosinophils Percent Auto 2.1 0 - 4 % [facility] Basophils Percent Auto 0.7 0 - 2 % [facility] NRBC Pct Auto 0.0 0.0 - 0.2 /100WBC [facility] Neutrophils Absolute Auto 1.7(L) 2.0 - 8.3 x10*3/uL [facility] Imm Gran Abs Auto 0.01 0.00 - 0.03 X10*3/uL [facility] Lymphocytes Absolute Auto 2.1 1.2 - 4.9 X10*3/uL [facility] Monocytes Absolute Auto 0.3 0.1 - 1.2 X10*3/uL [facility] Eosinophils Absolute Auto 0.1 0.0 - 0.4 X10*3/uL [facility] Basophils Absolute Auto 0.0 0.0 - 0.2 X10*3/uL [facility] NRBC Abs Auto 0.000 0.0 - 0.012 X10*3/uL [facility] Blood Venous blood specimen / Unknown 07/19/2024 10:34 AM EST 07/19/2024 11:10 AM EST us Maggy Carrera WORKERS COMPENSATION ANALYST LAB BLOOD ORDERABLES Edited Re [email or web address] - Final [facility] [address] [place] [phone] * (ABNORMAL) Comprehensive Metabolic Panel (07/19/2024 10:34 AM EST) Sodium 138 135 - 145 mmol/L [facility] Potassium 4.0 3.3 - 5.1 mmol/L [facility] Chloride 105 96 - 108 mmol/L [facility] Carbon Dioxide 26 22 - 29 mmol/L [facility] Anion Gap 11(L) 12 - 20 [facility] Urea Nitrogen (BUN) 8(L) 9 - 16 mg/dL [facility] Creatinine, Serum 0.69 0.5 - 1.4 mg/dL [facility] Estimated Glomerular Filt Rate >60 [facility] Comment:Chronic Kidney Disea se: Estimated GFR < 60 mL/min/1.20l5Ffwhhk Kidney Disease: Estimated GFR < 15 mL/min/1.73m2 Glucose 100 60 - 115 mg/dL [facility] Calcium 9.4 8.4 - 10.2 mg/dL [facility] Bilirubin, Total 0.4 0.0 - 1.0 mg/dL [facility] Aspartate Amino Transferase 33(H) 5 - 31 U/L [facility] Alanine Aminotransferase 34(H) 0 - 31 U/L [facility] Total Protein 8.0 6.5 - 8.0 g/dL [facility] Albumin Level 4.5 3.5 - 5.0 g/dL [facility] Alkaline Phosphatase 35(L) 39 - 117 U/L [facility] Blood Venous blood specimen / Unknown 07/19/2024 10:34 AM EST 07/19/2024 11:10 AM EST us Maggy Carrera WORKERS COMPENSATION ANALYST LAB BLOOD ORDERABLES Final Res ult [facility] [address] [place], [place] [phone] * TSH with Reflex to Free T4 (07/19/2024 10:34 AM EST) TSH reflex Free T4 0.62 0.32 - 4.0 uIU/mL [facility] Blood 07/19/2024 10:3 4 AM EST 07/19/2024 11:10 AM EST Maggy Carrera WORKERS COMPENSATION ANALYST LAB BLOOD ORDERABLES Final Res ult Performing Organization Address [facility] Co de Phone Number [facility] [address] [place] [phone] * Hemoglobin A1c (07/19/2024 10:34 AM EST) Hemoglobin A1c 5.5 <6.0 % [facility] Comment:Hemoglobin A1C Refer ence Range Adults: 4.8 - 6.0 % Non diabetic: < 6.0 % Goal: < 7.0 %Additional Action Suggested: > 8.0 %Note: Hemoglobin A1c results are invalid for patients with abnormal amounts of HbF. Blood transfusions may impact the HbA1c concentration in the patient sample. Estimated Average Glucose 111 mg/dL [facility] Comment:eAG = Estimated ave rage glucose which is %A1C expressed asaverage glucose, using the formula of the [id number]-[id number] Glucose study (ADAG), Diabetes Care, Vol.31,#8,Dec. 2007 Blood Venous blood specimen / Unknown 07/19/2024 10:34 AM EST 07/19/2024 11:10 AM EST Maggy Carrera [facility] BLOOD ORDERABLES Final Res ult Performing Organization Address [facility] Co de Phone Number [facility] [address] [place] [phone] * (ABNORMAL) Lipid Panel, Standard (07/19/2024 10:34 AM EST) Triglycerides 48 <150 mg/dL [facility] Comment:Desirable Triglyceri de: less than 150 mg/dLBorderline High Triglyceride 150-199 mg/dLHigh Triglyceride: 200-499 mg/dLVery High Triglyceride: greater than or equal to 5OO mg/dL Cholesterol 181 <200 mg/dL [facility] Comment:Desirable Cholestero l: less than 200 mg/dLBorderline High Cholesterol: 200-239 mg/dLHigh Cholesterol: greater than 239 mg/dL LDL Cholesterol Calculated 113(H) <100 mg/dL [facility] Comment:Desirable LDL: less than 100 mg/dLNear Optimal/Above Optimal LDL: 110- 129 mg/dLBorderline High LDL: 130-159 mg/dLHigh LDL: 160-189 mg/dLVery High LDL: greater than or equal to 190 mg/dL HDL Cholesterol 59 >40 mg/dL [facility] Comment:Desirable HDL: great er than 40 mg/dL Note: This HDL assay may give artificially low results in patients with liver disease. Blood Venous blood specimen / Unknown 07/19/2024 10:34 AM EST 07/19/2024 11:10 AM EST Maggy Carrera WORKERS COMPENSATION ANALYST LAB BLOOD ORDERABLES Final Res ult Performing Organization Address [facility]/ZIP Co de Phone Number [facility] [address] [place] [phone] * Albumin, Random Urine W/Creatinine (07/19/2024 10:34 AM EST) Creatinine, Urine 51.73 mg/dL [facility] Microalbumin Urine <5.0 mg/L [facility] Microalbum Creatinine Ratio Ur TNP <30 ug/mg cr [facility] Comment:Unable to calculate albumin/creatinine ratio due to lowmicroalbumin or creatinine result. Urine 07/19/2024 10:3 4 AM EST 07/19/2024 11:22 AM EST Maggy Fosubocesario WORKERS COMPENSATION ANALYST LAB URINE ORDERABLES Final Res ult Performing Organization Address [facility]/ZIP Co de Phone Number [facility] [address] [place] [address] [phone] * HIV-1/2 Antigen and Antibodies, Fourth Generation, with Reflexes (07/19/2024 10:34 AM EST) HIV AB/AG Nonreactive Nonreactive [facility] Comment:HIV-1 p24 Ag and/or HIV-1/HIV-2 Ab not detected.A test result that is nonreactive does not exclude thepossibility of exposure to or infection with HIV-1 and/orHIV-2. Nonreactive results in this assay for individualswith prior exposure to HIV-1 and/or HIV-2 may be due toantigen and antibody levels that are below the limit ofdetection of this assay.The GeoVaxniViraloid HIV Ag/Ab Combo assay result andsupplemental assay results should be interpreted inconjunction with the patient's clinical presentation,history and other laboratory results. If the results areinconsistent with clinical evidence, additional testing issuggested to confirm the result. Blood Venous blood specimen / Unknown 07/19/2024 10:34 AM EST 07/19/2024 11:10 AM EST Maggy Carrera [facility] BLOOD ORDERABLES Final Res ult Performing Organization Address [facility] Phone [facility] [address] [place] [phone] * RPR (Monitor) with Reflex to??Titer (07/19/2024 10:34 AM EST) Pathologist [facility] RPR (Monitor) w/Refl Titer NON-REACTI VE NON-REACT [place] [facility] Comment:THIS TEST WAS PERFOR MED AT:[facility] [address] [phone] PLATT MD Rapid Plasma Reagin Ab Titer TNP [facility] Blood Venous blood specimen / Unknown 07/19/2024 10:34 AM EST 07/19/2024 11:10 AM EST Maggy Carrera [facility] BLOOD ORDERABLES Final Res ult Performing Organization Address [facility] de Phone [facility] [address] [place] [phone] * Hepatitis C Viral RNA, Quantitative, Real-Time PCR (07/19/2024 10:34 AM EST) Pathologist [facility] Hepatitis C Viral Load <15 NOT DETECTED NOT DETECTED IU/mL [facility] HCV Log PCR <1.18 NOT DETECTED NOT DETECTED Log IU/mL [facility] Comment:For additional infor juan pablo, please refer tohttp://education.[employer]/faq/AMI41d8(This link is being provided for informational/educational purposes only.)THIS TEST WAS PERFORMED AT:[facility] [phone] PLATT MD Blood 07/19/2024 10:3 4 AM EST 07/19/2024 11:10 AM EST Maggy Carrera WORKERS COMPENSATION ANALYST LAB BLOOD ORDERABLES Final Res ult [facility] [address] [place] [phone] * Chlamydia/N. Gonorrhoeae RNA, TMA, Urogenitial (07/19/2024 10:34 AM EST) [facility] CT PCR NOT DETECTED Not Detect. [facility] Comment:A not detected test result does not exclude the possibilityof infection because test results can be affected byimproper specimen collection, concurrent antibiotic therapy,or the number of organisms in the specimen which may bebelow the sensitivity of the test. As with many diagnostictests, results from the Xpert CT/NG assay should beinterpreted in conjunction with other laboratory andclinical data available to the clinician.Xpert CT/NG performance has not been evaluated in patientsless than 14 years of age. The assay should not be used forthe evaluationof suspected sexual abuse or for other medico-legalindications. Additional testing is recommended in anycircumstance when false positive or false negative resultscould lead to adverse medical, social or psychologicalconsequences. NG PCR NOT DETECTED Not Detect. [facility] Comment:A not detected test result does not exclude the possibilityof infection because test results can be affected byimproper specimen collection, concurrent antibiotic therapy,or the number of organisms in the specimen which may bebelow the sensitivity of the test. As with many diagnostictests, results from the Xpert CT/NG assay should beinterpreted in conjunction with other laboratory andclinical data available to the clinician.Xpert CT/NG performance has not been evaluated in patientsless than 14 years of age. The assay should not be used forthe evaluationof suspected sexual abuse or for other medico-legalindications. Additional testing is recommended in anycircumstance when false positive or false negative resultscould lead to adverse medical, social or psychologicalconsequences. Urine (Urine, Random) 07/19/2024 10:34 AM EST 07/19/2024 11:22 AM EST Narrative [facility] - 07/19/2024 2:33 PM EST Urine us Maggy [facility]OME[facility] MICROBIOLOGY - GENERAL ORD ERABLES Final Result [facility] [address] [place] [phone] documented in this encounter Visit Diagnoses Diagnosis Encounter for routine history and physical examination of adult- Primary Healthcare maintenance Abnormal finding on imaging of liver Opioid use disorder Ingrown nail of great toe Encounter for screening mammogram for malignant neoplasm of breast Iron deficiency anemia, unspecified iron deficiency anemia type Screening for colon cancer Special screening for malignant neoplasms, colon Seborrheic dermatitis Unspecified seborrheic dermatitis History of prediabetes Dietary counseling Dietary surveillance and counseling Exercise counseling documented in this encounter Additional Health Concerns Assessment Noted Time PHQ-9 Depression Total Score: 2 07/20/19 9:16 PM EST documented as of this encounter Care Teams Vacuum Cleaner Assembler Relationship Specialty Start Date End Date Maggy Carrera FNP [address] [place] [address] PCP - General Family Medicine 03/24/21 documented as of this encounter
--- OUTSIDE RECORDS SUMMARY | 2024-08-06 13:03 | XMS_ITS | Encounter Summary ---
Author Organization [employer] Address [address] [place] [address] Care Team Providers Care Second Chef Name Role Phone Maggy Carrera PATRICIA Primary Care Provider [phone] Reason for Visit * Reason Comments Med Refill Encounter Details Date Type Department Care Team ([facility] st Contact Info) Description 02/25/2024 Refill [facility] [address] [place], [place] [phone] Yahir Butler MD [address] [place] [address] Vaping nicotine dependence, non-tobacco product Social History [...] Description 08/10/2024 2:00 PM EDT Office Visit [facility] [address] [place] [address] Oksana Quiñones CNM [address] [place] [address] 08/16/2024 10:00 AM EDT Office Visit [facility] [address] [place] [address] Maggy Carrera FNP [address] [place] [address] 09/22/2024 10:45 AM EDT Office Visit [address] [address] Yahir Butler MD [address] [place] [address] documented as of this encounter Visit Diagnoses Diagnosis Vaping nicotine dependence, non-tobacco product documented in this encounter Additional Health Concerns Assessment Noted Time PHQ-9 Depression Total Score: 17 023 3:28 PM EDT documented as of this encounter Care Teams Second Chef Relationship Specialty Start Date End Date Maggy Carrera FNP [address] [place] [phone] PCP - General Family Medicine 03/24/21 documented as of this encounter
--- OUTSIDE RECORDS SUMMARY | 2024-08-06 13:03 | XMS_ITS | Encounter Summary ---
Author Organization [employer] Address [address] [place] [address] Care Team Providers Care Marine Structural Welder Name Role Phone Maggy Carrera Primary Care Provider Encounter Details Date Type Department Care Team (Late st Contact Info) Description 07/18/2024 Telephone [facility] [address] [place] [address] Maggy Carrera FNP [address] [place] [address] Social History Tobacco Use Types Packs/Day Years [...] [facility] [address] [place] [address] Oksana Quiñones CNM [address] [place] [address] 08/16/2024 10:00 AM EDT Office Visit [facility] [address] [place] [phone] Maggy Carrera FNP [address] [place] [address] 09/22/2024 10:45 AM EDT Office Visit [address] [address] Yahir Butler MD [address] [place] [address] documented as of this encounter Visit Diagnoses Not on filedocumented in this encounter Additional Health Concerns Assessment Noted Time PHQ-9 Depression Total Score: 17 023 3:28 PM EDT documented as of this encounter Care Teams Marine Structural Welder Relationship Specialty Start Date End Date Maggy Carrera FNP [address] [place] [address] PCP - General Family Medicine 03/24/21 documented as of this encounter
--- OUTSIDE RECORDS SUMMARY | 2024-08-06 13:03 | XMS_ITS | Clinical Summary ---
Author Organization [employer] Address [address] [place] [address] Care Team Providers Care Hunting Sales Leader Name Role Phone Maggy Carrera Primary Care Provider [phone] Allergies No known active allergies Medications * This document contains information received from the source organization and may not represent a complete record from that organization. ibuprofen 800 MG tablet TAKE 1 TABLET BY MOUTH THREE TIMES DAILY WITH FOOD 022 Active ulipristal (Mague) 30 mg tablet Take one tablet by mouth up to five days after sex. Do not use more than once per menstrual cycle. If repeat dose is needed in same cycle, please contact prescriber. 1 tablet 11 024 Active metFORMIN (Glucophage) 1000 MG tabletIndicati ons:History of prediabetes Take 1 tablet (1,000 mg) by mouth with breakfast and with evening meal. 180 tablet 1 025 2025 Active Amgue 30 MG tabletIndicati ons:Healthcare maintenance TAKE 1 TABLET BY MOUTH UP TO 5 DAYS AFTER UNPROTECTED INTERCOURSE 1 tablet 3 025 Active docusate sodium (Colace) 100 MG capsuleIndicat ions:Opioid use disorder TAKE 1 OR 2 CAPSULES BY MOUTH EVERY NIGHT AT BEDTIME NEEDED CONSTIPATION. TAKE WITH LARGE GLASS OF LIQUIDS 90 capsule 2 025 Active Ketotifen Fumarate 0.035 % solution Administer 1 drop into affected eye(s) if needed in the morning and at bedtime (eye redness or itching). 10 mL 2 025 Active valACYclovir (Valtrex) 500 MG tablet Take 1 tablet (500 mg) by mouth Once per day. May take one tablet twice a day for three days if outbreak, otherwise one tablet daily 90 tablet 2 Active fluocinolone ([place]um-Smoothe /FS Body) 0.01 % external oilIndications :Seborrheic dermatitis Apply before bed on a damp scalp, wrap with head covering. Wash out in the morning. Use 3x per week for treatment, and once every 1-2 weeks for prevention. 120 mL 1 Active buprenorphine- naloxone (Suboxone) 4-1 MG per sublingual filmIndication s:Opioid use disorder Place 2 Film under the tongue Once per day. Do not start before July 28, 2024. 56 Film 1 025 2024 Active buprenorphine- naloxone (Suboxone) 12-3 MG per sublingual filmIndication s:Opioid use disorder Place 1 Film under the tongue Once per day. Do not start before July 28, 2024. 28 Film 1 025 2024 Active FeroSul 325 (65 Fe) MG tablet TAKE 1 TABLET BY MOUTH EVERY DAY 2024 Discontinued(T herapy completed) bacitracin 500 UNIT/GM ointment apply to area of infection BID PRN 2024 Discontinued(T herapy completed) ketotifen (Zaditor) 0.025 % ophthalmic solution 2024 Discontinued(R eorder (will not trigger notification to Pharmacy)) norethindrone (Micronor) 0.35 MG tablet Take 1 tablet by mouth in the morning. 2024 Discontinued(T herapy completed) triamcinolone (Kenalog) 0.1 % cream Mix 80gm tube of Triamcinolone with 16oz jar of CeraVe cream. Apply after shower or bath to skin from the neck down (Not on face) 2024 Discontinued(T herapy completed) Mague 30 MG tablet TAKE 1 TABLET BY MOUTH UP TO 5 DAYS AFTER UNPROTECTED INTERCOURSE 2024 Discontinued(R eorder (will not trigger notification to Pharmacy)) hydrOXYzine pamoate (Vistaril) 25 MG capsuleIndicat ions:Anxiety Take 1-2 tablets by oral route every 8 hours as needed for anxiety 60 capsule 3 023 2024 Discontinued(T herapy completed) docusate sodium (Colace) 100 MG capsule TAKE 1 OR 2 CAPSULES BY MOUTH EVERY NIGHT AT BEDTIME NEEDED CONSTIPATION. TAKE WITH LARGE GLASS OF LIQUIDS 90 capsule 2 023 2024 Discontinued(R eorder (will not trigger notification to Pharmacy)) buPROPion SR (Wellbutrin SR) 150 MG 12 hr tabletIndicati ons:Vaping nicotine dependence, non-tobacco product 1 tablet PO once daily for 3 days, then 1 tab PO BID for 12 weeks. Start around 7 days before quit date. Do not crush, chew, or split. 84 tablet 1 024 2024 Discontinued(T herapy completed) valACYclovir (Valtrex) 500 MG tablet Take 1 tablet (500 mg) by mouth Once per day. May take one tablet twice a day for three days if outbreak, otherwise one tablet daily 36 tablet 2 024 2024 Discontinued(R eorder (will not trigger notification to Pharmacy)) varenicline (Chantix) 1 MG tabletIndicati ons:Tobacco use disorder Take 1 tablet (1 mg) by mouth 2 times daily. Take with full glass of water. 84 tablet 1 024 2024 Discontinued(T herapy completed) buprenorphine- naloxone (Suboxone) 12-3 MG per sublingual filmIndication s:Opioid use disorder Place 1 Film under the tongue Once per day. 28 Film 1 025 2024 Discontinued(R eorder (will not trigger notification to Pharmacy)) buprenorphine- naloxone (Suboxone) 4-1 MG per sublingual filmIndication s:Opioid use disorder Place 2 Film under the tongue Once per day. 56 Film 1 025 2024 Discontinued(R eorder (will not trigger notification to Pharmacy)) SSD 1 % cream APPLY TOPICALLY TO NAILBED DAILY 024 2024 Discontinued(T herapy completed) Active Problems Problem Noted Date Diagnosed Date Healthcare maintenance 07/19/2024 Assessment & Plan (07/20/2024 9:02 PM EST): Breast CA: Ordered 07/19/2024 Pap: July 2023 NILM/HPV neg. Repeat in 3 years d/t no previous results. 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 Incidental finding during ED visit in Feb 2023 - 1.6cm enhancing hepatic segment ?? Rec non-emergent MRI liver w/ and w/o contrast for follow up ?? Order placed 04/17/23 Assessment & Plan (07/20/2024 9:03 PM EST): Unable to attend last appointment. Will rerefer at this time. History of nephrolithiasis 04/16/2023 Overview (04/17/2023): ?? [facility] ED eval Feb 2023: CT demonstrated Obstructing calculi at UVJ of 0.3 causing hydroureter and hydronephrosis Assessment & Plan (04/17/2023 11:03 AM EST): -Resolved shortly after ED visit, pt currently asymptomatic with no urinary or other concerns -Shared decision making to defer urology eval at this time -Education provided re: kidney stones, handout provided end of visit -ED/urgent care precautions reviewed Opioid use disorder 06/07/2022 Assessment & Plan (07/20/2024 8:59 PM EST): - Continues following with [facility] clinic -Well-controlled with Suboxone Iron deficiency anemia 01/04/2022 Assessment & Plan (07/20/2024 8:59 PM EST): - Repeat CBC and iron studies Resolved Problems Problem Noted Date Diagnosed Date Resolved Date Depression, unspecified 09/30/202207/02 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 0 07/20/2024 Drug-induced constipation 06/07/2022 Dry eyes 06/07/2022 04/17/2023 Eczema 06/07/2022 07/20/2024 Neck pain 06/07/2022 04/17/2023 Opioid dependence 10/30/2016 06/07/2022 Encounters Date Type Department Care Team Description 07/28/2024 9:15 AM EST Office Visit [address] [address] Yahir Butler MD Opioid use disorder in remission (Primary Dx); Tobacco use disorder 07/28/2024 Travel 07/21/[address] [address] Joana Ocampo RN Opioid use disorder 07/19/2024 9:15 AM EST Office Visit [address] [address] Maggy Carrera FNP Encounter for routine history and physical examination of adult (Primary Dx); Healthcare maintenance; Abnormal finding on imaging of liver; Opioid use disorder; Ingrown nail of great toe; Encounter for screening mammogram for malignant neoplasm of breast; Iron deficiency anemia, unspecified iron deficiency anemia type; Screening for colon cancer; Seborrheic dermatitis; History of prediabetes; Dietary counseling; Exercise counseling 07/19/[address] [address] Maggy Carrera FNP 07/19/2024 Travel 07/18/2024 Telephone [facility] [address] [place] [address] Mary Avelar MA Chart Prep 07/18/[address] [address] Maggy Carrera FNP 07/03/2024 Patient Outreach [facility] [address] [place] [address] Maggy Carrera FNP Pre-visit Planning (Pre-visit planning - LVM ) 06/13/[address] [place] [address] Maggy Carrera FNP Referral 06/09/2024 Travel 06/02/2024 Refill [facility] [address] [place] [address] Isidra Pisano RN Opioid use disorder 05/29/2024 Telephone [facility] [address] [place] [address] Maggy Carrera FNP Referral 05/26/2024 Refill [facility] [address] [place] [address] Yahir Butler MD Opioid use disorder 05/25/2024 Refill [facility] [address] [place] [address] Isidra Pisano RN Opioid use disorder from [...] oid, preservative free, adsorbed 04/22/2016 Tdap 01/02/2022 Family History Medical History Relation Name Comments Glaucoma Father Prostate cancer Father Diabetes Father's Brother Hypertension Father's Brother gastric cancer Father's Sister Colon cancer Mother Relation Name Status Comments Father Father's Brother Father's Sister Mother Social History Tobacco Use Types Packs/Day Years [...] [facility] [address] [place], [place] [phone] Pj Esteban CNM [address] [place] [address] 08/16/2024 10:00 AM EDT Office Visit [facility] [address] [place] [address] Maggy Carrera, PATRICIA [address] [place], [place] [phone] 09/22/2024 10:45 AM EDT Office Visit [facility] [address] [place] [address] Yahir Butler MD [address] [place], [place] [phone] Health Maintenance Due Date Last Done Comments Mammogram 2024 Influenza Vaccine (#1) 2024 3, 02/27/2022, 02/25/2020, Additional history exists Postponed from 01/30/2024 (Patient Refused) Alcohol/Substance Use Screening 07/19/2025 07/19/2024 SDOH Screening 07/19/2025 07/19/2024 Tobacco Screening 07/19/2025 07/19/2024 COVID-19 Vaccine ( season) 2025 04/28/2021, 08/01/2020, 07/11/2020 Postponed from 01/30/2024 (Patient Refused) Depression Screening 07/20/2025 07/20/2024, 07/20/19 Family Planning (PISQ) 07/20/2025 07/20/2024 Cervical Cancer Screening 08/08/2026 HPV/Cotest 08/08/2026 08/09/2023 Pap Smear 08/08/2026 08/09/2023 DTaP/Tdap/Td Vaccines (4 - Td or Tdap) 01/03/2032 01/02/2022, 04/22/2016, 03/04/2015 Zoster Vaccines (1 of 2) 01/25/2034 RSV Patients and Patients Aged 60 years or older (1 - 1-dose 75+ series) 01/25/2059 Pneumococcal Vaccine: Pediatrics (0 to 5 Years) and At-Risk Patients (6 to 49) Years) Aged Out 04/16/2023, 03/05/2015 No longer eligibl e based on patient's age to complete this topic Hepatitis A Vaccines Completed 12/17/2023, 11/08/19 22 HIV Screening Completed 07/19/2024, 07/29, 09/25/2022, Additional history exists Hepatitis C Screening Completed 07/19/2024 , 09/25/2022, 10/02/2021, Additional history exists HIB Vaccines Aged Out No longer eligi [...] Procedure Name Priority Date/Time Associated Diagnosis Comments POCT KONRAD-14 URINE DRUG SCREEN Routine 07/28/2024 10:14 AM EST Opioid use disorder in remission VITAMIN D,25-OH,TOTAL,IA Routine 07/19/2024 10:34 AM EST [...] routine history and physical examination of adult HPV MRNA E6/E7 REFLEX TO HPV 16, 18/45 Routine 08/09/2023 1:26 PM EDT PAP SMEAR Routine 08/09/2023 1:26 PM EDT Cervical cancer screening from Last 3 Months or Most Recently Relevant to Health Maintenance Results * POCT KONRAD-14 Urine Drug Screen (07/28/2024 10:14 AM EST) THC Negative Cocaine Screen, Urine Negative Opiate Screen, Urine Negative Methamphetamine Screen Urine Negative Amphetamine Screen, Urine Negative Benzodiazepines Screen, Urine Negative Barbiturate Screen, Urine Negative Methadone Screen, Urine Negative Buprenophine Screen, Urine Positive TCA, Urine Negative MDMA Urine Negative ng/mL Oxycodone Screen, Urine Negative Phencyclidine (PCP), Urine Negative Propoxyphene, Urine Negative Fentanyl, Urine Negative Urine Urine specimen obtained by clean catch procedure / Unknown 07/28/2024 10:14 AM EST Yahir Butler MD POINT OF CARE TEST ENTER/EDIT ORDERABLES Final Result * Vitamin D, 25-Hydroxy, Total, Immunoassay (07/19/2024 10:34 AM EST) Vitamin D 25-OH Total 33.9 >30 ng/mL [facility] Comment:Health Based Referen ce Values*< 20 ng/mL Uniwwuaul58-02 ng/mL Insufficient> 30 ng/mL Sufficient*Jared WEEKS. N [...] 07/19/2024 11:10 AM EST us Maggy Carrera DEPARTMENT HEAD LAB BLOOD ORDERABLES Final Res ult [facility] [address] [place] [phone] * TSH with Reflex to Free T4 (07/19/2024 10:34 AM EST) TSH reflex Free T4 0.62 0.32 - 4.0 uIU/mL [facility] Blood 07/19/2024 10:3 4 AM EST 07/19/2024 11:10 AM EST us Maggy Carrera [facility] BLOOD ORDERABLES Final Res ult Performing Organization Address [facility] de Phone Number [facility] [address] [place] [phone] * Hepatitis C Viral RNA, Quantitative, Real-Time PCR (07/19/2024 10:34 AM EST) Hepatitis C Viral Load <15 NOT DETECTED NOT DETECTED IU/mL [facility] HCV Log PCR <1.18 NOT DETECTED NOT DETECTED Log IU/mL [facility] Comment:For additional infor juan pablo, please refer [email or web address].Affinity Edge/faq/ZXE78d9(This link is being provided for informational/educational purposes only.)THIS TEST WAS PERFORMED AT:[employer] [place] [phone] PLATT MD Blood 07/19/2024 10:3 4 AM EST 07/19/2024 11:10 AM EST Maggy Carrera [facility] BLOOD ORDERABLES Final Res ult Performing Organization Address [facility] Phone Number [facility] [address] [place] [phone] * Albumin, Random Urine W/Creatinine (07/19/2024 10:34 AM EST) Creatinine, Urine 51.73 mg/dL [facility] Microalbumin Urine <5.0 mg/L [facility] Microalbum Creatinine Ratio Ur TNP <30 ug/mg cr [facility] Comment:Unable to calculate albumin/creatinine ratio due to lowmicroalbumin or creatinine result. Urine 07/19/2024 10:3 4 AM EST 07/19/2024 11:22 AM EST us Maggy Carrera DEPARTMENT HEAD LAB URINE ORDERABLES Final Res ult [facility] [address] [place], [place] [phone] * (ABNORMAL) CBC auto differential (07/19/2024 10:34 AM EST) White Blood Count 4.2(L) 4.8 - 10.8 X10*3/uL [facility] Red Blood Count 4.40 4.20 - 5.50 X10*6/uL [facility] Hemoglobin 12.8 12.0 - 16.0 g/dl [facility] Hematocrit 38.8 37.0 - 47.0 % [facility] Mean Corpuscular Volume 88.2 80.0 - 98.0 fL [facility] Mean Corpuscular Hemoglobin 29.1 27.0 - 33.0 pg [facility] Mean Corpuscular HGB Conc 33.0 31.0 - 35.0 g/dl [facility] Red Cell Distribution Width 14.4 11.0 - 16.0 % [facility] Platelet Count 286 160 - 400 X10*3/uL [facility] Mean Platelet Volume 9.3(L) 9.4 - 12.3 fL [facility] Neutrophils Percent Auto 40.4(L) 45 - 73 % [facility] Imm Gran Pct Auto 0.2 0.0 - 0.4 % [facility] Lymphocytes Percent Auto 50.2(H) 20 - 40 % [facility] Monocytes Percent Auto 6.4 2 - 11 % [facility] Eosinophils Percent Auto 2.1 0 - 4 % [facility] Basophils Percent Auto 0.7 0 - 2 % [facility] NRBC Pct Auto 0.0 0.0 - 0.2 /100WBC [facility] Neutrophils Absolute Auto 1.7(L) 2.0 - 8.3 x10*3/uL [facility] Imm Gran Abs Auto 0.01 0.00 - 0.03 X10*3/uL [facility] Lymphocytes Absolute Auto 2.1 1.2 - 4.9 X10*3/uL [facility] Monocytes Absolute Auto 0.3 0.1 - 1.2 X10*3/uL [facility] Eosinophils Absolute Auto 0.1 0.0 - 0.4 X10*3/uL [facility] Basophils Absolute Auto 0.0 0.0 - 0.2 X10*3/uL [facility] NRBC Abs Auto 0.000 0.0 - 0.012 X10*3/uL [facility] Blood Venous blood specimen / Unknown 07/19/2024 10:34 AM EST 07/19/2024 11:10 AM EST Maggy PPT [employer] DEPARTMENT HEAD LAB BLOOD ORDERABLES Edited Re sult - Final Performing Organization Address [facility] Co de Phone Number [facility] [address] [place] [phone] * Iron And Total Iron Binding Capacity (07/19/2024 10:34 AM EST) Pathologist [facility] Iron 55 30 - 160 mcg/dL [facility] Total Iron Binding Capacity 352 228 - 428 mcg/dL [facility] Percent Iron Saturation 16 15 - 50 % [facility] Unsaturated Iron Binding 297 ug/dL [facility] Blood Venous blood specimen / Unknown 07/19/2024 10:34 AM EST 07/19/2024 11:10 AM EST Maggy PPT [employer] DEPARTMENT HEAD LAB BLOOD ORDERABLES Final Res ult Performing Organization Address [facility]/ZIP Co de Phone Number [facility] [address] [place] [address] [phone] * Chlamydia/N. Gonorrhoeae RNA, TMA, Urogenitial (07/19/2024 10:34 AM EST) CT PCR NOT DETECTED Not Detect. [facility] Comment:A not detected test result does [...] psychologicalconsequences. NG PCR NOT DETECTED Not Detect. [facility] Comment:A not detected test result does [...] AM EST 07/19/2024 11:22 AM EST Narrative [facility] - 07/19/2024 2:33 PM EST Urine us Maggy Carrera [facility] MICROBIOLOGY - GENERAL ORD ERABLES Final Result [facility] [address] [place] [phone] * RPR (Monitor) with Reflex to??Titer (07/19/2024 10:34 AM EST) RPR (Monitor) w/Refl Titer NON-REACTI VE NON-REACT [place] [facility] Comment:THIS TEST WAS PERFOR MED AT:[employer] [place] [phone] PLATT MD Rapid Plasma Reagin Ab Titer TNP [facility] Blood Venous blood specimen / Unknown 07/19/2024 10:34 AM EST 07/19/2024 11:10 AM EST us Maggy Carrera [facility] BLOOD ORDERABLES Final Res ult [facility] [address] [place] [phone] * HIV-1/2 Antigen and Antibodies, Fourth Generation, with Reflexes (07/19/2024 10:34 AM EST) HIV AB/AG Nonreactive Nonreactive [facility] Comment:HIV-1 p24 Ag and/or HIV-1/HIV-2 Ab not detected.A test result that is nonreactive does not exclude thepossibility of exposure to or infection with HIV-1 and/orHIV-2. Nonreactive results in this assay for individualswith prior exposure to HIV-1 and/or HIV-2 may be due toantigen and antibody levels that are below the limit ofdetection of this assay.The [employer] HIV Ag/Ab Combo assay result andsupplemental assay results should be interpreted inconjunction with the patient's clinical presentation,history and other laboratory results. If the results areinconsistent with clinical evidence, additional testing issuggested to confirm the result. Blood Venous blood specimen / Unknown 07/19/2024 10:34 AM EST 07/19/2024 11:10 AM EST us Maggy Carrera [facility] BLOOD ORDERABLES Final Res ult Performing Organization Address City/[facility]/ZIP Co de Phone Number [facility] [address] [place] [address] [phone] * Hemoglobin A1c (07/19/2024 10:34 AM EST) Hemoglobin A1c 5.5 <6.0 % [facility] Comment:Hemoglobin A1C Refer ence Range Adults: 4.8 - 6.0 % Non diabetic: < 6.0 % Goal: < 7.0 %Additional Action Suggested: > 8.0 %Note: Hemoglobin A1c results are invalid for patients with abnormal amounts of HbF. Blood transfusions may impact the HbA1c concentration in the patient sample. Estimated Average Glucose 111 mg/dL [facility] Comment:eAG = Estimated ave rage glucose which is %A1C expressed asaverage glucose, using the formula of the [id number] Glucose study (ADAG), Diabetes Care, Vol.31,#8,Dec. 2007 Blood Venous blood specimen / Unknown 07/19/2024 10:34 AM EST 07/19/2024 11:10 AM EST Maggy Carrera [facility] BLOOD ORDERABLES Final Res ult Performing Organization Address [facility]/ZIP Co de Phone Number [facility] [address] [place] [phone] * Ferritin (07/19/2024 10:34 AM EST) Pathologist [facility] Ferritin 15 10 - 250 ng/mL [facility] Blood Venous blood specimen / Unknown 07/19/2024 10:34 AM EST 07/19/2024 11:10 AM EST Maggy Carrera [facility] BLOOD ORDERABLES Final Res ult Performing Organization Address [facility] Co de Phone Number [facility] [address] [place] [phone] * (ABNORMAL) Lipid Panel, Standard (07/19/2024 10:34 AM EST) Pathologist [facility] Triglycerides 48 <150 mg/dL [facility] Comment:Desirable Triglyceri de: less than 150 mg/dLBorderline High Triglyceride 150-199 mg/dLHigh Triglyceride: 200-499 mg/dLVery High Triglyceride: greater than or equal to 5OO mg/dL Cholesterol 181 <200 mg/dL [facility] Comment:Desirable Cholestero l: less than 200 mg/dLBorderline High Cholesterol: 200-239 mg/dLHigh Cholesterol: greater than 239 mg/dL LDL Cholesterol Calculated 113(H) <100 mg/dL [facility] Comment:Desirable LDL: less than 100 mg/dLNear Optimal/Above Optimal LDL: 110- 129 mg/dLBorderline High LDL: 130-159 mg/dLHigh LDL: 160-189 mg/dLVery High LDL: greater than or equal to 190 mg/dL HDL Cholesterol 59 >40 mg/dL [facility] Comment:Desirable HDL: grea ter than 40 mg/dL Note: This HDL assay may give artificially low results in patients with liver disease. Blood Venous blood specimen / Unknown 07/19/2024 10:34 AM EST 07/19/2024 11:10 AM EST us Maggy Carrera DEPARTMENT HEAD LAB BLOOD ORDERABLES Final Res ult [facility] [address] [place] [phone] * (ABNORMAL) Comprehensive Metabolic Panel (07/19/2024 10:34 AM EST) Sodium 138 135 - 145 mmol/L [facility] Potassium 4.0 3.3 - 5.1 mmol/L [facility] Chloride 105 96 - 108 mmol/L [facility] Carbon Dioxide 26 22 - 29 mmol/L [facility] Anion Gap 11(L) 12 - 20 [facility] Urea Nitrogen (BUN) 8(L) 9 - 16 mg/dL [facility] Creatinine, Serum 0.69 0.5 - 1.4 mg/dL [facility] Estimated Glomerular Filt Rate >60 [facility] Comment:Chronic Kidney Disea se: Estimated GFR < 60 mL/min/1.79q4Cruxmw Kidney Disease: Estimated GFR < 15 mL/min/1.73m2 Glucose 100 60 - 115 mg/dL [facility] Calcium 9.4 8.4 - 10.2 mg/dL [facility] Bilirubin, Total 0.4 0.0 - 1.0 mg/dL [facility] Aspartate Amino Transferase 33(H) 5 - 31 U/L [facility] Alanine Aminotransferase 34(H) 0 - 31 U/L [facility] Total Protein 8.0 6.5 - 8.0 g/dL [facility] Albumin Level 4.5 3.5 - 5.0 g/dL [facility] Alkaline Phosphatase 35(L) 39 - 117 U/L [facility] Blood Venous blood specimen / Unknown 07/19/2024 10:34 AM EST 07/19/2024 11:10 AM EST Maggy Ashleycesario [facility] BLOOD ORDERABLES Final Res ult [facility] [address] [place] [phone] * HPV mRNA E6/E7 w/Reflex to HPV Genotypes 16, 18/45 (08/09/2023 1:26 PM EDT) HPV nRNA E6/E7 Not Detected Not Detected [facility] Comment:Methodology: Transcr iption-Mediated AmplificationThis assay detects E6/E7 viral messenger RNA (mRNA) from 14high-risk HPV types (16,18,31,33,35,39,45,51,52,56,58,59,66,68).Cervical sources are required for HPV testing.If a vaginal source from a patient who has had atotal hysterectomy with removal of cervix wassubmitted, please contact the testing laboratoryfor alternative testing options.For additional information, please refer [email or web address](This link if provided for information/educational purposes only.)THIS TEST WAS PERFORMED AT:[employer] [facility] [place] [id number] PLATT MD HPV mRNA E6/E7 [facility] HPV 16 RNA [facility] HPV 18/45 RNA [facility] 08/09/2023 1:26 PM EDT 08/10/2023 9:15 AM EDT us Pj Esteban CNM LAB CYTOLOGY ORDERABLES F inal Result [facility] [address] [place] [phone] * Pap Smear (08/09/2023 1:26 PM EDT) Swab Vaginal structure / Unknown 08/09/2023 1:26 PM EDT 08/10/2023 9:15 AM EDT Narrative [facility] - 08/17/2023 9:32 AM EDT ----- ------- Name: Kae Jo ?Age/Sex: 38/F ? : 1985 Unit#: [id number] ?? Attend Dr: PJ ESTEBAN CNM ?Re08/09/23 ?Status: DEP REF ? Location: [facility] ? Disch: ? ----- ------- SPEC : [id number] ? RECD: 08/10/23 ? STATUS: ??SOUT ? REQ NUM: [id number] ? SAY: 08/09/23-1326 ? SUBM DR: PJ ESTEBAN CNM ? ENTERED: ??08/10/23-1300 ?SP TYPE: Pap Smr ?OTHR : ? ORDERED: ??Pap Smear ? Interpretation ?? [...] 66, 68) ?? HPV testing performed by [facility], [place], [place]. ??See reference laboratory ?? portion of the EMR for entire report. ?Clinical Information LMP: Unknown date Previous PAP test: Unknown date/findings ? Material Received ?? ThinPrep-Vaginal/Cervical ----- ------- Signed (signature on file) KEVIN Wright ([facility]) 08/17/23 0932 ? ----- ------- ? END OF REPORT ? us Pj Esteban [facility] CYTOLOGY ORDERABLES F inal Result [facility] [address] [place] [address] [phone] from Last 3 Months or Most Recently Relevant to Health Maintenance Insurance [facility] , [address] [place] [address] Care Teams Hunting Sales Leader Relationship Specialty Start Date End Date Maggy Carrera FNP [address] [place] [address] PCP - General Family Medicine 03/24/21
--- OUTSIDE RECORDS SUMMARY | 2024-08-06 13:04 | XMS_ITS | Encounter Summary ---
Author Organization [employer] Address [address] [facility] [address] [facility] [address] 7[address] [place] [address] Care Team Providers Care Healthcare Network Consultant Name Role Phone Maggy Carrera Primary Care Provider [phone] Encounter Details Date Type Department Care Team ([facility] st Contact Info) Description 07/19/[address] [facility] MEDICINE [address] [place] [address] Maggy Carrera FNP [address] [place] [address] Social History Tobacco Use Types Packs/Day Years [...] encounter Miscellaneous Notes * Telephone Encounter - Shelby Nye - 07/19/2024 11:28 AM EST Called pt to let her know pcp is other pt picked up said she will call insurance and give us a callback . documented in this encounter Plan of Treatment Upcoming Encounters Date Type Department Care Team (Late st Contact Info) Description 08/10/2024 2:00 PM EDT Office Visit [facility] CHC MED & PEDS [address] [place] [address] Oksana Quiñones, WINTERM 230 [place] [address] 08/16/2024 10:00 AM EDT Office Visit [facility] MEDICINE [address] [place] [address] Maggy Carrera FNP 505 [place] [address] 09/22/2024 10:45 AM EDT Office Visit [address] [address] Yahir Butler MD 230 [place] [address] documented as of this encounter Visit Diagnoses Not on filedocumented in this encounter Additional Health Concerns Assessment Noted Time PHQ-9 Depression Total Score: 17 023 3:28 PM EDT documented as of this encounter Care Teams Healthcare Network Consultant Relationship Specialty Start Date End Date Maggy Carrera FNP 230 [place] [address] PCP - General Family Medicine 03/24/21 documented as of this encounter
--- OUTSIDE RECORDS SUMMARY | 2024-08-06 13:04 | XMS_ITS | Encounter Summary ---
Author Organization [employer] Address [address] [facility] [facility] [address] 7t [place] [address] Care Team Providers Care Spooler Rubber Strand Name Role Phone Maggy Carrera PATRICIA Primary Care Provider [phone] Reason for Visit * Reason Onset Date Comments Med Refill 07/21/2024 Encounter Details Date Type Department Care Team (Late st Contact Info) Description 07/21/2024 Refill [facility] MEDICINE [address] [place] [address] Joana Ocampo, RN Opioid use disorder Social History Tobacco Use [...] Upcoming Encounters Date Type Department Care Team ([facility] st Contact Info) Description 08/10/2024 2:00 PM EDT Office Visit [facility] CHC MED & PEDS 505 [place] [address] Oksana Quiñones CNM [address] [place] [address] 08/16/2024 10:00 AM EDT Office Visit [facility] MEDICINE [address] [place] [address] Maggy Carrera FNP 505 [place] [address] 09/22/2024 10:45 AM EDT Office Visit [facility] [address] [place] [address] Yahir Butler MD [address] [place] [address] documented as of this encounter Visit Diagnoses Diagnosis Opioid use disorder documented in this encounter Additional Health Concerns Assessment Noted Time PHQ-9 Depression Total Score: 2 07/20/19 25 9:16 PM EST documented as of this encounter Care Teams Spooler Rubber Strand Relationship Specialty Start Date End Date Maggy Carrera FNP [address] [place] [address] PCP - General Family Medicine 03/24/21 documented as of this encounter
--- OUTSIDE RECORDS SUMMARY | 2024-08-06 13:04 | XMS_ITS | Encounter Summary ---
Author Organization [employer] Address [address] [facility] 7t [place] [address] Care Team Providers Care Novelty Worker Name Role Phone Maggy Carrera PATRICIA Primary Care Provider [phone] Reason for Visit * Reason Comments Med Refill Encounter Details Date Type Department Care Team (Late st Contact Info) Description 03/05/2023 Refill [facility] MEDICINE 230 [place], [place] [phone] Yahir Butler MD 230 [place] [address] Opioid use disorder Social History Tobacco Use [...] 2:00 PM EDT Office Visit [facility] CHC MED & PEDS 505 [place] [address] Oksana Quiñones CNM 230 [place] [address] 08/16/2024 10:00 AM EDT Office Visit [facility] MEDICINE [address] [place] [address] Maggy Carrera FNP 505 [place] [address] 09/22/2024 10:45 AM EDT Office Visit [facility] MEDICINE [address] [place] [address] Yahir Butler MD 230 [place] [address] documented as of this encounter Visit Diagnoses Diagnosis Opioid use disorder documented in this encounter Additional Health Concerns Assessment Noted Time PHQ-9 Depression Total Score: 17 023 3:28 PM EDT documented as of this encounter Care Teams Novelty Worker Relationship Specialty Start Date End Date Maggy Carrera FNP [address] [place] [address] PCP - General Family Medicine 03/24/21 documented as of this encounter
--- OUTSIDE RECORDS SUMMARY | 2024-08-06 13:04 | XMS_ITS | Encounter Summary ---
Author Organization [employer] Address [address] [facility] [address] 7t [place] [address] Care Team Providers Care Assignment Editor Name Role Phone Maggy Carrera PATRICIA Primary Care Provider [phone] Reason for Visit * Reason Comments OBAT Encounter Details Date Type Department Care Team ([facility] st Contact Info) Description 07/28/2024 9:15 AM EST Office Visit [facility] MEDICINE 230 [place], [place] [phone] Yahir Butler MD 230 [place], [place] [phone] Opioid use disorder in remission (Primary Dx); Tobacco use disorder Social History Tobacco Use Types [...] as of this encounter Progress Notes * Yahir Butler MD - 07/28/2024 9:15 AM EST Kae is here today for Opioid Dependence RV. Patient on current Suboxone dose of 20/5 mg on a 8 week schedule. Induction date: 11/19/16. Declines referral to behavioral health. JOCELIN MUNOZ reviewed by provider. LFTs due. Last PCP appt 07/19/24 04/07/24 TELEVISIT Kae was available for OBAT RN TELEVISIT for Opioid Use Disorder. She presents as alert and oriented. Speech clear, coherent and goal directed. Continues to do well on suboxone. Denies illicit substance use, cravings or side effects. 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 Today 07/28/24 F/U for opioid use disorder Utox BUP, THC Doing well. 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 Likes it. Pay raise. Less busy able to sleep some. Excited that she bought a new car, 2023 Mazda. No cigarettes after extra month of Chantix. It decrease craving a lot. Eating well. Gym-weights and treadmill (2 miles). No ADRs Objective Physical Exam Constitutional: Appearance: Normal appearance. Neurological: Mental Status: She is alert and oriented to person, place, and time. Psychiatric: Mood and Affect: Mood normal. Behavior: Behavior normal. Thought Content: Thought content normal. Assessment/Plan Opioid use disorder in remission Utox BUP, THC Doing well. 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 Likes it. Pay raise. Less busy able to sleep some. Excited that she bought a new car, 2023 Mazda. No cigarettes after extra month of Chantix. It decrease craving a lot. Eating well. Gym-weights and treadmill (2 miles). No ADRs --- As above. Doing well. Appears to be in a good place. No substance use or alcohol o/t THC. No ADRs. Reviewed Sublocade. She may be interested. She wants to look up info about it. I told her that she does not need to wait till next visit to start. F/U 8 weeks. Tobacco use disorder Congratulated on cessation. Periodically inquire. Diagnoses and all orders for this visit: Opioid use disorder in remission Tobacco use disorder This information has been disclosed to you from records protected by federal confidentiality rules(42 CFR Part 2). The federal rules prohibit you from making any further disclosure of information in this record that identifies a patient as having or having had a substance use disorder either directly, by reference to publicly available information, or through verification of such identificationby another person unless further disclosure is expressly permitted by the written consent of the individual whose information is being disclosed or as otherwise permitted by (see 2.3.1). The federal rules restrict any use of the information to investigate or prosecute with regard to a crime any patient with a substance use disorder, except as provided at 2.12??(5) and 2.65. documented in this encounter Plan of Treatment Upcoming Encounters Date Type Department Care Team (Late st Contact Info) Description 08/10/2024 2:00 PM EDT Office Visit [facility] CHC MED & PEDS 505 [place] [address] Oksana Quiñones, WINTERM 230 [place] [address] 08/16/2024 10:00 AM EDT Office Visit [facility] MEDICINE 230 [place] [address] Maggy Carrera, DEALERSHIP GENERAL MANAGER 505 [place] [address] 09/22/2024 10:45 AM EDT Office Visit [facility] MEDICINE [address] [place] [address] Yahir Butler MD 230 [place] [address] documented as of this encounter Procedures Procedure Name Priority Date/Time Associated Diagnosis Comments POCT KONRAD-14 URINE DRUG SCREEN Routine 07/28/2024 10:14 AM EST Opioid use disorder in remission documented in this encounter Results * POCT KONRAD-14 Urine Drug Screen [...] OF CARE TEST ENTER/EDIT ORDERABLES Final Result documented in this encounter Visit Diagnoses Diagnosis Opioid use disorder in remission- Primary Tobacco use disorder documented in this encounter Additional Health Concerns Assessment Noted Time PHQ-9 Depression Total Score: 2 07/20/19 9:16 PM EST documented as of this encounter Care Teams Assignment Editor Relationship Specialty Start Date End Date Maggy Carrera FNP [address] [place] [address] PCP - General Family Medicine 03/24/21 documented as of this encounter
--- OUTSIDE RECORDS SUMMARY | 2024-08-06 13:04 | XMS_ITS | Clinical Summary ---
Author Organization [address] [facility] Address [address] [place] [address] Phone Care Team Providers Care Fishing Tool Technician Oil [employer] Name Role Phone Physician, Pcp Unknown Primary Care Provider Yovana vailable Immunizations Name Administration Dates Next Due Pfizer [...] on patient's age to complete this topic Insurance [facility] Care Teams Fishing Tool Technician Oil [employer] Relationship Specialty Start Date End Date Physician, Pcp Unknown PCP - General 08/04/24
--- OUTSIDE RECORDS SUMMARY | 2024-08-06 13:04 | XMS_ITS | Encounter Summary ---
Author Organization [employer] Address [address] [facility] [address] [facility] [address] 7[address] [place] [address] Care Team Providers Care Chemical Production Machine Operator Name Role Phone Maggy Carrera PATRICIA Primary Care Provider [phone] Encounter Details Date Type Department Care Team (Late st Contact Info) Description 10/07/2023 Orders Only [facility] MEDICINE [address] [place] [address] Isidra Pisano RN Opioid type dependence, continuous [...] Description 08/10/2024 2:00 PM EDT Office Visit [facility] CHC MED & PEDS [address] [place] [address] Oksana Quiñones CNM 230 [place] [address] 08/16/2024 10:00 AM EDT Office Visit [facility] MEDICINE [address] [place] [address] Maggy Carrera FNP 505 [place] [address] 09/22/2024 10:45 AM EDT Office Visit [address] [address] Yahir Butler MD 230 [place] [address] Scheduled Orders Name Type Priority Associated Diagnoses [...] documented as of this encounter Care Teams Chemical Production Machine Operator Relationship Specialty Start Date End Date Maggy Carrera FNP 230 [place] [address] PCP - General Family Medicine 03/24/21 documented as of this encounter
--- OUTSIDE RECORDS SUMMARY | 2024-08-06 13:04 | XMS_ITS | Encounter Summary ---
Author Organization [employer] Address [address] 7[address] [place] [address] Care Team Providers Care Account Liaison Name Role Phone Maggy Carrera PATRICIA Primary Care Provider [phone] Reason for Visit * Reason Comments Med Refill Encounter Details Date Type Department Care Team ([facility] st Contact Info) Description 04/30/2023 Refill [facility] MEDICINE [address] [place], [place] [phone] Yahir Butler MD 230 [place] [address] Opioid use disorder Social History Tobacco Use [...] Description 08/10/2024 2:00 PM EDT Office Visit [facility] CHC MED & PEDS 505 [place] [address] Oksana Quiñones CNM 230 [place] [address] 08/16/2024 10:00 AM EDT Office Visit [facility] MEDICINE 230 [place] [address] Maggy Carrera FNP 505 [place] [address] 09/22/2024 10:45 AM EDT Office Visit [facility] MEDICINE [address] [place] [address] Yahir Butler MD 230 [place] [address] documented as of this encounter Visit Diagnoses Diagnosis Opioid use disorder documented in this encounter Additional Health Concerns Assessment Noted Time PHQ-9 Depression Total Score: 17 023 3:28 PM EDT documented as of this encounter Care Teams Account Liaison Relationship Specialty Start Date End Date Maggy Carrera FNP [address] [place] [address] PCP - General Family Medicine 03/24/21 documented as of this encounter
--- OUTSIDE RECORDS SUMMARY | 2024-08-06 13:04 | XMS_ITS | Encounter Summary ---
Author Organization [employer] Address [address] [facility] [facility] [facility] [address] [place] [address] Care Team Providers Care Gas Dispenser Name Role Phone Maggy Carrera PATRICIA Primary Care Provider [phone] Reason for Visit * Reason Comments Med Refill Encounter Details Date Type Department Care Team ([facility] st Contact Info) Description 10/15/2023 Refill [facility] MEDICINE 230 [place], [place] [phone] Yahir Butler MD 230 [place] [address] Opioid use disorder Social History Tobacco Use [...] Description 08/10/2024 2:00 PM EDT Office Visit [facility] CHC MED & PEDS 505 [place] [address] Oksana Quiñones CNM 230 [place] [address] 08/16/2024 10:00 AM EDT Office Visit [facility] MEDICINE 230 [place] [address] Maggy Carrera FNP 505 [place] [address] 09/22/2024 10:45 AM EDT Office Visit [facility] MEDICINE [address] [place] [address] Yahir Butler MD 230 [place] [address] documented as of this encounter Visit Diagnoses Diagnosis Opioid use disorder documented in this encounter Additional Health Concerns Assessment Noted Time PHQ-9 Depression Total Score: 17 023 3:28 PM EDT documented as of this encounter Care Teams Gas Dispenser Relationship Specialty Start Date End Date Maggy Carrera FNP [address] [place] [address] PCP - General Family Medicine 03/24/21 documented as of this encounter
--- OUTSIDE RECORDS SUMMARY | 2024-08-06 13:04 | XMS_ITS | Encounter Summary ---
Author Organization [employer] Address [address] [facility] [facility] [address] [facility] [address] [place] [address] Care Team Providers Care Manager Simulation Name Role Phone Maggy Carrera PATRICIA Primary Care Provider [phone] Encounter Details Date Type Department Care Team (Latest Contact Info) Description 07/28/2024 Travel Social History Tobacco Use Types Packs/Day [...] Description 08/10/2024 2:00 PM EDT Office Visit [facility] CHC MED & PEDS 505 [place] [address] Oksana Quiñones CNM 230 [place] [address] 08/16/2024 10:00 AM EDT Office Visit [facility] MEDICINE [address] [place] [address] Maggy Carrera FNP 505 [place] [address] 09/22/2024 10:45 AM EDT Office Visit [address] [address] Yahir Butler MD [address] [place] [address] documented as of this encounter Visit Diagnoses Not on filedocumented in this encounter Additional Health Concerns Assessment Noted Time PHQ-9 Depression Total Score: 2 07/20/19 25 9:16 PM EST documented as of this encounter Care Teams Manager Simulation Relationship Specialty Start Date End Date Maggy Carrera FNP [address] [place] [address] PCP - General Family Medicine 03/24/21 documented as of this encounter
--- OUTSIDE RECORDS SUMMARY | 2024-08-06 13:04 | XMS_ITS | Encounter Summary ---
Author Organization [employer] Address [address] [facility] [address] [place] [address] Care Team Providers Care [employer] Solutions Workflow Consultant Name Role Phone Maggy Carrera PATRICIA Primary Care Provider [phone] Reason for Visit * Reason Onset Date Comments Appointment Request 10/09/2022 Encounter Details Date Type Department Care Team ([facility] st Contact Info) Description 10/09/2022 Telephone [facility] MEDICINE 230 [place] [address] Kamilah Pedersen, VALERIA Appointment Request Social History [...] Miscellaneous Notes * Telephone Encounter - Monica Silva - 10/09/2022 12:36 PM EDT Tc from pt returning call to schedule a follow up appt with PCP per [facility] nurse , resume writer attempted toschedule however zero availability. Please contact at [phone] documented in this encounter Plan of Treatment Upcoming Encounters Date Type Department Care Team (Late st Contact Info) Description 08/10/2024 2:00 PM EDT Office Visit [facility] CHC MED & PEDS 505 [place] [address] Oksana Quiñones CNM 230 [place] [address] 08/16/2024 10:00 AM EDT Office Visit [facility] MEDICINE [address] [place] [address] Maggy Carrera FNP 505 [place] [address] 09/22/2024 10:45 AM EDT Office Visit [facility] 230 [place] [address] Yahir Butler MD 230 [place] [address] documented as of this encounter Visit Diagnoses Not on filedocumented in this encounter Additional Health Concerns Assessment Noted Time PHQ-9 Depression Total Score: 21 023 3:34 PM EDT documented as of this encounter Care Teams [employer] Solutions Workflow Consultant Relationship Specialty Start Date End Date Maggy Carrera FNP 230 [place] [address] PCP - General Family Medicine 03/24/21 documented as of this encounter
[2024-08-06] MEDS: gadobutroL 10 ML VIAL IVPUSH (14:00)
== END 2024-08-06 13:01 | disposition home or self-care (01) ==
LOC: HO.MRI 13:00
PROVIDERS: Visit Provider Registered Nurse
DX: R93.2 Abnormal findings on diagnostic imaging of liver and biliary tract (principal)
CPT/HCPCS: 74183; A9585

== ENCOUNTER → 2024-08-06 13:15 | Outpatient (BNV) | payer OTHER, SELFPAY | PROVIDERS: Visit Provider Radiology Diagnostic Radiology | DX: D25.9 Leiomyoma of uterus, unspecified (principal) | CPT/HCPCS: 74183 ==

== ENCOUNTER → 2024-09-25 14:15 | Outpatient (BNV) | payer OTHER, SELFPAY | PROVIDERS: Visit Provider Internal Medicine | DX: Z12.31 Encounter for screening mammogram for malignant neoplasm of breast (principal) | CPT/HCPCS: 77063; 77067 ==

== ENCOUNTER 2024-09-25 14:19 | Outpatient (REF) | payer OTHER, SELFPAY ==
--- OUTSIDE RECORDS SUMMARY | 2024-09-25 17:06 | XMS_ITS | Clinical Summary ---
Author Organization [facility] Address [address] [place] [address] Care Team Providers Care Marble Carver Name Role Phone Maggy Carrera Primary Care Provider [phone] Allergies No known active allergies Medications * This document contains information received from the source organization and may not represent a complete record from that organization. ulipristal (Mague) 30 mg tablet Take one tablet by mouth up to five days after sex. Do not use more than once per menstrual cycle. If repeat dose is needed in same cycle, please contact prescriber. 1 tablet 11 08/09/19 24 Active metFORMIN (Glucophage) 1000 MG tabletIndicati ons:History of prediabetes Take 1 tablet (1,000 mg) by mouth with breakfast and with evening meal. 180 tablet 1 07/19/19 25 026 Active Mague 30 MG tabletIndicati ons:Healthcare maintenance TAKE 1 TABLET BY MOUTH UP TO 5 DAYS AFTER UNPROTECTED INTERCOURSE 1 tablet 3 07/19/19 25 Active docusate sodium (Colace) 100 MG capsuleIndicat [...] 90 tablet 2 07/19/19 25 Active fluocinolone ([place]-Smoothe /FS Body) 0.01 % external oilIndications :Seborrheic dermatitis Apply before bed on a damp scalp, wrap with head covering. Wash out in the morning. Use 3x per week for treatment, and once every 1-2 weeks for prevention. 120 mL 1 07/19/19 25 Active naproxen (Naprosyn) 250 MG tablet 1 tablet twice daily with food x 7 days during menses 28 tablet 08/16/19 25 Active buprenorphine- naloxone (Suboxone) 4-1 MG per sublingual filmIndication s:Opioid use disorder Place 2 Film under the tongue Once per day. Do not start before September 22, 2024. 56 Film 1 09/23/19 25 025 Active buprenorphine- naloxone (Suboxone) 12-3 MG per sublingual filmIndication s:Opioid use disorder Place 1 Film under the tongue Once per day. Do not start before September 22, 2024. 56 Film 09/23/19 25 025 Active buprenorphine- naloxone (Suboxone) 4-1 MG per sublingual filmIndication s:Opioid use disorder Place 2 Film under the tongue Once per day. Do not start before July 28, 2024. 56 Film 1 07/28/19 25 025 Discontinued(R eorder (will not trigger notification to Pharmacy)) buprenorphine- naloxone (Suboxone) 12-3 MG per sublingual filmIndication s:Opioid use disorder Place 1 Film under the tongue Once per day. Do not start before July 28, 2024. 28 Film 1 07/28/19 25 025 Discontinued(R eorder (will not trigger notification to Pharmacy)) Active Problems Problem Noted Date Diagnosed Date Healthcare maintenance 07/19/2024 Assessment & Plan (07/20/2024 9:02 PM EST): Breast CA: Ordered 07/19/2024 Pap: July 2023 NILM/HPV neg. Repeat in 3 years d/t no previous results. Colon CA: Referred for eval Jul 2024 (39Y/O) due to first-degree relative with colon cancer OPH: referral to [facility] placed 07/19/2024 Hep B surface [...] History of nephrolithiasis 04/16/2023 Overview (04/17/2023): ?? 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 0 07/20/2024 Drug-induced constipation 06/07/2022 Dry eyes 06/07/2022 04/17/2023 Eczema 06/07/2022 07/20/2024 Neck pain 06/07/2022 04/17/2023 Opioid dependence 10/30/2016 06/07/2022 Encounters Date Type Department Care Team Description 09/22/2024 10:30 AM EDT Clinical Support [facility] [address] [place] [phone] Joana Ocampo, VALERIA Opioid use disorder in remission (Primary Dx); Tobacco use disorder 09/22/2024 Travel 09/19/2024 Refill [facility] [address] [place] [phone] Yahir Butler MD Opioid use disorder 09/19/[address] [address] Joana Ocampo, VALERIA Opioid use disorder 08/28/[address] [address] Pj Esteban CNM 08/24/2024 Orders Only [facility] [address] [place] [address] Maggy Carrera FNP Leukopenia, unspecified type (Primary Dx); Elevated LFTs 08/15/2024 3:45 PM EDT Office Visit [address] [address] Pj Esteban CNM Visit for pelvic exam (Primary Dx); Fibroid; Menorrhagia with regular cycle; Stress incontinence 08/15/2024 Travel 08/10/2024 Travel 08/10/2024 Telephone [facility] [address] [place] [address] Maggy Carrera FNP Chart Prep 08/09/2024 Telephone [facility] [address] [place] [address] Maggy Carrera FNP Results 08/06/2024 Orders Only [facility] [address] [place] [address] Maggy Carrera, [employer] 07/28/2024 9:15 AM EST Office Visit [address] [address] Yahir Butler MD Opioid use disorder in remission (Primary Dx); Tobacco use disorder 07/28/2024 Travel 07/21/[address] [address] Joana Ocampo RN Opioid use disorder 07/19/2024 9:15 AM EST Office Visit [facility] [address] [place] [phone] Maggy Carrera FNP Encounter for routine history and physical examination of adult (Primary Dx); Healthcare maintenance; Abnormal finding on imaging of liver; Opioid use disorder; Ingrown nail of great toe; Encounter for screening mammogram for malignant neoplasm of breast; Iron deficiency anemia, unspecified iron deficiency anemia type; Screening for colon cancer; Seborrheic dermatitis; History of prediabetes; Dietary counseling; Exercise counseling 07/19/[address] [address] Maggy Carrera FNP 07/19/2024 Travel 07/18/2024 Telephone [facility] [address] [place] [address] Mary Avelar MA Chart Prep 07/18/2024 Telephone [facility] [address] [place] [phone] Maggy Carrera FNP 07/03/2024 Patient Outreach [facility] [address] [place] [address] Maggy Carrera FNP Pre-visit Planning (Pre-visit planning - LVM ) from Last 3 Months Immunizations Name Administration [...] Sign Reading Time Taken Comments Blood Pressure 122/70 08/15/2024 4:08 PM EDT Pulse 62 08/15/2024 4:08 PM EDT Temperature 36.3 ??C (97.3 ??F) 08/15/2024 4:08 PM ED T Respiratory Rate 16 08/15/2024 4:08 PM EDT Oxygen Saturation 99% 08/15/2024 4:08 PM EDT Inhaled Oxygen Concentration - - Weight 85.5 kg (188 lb 9.6 oz) 08/15/2024 4:08 P M EDT Height 160 cm (5' 3 ) 08/15/2024 4:08 PM EDT Body Mass Index 33.41 08/15/2024 4:08 PM EDT Plan of Treatment Upcoming Encounters Date Type Department Care Team (Late st Contact Info) Description 10/04/2024 11:15 AM EDT Office Visit [facility] [address] [place] [phone] Maggy Carrera, [employer] [address] [place] [address] 11/17/2024 10:30 AM EDT Clinical Support [facility] [address] [place] [address] Joana Ocampo, VALERIA 11/27/2024 1:45 PM EDT Office Visit [facility] [address] [place], [place] [phone] Adina García, OD [address] [place] [address] Health Maintenance Due Date Last Done Comments Mammogram 2024 Influenza Vaccine (#1) 2024 3, 02/27/2022, 02/25/2020, Additional history exists Postponed from 01/30/2024 (Patient Refused) Alcohol/Substance Use Screening 07/19/2025 07/19/2024 SDOH Screening 07/19/2025 07/19/2024 COVID-19 Vaccine ( season) 2025 04/28/2021, 08/01/2020, 07/11/2020 Postponed from 01/30/2024 (Patient Refused) Depression Screening 07/20/2025 07/20/2024, 07/20/19 Family Planning (PISQ) 08/15/2025 08/15/2024 Tobacco Screening 08/15/2025 08/15/2024 Cervical Cancer Screening 08/08/2026 HPV/Cotest 08/08/2026 08/09/2023 [...] this topic Hepatitis A Vaccines Aged Out 12/17/2023, 11/08/19 22 No longer eligible based on patient's age to complete this topic HIV Screening Completed 07/19/2024, 07/29, 09/25/2022, Additional [...] on patient's age to complete this topic Goals Goal Patient Goal Type Associated Problems Recent Progress Patient-Stated? Author Decrease the frequency of unwanted emotions so that daily functioning is improved General No Joana Ocampo, tentering machine feeder Procedure Name Priority Date/Time Associated Diagnosis Comments POCT KONRAD-14 URINE DRUG SCREEN Routine 09/22/2024 9:43 AM EDT Opioid use disorder in remission MR ABDOMEN W AND WO CONTRAST Routine 08/06/2024 1:15 PM EDT POCT KONRAD-14 URINE DRUG SCREEN Routine 07/28/2024 [...] Results * POCT KONRAD-14 Urine Drug Screen (09/22/2024 9:43 AM EDT) Only the most recent of2 resultswithin the time period is included. THC Positive Cocaine Screen, Urine Negative Opiate Screen, Urine Negative Methamphetamine Screen Urine Negative Amphetamine Screen, Urine Negative Benzodiazepines Screen, Urine Negative Barbiturate Screen, Urine Negative Methadone Screen, Urine Negative Buprenophine Screen, Urine Positive TCA, Urine Negative MDMA Urine Negative ng/mL Oxycodone Screen, Urine Negative Phencyclidine (PCP), Urine Negative Fentanyl, Urine Negative Urine Urine specimen obtained by clean catch procedure / Unknown 09/22/2024 9:43 AM EDT us Yahir Butler MD POINT OF CARE TEST ENTER/EDIT ORDERABLES Final Result * MR Abdomen w/ and w/o Contrast (08/06/2024 1:15 PM EDT) Anatomical Region Laterality Modality Abdomen Magnetic Resonan ce 08/06/2024 1:15 PM EDT Narrative 08/08/2024 7:13 AM EDT ? [facility] ?[address] ?[place] [address] ? Magnetic Resonance Report ? Signed ? Patient: Daily Dae,Kae D ?MR#: ?? [id number] ? : 1985 ?Acct:[id number] ? Age/Sex: 39 / F ?ADM Date: 03/09/25 ? Loc: HO.MRI ? Attending Dr: Maggy GOMEZ ? Ordering Physician: Maggy Carrera ?? Date of Service: 08/06/24 ?? Procedure(s): MR abdomen wo/w con ?? Accession Number(s): [id number] ? cc: Maggy Carrera; Physician,Unknown ? EXAMINATION: ??MRI Abdomen without and with contrast ? HISTORY: Abnormal findings on CT ??1.5 years ago. ? COMPARISON: ??There are no prior studies at this institution for ?? comparison. ? TECHNIQUE: Axial in and out of phase T1-weighted gradient echo, axial ?? diffusion weighted, and axial and coronal HASTE T2 with fat saturation ?? images were obtained through the abdomen. 3D MRCP Reconstructed and ?? thin and thick slab images of the biliary tree were obtained. ?? Subsequently, fat suppressed axial and coronal T1-weighted images were ?? obtained after the intravenous administration of 8.5 mL Gadavist. ? FINDINGS: ??There is no significant loss of signal intensity within the ?? liver on opposed phase imaging to suggest steatosis. No enhancing liver ?? mass is identified. There is no intra or extrahepatic biliary ductal ?? dilatation. The hepatic and portal veins are patent. The gallbladder is ?? unremarkable. No intraluminal filling defects are identified within the ?? common bile duct to suggest choledocholithiasis. ? The spleen, pancreas, adrenals, and kidneys are unremarkable. No ?? retroperitoneal lymphadenopathy or ascites is identified in the upper ?? abdomen. The stomach is distended with fluid. The visualized bones ?? demonstrate normal signal intensity. Incidental note is made of a 2.5 ?? cm uterine fibroid. ? MR/MR abdomen wo/w con ?? IMPRESSION: ? 1. No liver abnormality is identified. ? 2. 2.5 cm uterine fibroid. ? Electronically signed by: ??Ad Moreno MD ??08/08/2024 07:10 AM EDT ?? RP ? Dictated By: ?Ad Moreno MD ? Signed By: ?<Electronically signed by Ad Moreno MD in OV> ?08/08/24 0710 ? DD/ 1315 ? TD/TT: 08/06/24 1404 ? Change Consultant: ? Procedure Note Donotuseinterpreter, Image - 08/08/2024 [place] [address] Magnetic Resonance Report Signed Patient: Kae Jo DMR#: [id number] : 1985Acct:[id number] Age/Sex: 39 / FADM Date: 08/06/24 Loc: HO.MRI Attending Dr: Maggy GOMEZ Ordering Physician: Maggy Carrera Date of Service: 08/06/24 Procedure(s): MR abdomen wo/w con Accession Number(s): [id number] cc: Maggy Carrera; Physician,Unknown EXAMINATION: MRI Abdomen without and with contrast HISTORY: Abnormal findings on CT 1.5 years ago. COMPARISON: There are no prior studies at this institution for comparison. TECHNIQUE: Axial in and out of phase T1-weighted gradient echo, axial diffusion weighted, and axial and coronal HASTE T2 with fat saturation images were obtained through the abdomen. 3D MRCP Reconstructed and thin and thick slab images of the biliary tree were obtained. Subsequently, fat suppressed axial and coronal T1-weighted images were obtained after the intravenous administration of 8.5 mL Gadavist. FINDINGS: There is no significant loss of signal intensity within the liver on opposed phase imaging to suggest steatosis. No enhancing liver mass is identified. There is no intra or extrahepatic biliary ductal dilatation. The hepatic and portal veins are patent. The gallbladder is unremarkable. No intraluminal filling defects are identified within the common bile duct to suggest choledocholithiasis. The spleen, pancreas, adrenals, and kidneys are unremarkable. No retroperitoneal lymphadenopathy or ascites is identified in the upper abdomen. The stomach is distended with fluid. The visualized bones demonstrate normal signal intensity. Incidental note is made of a 2.5 cm uterine fibroid. MR/MR abdomen wo/w con IMPRESSION: 1. No liver abnormality is identified. 2. 2.5 cm uterine fibroid. Electronically signed by: Ad Moreno MD 08/08/2024 07:10 AM EDT Dictated By: Ad Moreno MD Signed By: <Electronically signed by Ad Moreno MD in OV> 08/08/24 0710 DD/ 1315 TD/TT: 08/06/24 1404 Change Consultant: Maggy GOMEZ IMG MRI PROCEDURES Final Resul t * Vitamin D, 25-Hydroxy, Total, Immunoassay (07/19/2024 10:34 AM EST) Vitamin D 25-OH Total 33.9 >30 ng/mL [facility] Comment:Health Based Referen ce Values*< 20 ng/mL [id number] ng/mL Insufficient> 30 ng/mL Sufficient*Jared WEEKS. N [...] EST 07/19/2024 11:10 AM EST Maggy Carrera [facility] BLOOD ORDERABLES Final Res ult [facility] [address] [place] [address] [phone] * TSH with Reflex to Free T4 (07/19/2024 10:34 AM EST) TSH reflex Free T4 0.62 0.32 - 4.0 uIU/mL [facility] Blood 07/19/2024 10:3 4 AM EST 07/19/2024 11:10 AM EST Maggy Carrera [facility] BLOOD ORDERABLES Final Res ult Performing Organization Address [facility] Co de Phone Number [facility] [address] [place] [phone] * Hepatitis C Viral RNA, Quantitative, Real-Time PCR (07/19/2024 10:34 AM EST) Hepatitis C Viral Load <15 NOT DETECTED NOT DETECTED IU/mL [facility] HCV Log PCR <1.18 NOT DETECTED NOT DETECTED Log IU/mL [facility] Comment:For additional infor juan pablo, please refer tohttp://education.[employer]/faq/GLJ07t7(This link is being provided for informational/educational purposes only.)THIS TEST WAS PERFORMED AT:[employer] [place] [phone] PLATT MD Blood 07/19/2024 10:3 4 AM EST 07/19/2024 11:10 AM EST Maggy Carrera [facility] BLOOD ORDERABLES Final Res ult Performing Organization Address [facility] de Phone Number [facility] [address] [place] [phone] * Albumin, Random Urine W/Creatinine (07/19/2024 10:34 AM EST) Creatinine, Urine 51.73 mg/dL [facility] Microalbumin Urine <5.0 mg/L [facility] Microalbum Creatinine Ratio Ur TNP <30 ug/mg cr [facility] Comment:Unable to calculate albumin/creatinine ratio due to lowmicroalbumin or creatinine result. Urine 07/19/2024 10:3 4 AM EST 07/19/2024 11:22 AM EST us Maggy Carrera [employer] [facility] URINE ORDERABLES Final Res ult [facility] [address] [place], [place] [phone] * (ABNORMAL) CBC auto differential (07/19/2024 10:34 AM EST) White Blood Count 4.2(L) 4.8 - 10.8 X10*3/uL [facility] Red Blood Count 4.40 4.20 - 5.50 X10*6/uL [facility] Hemoglobin 12.8 12.0 - 16.0 g/dl [facility] Hematocrit 38.8 37.0 - 47.0 % [facility] Mean Corpuscular Volume 88.2 80.0 - 98.0 fL [facility] Mean Corpuscular Hemoglobin 29.1 27.0 - 33.0 pg [facility] Mean Corpuscular HGB Conc 33.0 31.0 - 35.0 g/dl [facility] Red Cell Distribution Width 14.4 11.0 - 16.0 % [facility] Platelet Count 286 160 - 400 X10*3/uL [facility] Mean Platelet Volume 9.3(L) 9.4 - 12.3 fL [facility] Neutrophils Percent Auto 40.4(L) 45 - 73 % [facility] Imm Gran Pct Auto 0.2 0.0 - 0.4 % [facility] Lymphocytes Percent Auto 50.2(H) 20 - 40 % [facility] Monocytes Percent Auto 6.4 2 - 11 % [facility] Eosinophils Percent Auto 2.1 0 - 4 % [facility] Basophils Percent Auto 0.7 0 - 2 % [facility] NRBC Pct Auto 0.0 0.0 - 0.2 /100WBC [facility] Neutrophils Absolute Auto 1.7(L) 2.0 - 8.3 x10*3/uL [facility] Imm Gran Abs Auto 0.01 0.00 - 0.03 X10*3/uL [facility] Lymphocytes Absolute Auto 2.1 1.2 - 4.9 X10*3/uL [facility] Monocytes Absolute Auto 0.3 0.1 - 1.2 X10*3/uL [facility] Eosinophils Absolute Auto 0.1 0.0 - 0.4 X10*3/uL [facility] Basophils Absolute Auto 0.0 0.0 - 0.2 X10*3/uL [facility] NRBC Abs Auto 0.000 0.0 - 0.012 X10*3/uL [facility] Blood Venous blood specimen / Unknown 07/19/2024 10:34 AM EST 07/19/2024 11:10 AM EST Maggy [employer] LAB BLOOD ORDERABLES Edited Re sult - Final Performing Organization Address [facility]/ZIP Co de Phone Number [facility] [address] [place] [phone] * Iron And Total Iron Binding Capacity (07/19/2024 10:34 AM EST) Iron 55 30 - 160 mcg/dL [facility] Total Iron Binding Capacity 352 228 - 428 mcg/dL [facility] Percent Iron Saturation 16 15 - 50 % [facility] Unsaturated Iron Binding 297 ug/dL [facility] Blood Venous blood specimen / Unknown 07/19/2024 10:34 AM EST 07/19/2024 11:10 AM EST Maggy [employer] LAB BLOOD ORDERABLES Final Res ult Performing Organization Address [facility] Co de Phone Number [facility] [address] [place] [phone] * Chlamydia/N. Gonorrhoeae RNA, TMA, Urogenitial (07/19/2024 10:34 AM EST) CT PCR NOT DETECTED Not Detect. [facility] Comment:A not detected test result [...] psychologicalconsequences. NG PCR NOT DETECTED Not Detect. [facility] Comment:A not detected test result [...] AM EST 07/19/2024 11:22 AM EST Narrative [facility] - 07/19/2024 2:33 PM EST Urine us Maggy Carrera [employer] LAB MICROBIOLOGY - GENERAL ORD ERABLES Final Result [facility] [address] [place] [phone] * RPR (Monitor) with Reflex to??Titer (07/19/2024 10:34 AM EST) RPR (Monitor) w/Refl Titer NON-REACTI VE NON-REACT [place] [facility] Comment:THIS TEST WAS PERFOR MED AT:[employer] [place] [phone] PLATT MD Rapid Plasma Reagin Ab Titer TNP [facility] Blood Venous blood specimen / Unknown 07/19/2024 10:34 AM EST 07/19/2024 11:10 AM EST Maggy Carrera [facility] BLOOD ORDERABLES Final Res ult Performing Organization Address City/[facility]/ZIP Co de Phone Number [facility] [address] [place] [phone] * HIV-1/2 Antigen and Antibodies, Fourth Generation, with Reflexes (07/19/2024 10:34 AM EST) HIV AB/AG Nonreactive Nonreactive [facility] Comment:HIV-1 p24 Ag and/or HIV-1/HIV-2 Ab not detected.A test result that is nonreactive does not exclude thepossibility of exposure to or infection with HIV-1 and/orHIV-2. Nonreactive results in this assay for individualswith prior exposure to HIV-1 and/or HIV-2 may be due toantigen and antibody levels that are below the limit ofdetection of this assay.The [employer] HIV Ag/Ab Combo assay result andsupplemental assay results should be interpreted inconjunction with the patient's clinical presentation,history and other laboratory results. If the results areinconsistent with clinical evidence, additional testing issuggested to confirm the result. Blood Venous blood specimen / Unknown 07/19/2024 10:34 AM EST 07/19/2024 11:10 AM EST Maggy Carrera [facility] BLOOD ORDERABLES Final Res ult Performing Organization Address [facility]/ZIP Co de Phone Number [facility] [address] [place] [phone] * Hemoglobin A1c (07/19/2024 10:34 AM EST) Hemoglobin A1c 5.5 <6.0 % [facility] Comment:Hemoglobin A1C Refer ence Range Adults: 4.8 - 6.0 % Non diabetic: < 6.0 % Goal: < 7.0 %Additional Action Suggested: > 8.0 %Note: Hemoglobin A1c results are invalid for patients with abnormal amounts of HbF. Blood transfusions may impact the HbA1c concentration in the patient sample. Estimated Average Glucose 111 mg/dL [facility] Comment:eAG = Estimated ave rage glucose which is %A1C expressed asaverage glucose, using the formula of the I5W-XyikffoYalxrsf Glucose study (ADAG), Diabetes Care, Vol.31,#8,2007 Blood Venous blood specimen / Unknown 07/19/2024 10:34 AM EST 07/19/2024 11:10 AM EST Maggy Carrera [facility] BLOOD ORDERABLES Final Res ult Performing Organization Address [facility]/ZIP Co de Phone Number [facility] [address] [place] [phone] * Ferritin (07/19/2024 10:34 AM EST) Pathologist [facility] Ferritin 15 10 - 250 ng/mL [facility] Blood Venous blood specimen / Unknown 07/19/2024 10:34 AM EST 07/19/2024 11:10 AM EST Maggy Ramirezcesario [facility] BLOOD ORDERABLES Final Res ult Performing Organization Address [facility] Co ia Phone Number [facility] [address] [place] [phone] * (ABNORMAL) Lipid Panel, Standard (07/19/2024 10:34 AM EST) Pathologist [facility] Triglycerides 48 <150 mg/dL [facility] Comment:Desirable Triglyceri de: less than 150 mg/dLBorderline High Triglyceride 150-199 mg/dLHigh Triglyceride: 200-499 mg/dLVery High Triglyceride: greater than or equal to 5OO mg/dL Cholesterol 181 <200 mg/dL [facility] Comment:Desirable Cholestero l: less than 200 mg/dLBorderline High Cholesterol: 200-239 mg/dLHigh Cholesterol: greater than 239 mg/dL LDL Cholesterol Calculated 113(H) <100 mg/dL [facility] Comment:Desirable LDL: less than 100 mg/dLNear Optimal/Above Optimal LDL: 110- 129 mg/dLBorderline High LDL: 130-159 mg/dLHigh LDL: 160-189 mg/dLVery High LDL: greater than or equal to 190 mg/dL HDL Cholesterol 59 >40 mg/dL [facility] Comment:Desirable HDL: great er than 40 mg/dL Note: This HDL assay may give artificially low results in patients with liver disease. Blood Venous blood specimen / Unknown 07/19/2024 10:34 AM EST 07/19/2024 11:10 AM EST us Maggy Carrera [employer] LAB BLOOD ORDERABLES Final Res ult [facility] [address] [place] [phone] * (ABNORMAL) Comprehensive Metabolic Panel (07/19/2024 10:34 AM EST) Sodium 138 135 - 145 mmol/L [facility] Potassium 4.0 3.3 - 5.1 mmol/L [facility] Chloride 105 96 - 108 mmol/L [facility] Carbon Dioxide 26 22 - 29 mmol/L [facility] Anion Gap 11(L) 12 - 20 [facility] Urea Nitrogen (BUN) 8(L) 9 - 16 mg/dL [facility] Creatinine, Serum 0.69 0.5 - 1.4 mg/dL [facility] Estimated Glomerular Filt Rate >60 [facility] Comment:Chronic Kidney Disea se: Estimated GFR < 60 mL/min/[id number] Kidney Disease: Estimated GFR < 15 mL/min/1.73m2 Glucose 100 60 - 115 mg/dL [facility] Calcium 9.4 8.4 - 10.2 mg/dL [facility] Bilirubin, Total 0.4 0.0 - 1.0 mg/dL [facility] Aspartate Amino Transferase 33(H) 5 - 31 U/L [facility] Alanine Aminotransferase 34(H) 0 - 31 U/L [facility] Total Protein 8.0 6.5 - 8.0 g/dL [facility] Albumin Level 4.5 3.5 - 5.0 g/dL [facility] Alkaline Phosphatase 35(L) 39 - 117 U/L [facility] Blood Venous blood specimen / Unknown 07/19/2024 10:34 AM EST 07/19/2024 11:10 AM EST Maggy Carrera [facility] BLOOD ORDERABLES Final Res ult [facility] [address] [place] [address] [phone] * HPV mRNA E6/E7 w/Reflex to HPV Genotypes 16, 18/45 (08/09/2023 1:26 PM EDT) HPV nRNA E6/E7 Not Detected Not Detected [facility] Comment:Methodology: Transcr iption-Mediated AmplificationThis assay detects E6/E7 viral messenger RNA (mRNA) from 14high-risk HPV types (16,18,31,33,35,39,45,51,52,56,58,59,66,68).Cervical sources are required for HPV testing.If a vaginal source from a patient who has had atotal hysterectomy with removal of cervix wassubmitted, please contact the testing laboratoryfor alternative testing options.For additional information, please refer tohttp://education.[employer]/faq/JVD473z0(This link if provided for information/educational purposes only.)THIS TEST WAS PERFORMED AT:[facility] [place] [phone] PLATT MD HPV mRNA E6/E7 [facility] HPV 16 RNA GAP [facility] HPV 18/45 RNA [facility] 08/09/2023 1:26 PM EDT 08/10/2023 9:15 AM EDT Pj Esteban CNM LAB CYTOLOGY ORDERABLES F inal Result [facility] [address] [place] [phone] * Pap Smear (08/09/2023 1:26 PM EDT) Swab Vaginal structure / Unknown 08/09/2023 1:26 PM EDT 08/10/2023 9:15 AM EDT Narrative [facility] - 08/17/2023 9:32 AM EDT ----- ------- Name: Kae Jo ?Age/Sex: 38/F ? : 1985 Unit#: [id number] ?? Attend Dr: PJ ESTEBAN CNM ?Re08/09/23 ?Status: DEP REF ? Location: [facility] ? Disch: ? ----- ------- SPEC : [id number] ? RECD: 08/10/23 ? STATUS: ??SOUT ? REQ NUM: [id number] ? SAY: 08/09/23-1326 ? SUBM DR: PJ [...] 66, 68) ?? HPV testing performed by [facility], [place], [place]. ??See reference laboratory ?? portion of the EMR for entire report. ?Clinical Information LMP: Unknown date Previous PAP test: Unknown date/findings ? Material Received ?? ThinPrep-Vaginal/Cervical ----- ------- Signed (signature on file) KEVIN Wright ([facility]) 08/17/23 0932 ? ----- ------- ? END OF REPORT ? Pj Esteban [facility] CYTOLOGY ORDERABLES F inal Result [facility] [address] [place] [address] [phone] from Last 3 Months or Most Recently Relevant to Health Maintenance Insurance [facility] , [address] [place] [address] Care Teams Marble Carver Relationship Specialty Start Date End Date Maggy Carrera FNP [address] [place] [address] PCP - General Family Medicine 03/24/21
--- OUTSIDE RECORDS SUMMARY | 2024-09-25 17:06 | XMS_ITS | Encounter Summary ---
Author Organization [employer] Address [address] [place] [address] Care Team Providers Care Sterile Process Tech Name Role Phone Maggy Carrera PATRICIA Primary Care Provider [phone] Reason for Visit * Reason Comments Med Refill Encounter Details Date Type Department Care Team ([facility] st Contact Info) Description 03/31/2024 Refill [facility] MEDICINE [address] [place], [place] [phone] Yahir Butler MD 230 [place] [address] Opioid use disorder Social History Tobacco Use [...] Description 10/04/2024 11:15 AM EDT Office Visit [facility] MEDICINE [address] [place] [phone] Maggy Carrera FNP [address] [place] [address] 11/17/2024 10:30 AM EDT Clinical Support [facility] MEDICINE [address] [place] [address] Joana Ocampo, VALERIA 11/27/2024 1:45 PM EDT Office Visit [facility] OPTOMETRY [address] [place] [address] Adina García, OD [address] [place] [address] documented as of this encounter Visit Diagnoses Diagnosis Opioid use disorder documented in this encounter Additional Health Concerns Assessment Noted Time PHQ-9 Depression Total Score: 17 023 3:28 PM EDT documented as of this encounter Care Teams Sterile Process Tech Relationship Specialty Start Date End Date Maggy Carrera FNP [address] [place] [address] PCP - General Family Medicine 03/24/21 documented as of this encounter
--- OUTSIDE RECORDS SUMMARY | 2024-09-25 17:06 | XMS_ITS | Encounter Summary ---
Author Organization [employer] Address [address] 7[address] [place] [address] Care Team Providers Care Sexual Assault Counsellor Name Role Phone Maggy Carrera PATRICIA Primary Care Provider [phone] Reason for Visit * Reason Comments Med Refill Encounter Details Date Type Department Care Team ([facility] st Contact Info) Description 05/26/2024 Refill [facility] MEDICINE [address] [place], [place] [phone] Yahir Butler MD [address] [place] [address] Opioid use disorder Social History Tobacco Use [...] Description 10/04/2024 11:15 AM EDT Office Visit [facility] MEDICINE [address] [place] [address] Maggy Carrera FNP 505 [place] [address] 11/17/2024 10:30 AM EDT Clinical Support [facility] MEDICINE [address] [place] [address] Joana Ocampo, VALERIA 11/27/2024 1:45 PM EDT Office Visit [facility] OPTOMETRY [address] [place] [address] Adina García, OD [address] [place] [address] documented as of this encounter Visit Diagnoses Diagnosis Opioid use disorder documented in this encounter Additional Health Concerns Assessment Noted Time PHQ-9 Depression Total Score: 17 023 3:28 PM EDT documented as of this encounter Care Teams Sexual Assault Counsellor Relationship Specialty Start Date End Date Maggy Carrera FNP [address] [place] [address] PCP - General Family Medicine 03/24/21 documented as of this encounter
--- OUTSIDE RECORDS SUMMARY | 2024-09-25 17:06 | XMS_ITS | Encounter Summary ---
Author Organization [employer] Address [address] [place] [address] Care Team Providers Care Unit Assistant Name Role Phone Maggy Carrera PATRICIA Primary Care Provider [phone] Reason for Visit * Reason Onset Date Comments Appointment Request 10/09/2022 Encounter Details Date Type Department Care Team ([facility] st Contact Info) Description 10/09/2022 Telephone [facility] MEDICINE [address] [place] [address] Kamilah Pedersen, VALERIA Appointment Request Social History [...] a follow up appt with PCP per [facility] nurse , business writer attempted toschedule however zero availability. Please contact at [phone] documented in this encounter Plan of Treatment Upcoming Encounters Date Type Department Care Team (Late st Contact Info) Description 10/04/2024 11:15 AM EDT Office Visit [facility] MEDICINE [address] [place] [address] Maggy Carrera FNP [address] [place] [address] 11/17/2024 10:30 AM EDT Clinical Support [facility] MEDICINE [address] [place] [address] Joana Ocampo, VALERIA 11/27/2024 1:45 PM EDT Office Visit [facility] OPTOMETRY [address] [place] [address] Adina García, OD [address] [place] [address] documented as of this encounter Visit Diagnoses Not on filedocumented in this encounter Additional Health Concerns Assessment Noted Time PHQ-9 Depression Total Score: 21 023 3:34 PM EDT documented as of this encounter Care Teams Unit Assistant Relationship Specialty Start Date End Date Maggy Carrera FNP [address] [place] [address] PCP - General Family Medicine 03/24/21 documented as of this encounter
--- OUTSIDE RECORDS SUMMARY | 2024-09-25 17:06 | XMS_ITS | Encounter Summary ---
Author Organization [employer] Address [address] [place] [address] Care Team Providers Care Cad Drafter Name Role Phone Maggy Carrera PATRICIA Primary Care Provider [phone] Reason for Visit * Reason Comments Med Refill Encounter Details Date Type Department Care Team ([facility] st Contact Info) Description 02/25/2024 Refill [facility] MEDICINE [address] [place], [place] [phone] Yahir Butler MD [address] [place] [address] Vaping nicotine dependence, non-tobacco product Social History [...] Description 10/04/2024 11:15 AM EDT Office Visit [facility] MEDICINE [address] [place] [address] Maggy Carrera FNP 505 [place] [address] 11/17/2024 10:30 AM EDT Clinical Support [facility] MEDICINE [address] [place] [address] Joana Ocampo, VALERIA 11/27/2024 1:45 PM EDT Office Visit [facility] OPTOMETRY [address] [place] [address] TarkaAdina, OD [address] [place] [address] documented as of this encounter Visit Diagnoses Diagnosis Vaping nicotine dependence, non-tobacco product documented in this encounter Additional Health Concerns Assessment Noted Time PHQ-9 Depression Total Score: 17 023 3:28 PM EDT documented as of this encounter Care Teams Cad Drafter Relationship Specialty Start Date End Date Maggy Carrera FNP [address] [place] [address] PCP - General Family Medicine 03/24/21 documented as of this encounter
--- OUTSIDE RECORDS SUMMARY | 2024-09-25 17:06 | XMS_ITS | Encounter Summary ---
Author Organization [employer] Address [address] [place] [address] Care Team Providers Care Cannon Fire Direction Specialist Name Role Phone Maggy Carrera Primary Care Provider [phone] Reason for Visit * Reason Onset Date Comments Referral 05/29/2024 Encounter Details Date Type Department Care Team ([facility] st Contact Info) Description 05/29/2024 Telephone [facility]ICINE [address] [place] [address] Maggy Carrera FNP [address] [place] [address] Referral Social History Tobacco Use Types Packs/Day [...] TC from pt requesting new referral: Address: [address] [place] [address] [address], [place] [address] Facility Name: [facility] Type of Specialist: Compensation Supervisor DX: Ingrown Toenail Provider: Min Simon Pt stated due to insurance change she would need new emergency referral. Emergency because of the ingrown toenail. Please contact pt at at [phone], she would like to further discuss. documented in this encounter Plan of Treatment Upcoming Encounters Date Type Department Care Team (Late st Contact Info) Description 10/04/2024 11:15 AM EDT Office Visit [facility] MEDICINE [address] [place] [address] Maggy Carrera FNP [address] [place] [address] 11/17/2024 10:30 AM EDT Clinical Support [facility] [address] [place] [address] Joana Ocampo, VALERIA 11/27/2024 1:45 PM EDT Office Visit [facility] OPTOMETRY [address] [place] [address] Adina García OD [address] [place] [address] documented as of this encounter Visit Diagnoses Not on filedocumented in this encounter Additional Health Concerns Assessment Noted Time PHQ-9 Depression Total Score: 17 023 3:28 PM EDT documented as of this encounter Care Teams Cannon Fire Direction Specialist Relationship Specialty Start Date End Date Maggy Carrera FNP [address] [place] [address] PCP - General Family Medicine 03/24/21 documented as of this encounter
--- OUTSIDE RECORDS SUMMARY | 2024-09-25 17:06 | XMS_ITS | Encounter Summary ---
Author Organization [employer] Address [address] [place] [address] Care Team Providers Care Comptometer Operator Name Role Phone Maggy Carrera PATRICIA Primary Care Provider [phone] Reason for Visit * Reason Comments Med Refill Encounter Details Date Type Department Care Team ([facility] st Contact Info) Description 06/25/2023 Refill [facility] MEDICINE [address] [place], [place] [phone] Yahir Butler MD [address] [place], [place] [phone] Opioid use disorder Social History Tobacco Use Types Packs/Day Years Used Date Smoking Tobacco: Never Smokeless Tobacco: Never Alcohol Use Standard Drinks/Week Comments Never 0 (1 standard drink = 0.6 oz pur e alcohol) Depression Answer Date Recorded Patient Health Questionnaire-9 Score 17 10/22/2022 Housing Stability Answer Date Recorded What is your housing situation today? I have djeah roy 04/16/[address] you [...] Description 10/04/2024 11:15 AM EDT Office Visit [facility] MEDICINE [address] [place] [address] Maggy Carrera FNP 505 [place] [address] 11/17/2024 10:30 AM EDT Clinical Support [facility] MEDICINE [address] [place] [address] Joana Ocampo, VALERIA 11/27/2024 1:45 PM EDT Office Visit [facility] OPTOMETRY [address] [place] [address] Adina García, OD [address] [place] [address] documented as of this encounter Visit Diagnoses Diagnosis Opioid use disorder documented in this encounter Additional Health Concerns Assessment Noted Time PHQ-9 Depression Total Score: 17 023 3:28 PM EDT documented as of this encounter Care Teams Comptometer Operator Relationship Specialty Start Date End Date Maggy Carrera FNP 230 [place] [address] PCP - General Family Medicine 03/24/21 documented as of this encounter
--- OUTSIDE RECORDS SUMMARY | 2024-09-25 17:07 | XMS_ITS | Clinical Summary ---
Author Organization [address] [facility] Address [address] [place] [address] Phone Care Team Providers Care Grading Machine Feeder Name Role Phone Physician, Pcp Unknown Primary [...] 5 season) 2024 08/01/2020, 07/11/2020 Influenza Vaccine (Season Ended) 2025 HIB Vaccines Aged Out No longer eligi [...] age to complete this topic Meningococcal B Vaccine Aged Out No l onger eligible based on patient's age to complete [...] patient's age to complete this topic Insurance [facility] Care Teams Grading Machine Feeder Relationship Specialty Start Date End Date Physician, Pcp Unknown PCP - General 08/04/24
--- OUTSIDE RECORDS SUMMARY | 2024-09-25 17:07 | XMS_ITS | Encounter Summary ---
Author Organization [employer] Address [address] [place] [address] Care Team Providers Care Canary Breeder Name Role Phone Maggy Carrera PATRICIA Primary Care Provider [phone] Reason for Visit * Reason Comments Med Change Request Encounter Details Date Type Department Care Team ([facility] Contact Info) Description 09/19/2024 Refill [facility] MEDICINE [address] [place], [place] [phone] Yahir Butler MD 230 [place] [address] Opioid use disorder Social History Tobacco Use [...] encounter Miscellaneous Notes * Telephone Encounter - Yahir Butler MD - 09/20/2024 3:38 PM EDT Duplicate. documented in this encounter Plan of Treatment Upcoming Encounters Date Type Department Care Team (Late st Contact Info) Description 10/04/2024 11:15 AM EDT Office Visit [facility] MEDICINE [address] [place] [address] Maggy Carrera, ECONOMICS FACULTY MEMBER 505 [place] [address] 11/17/2024 10:30 AM EDT Clinical Support [facility] MEDICINE [address] [place] [address] Joana Ocampo RN 11/27/2024 1:45 PM EDT Office Visit [facility] OPTOMETRY [address] [place] [address] Adina García, OD [address] [place] [address] documented as of this encounter Goals Goal Patient Goal Type Associated Problems Recent Progress Patient-Stated? Author Decrease the frequency of unwanted emotions so that daily functioning is improved General No Joana Ocampo, RN documented as of this encounter Visit Diagnoses Diagnosis Opioid use disorder documented in this encounter Additional Health Concerns Assessment Noted Time PHQ-9 Depression Total Score: 2 07/20/19 25 9:16 PM EST documented as of this encounter Care Teams Canary Breeder Relationship Specialty Start Date End Date Maggy Carrera FNP [address] [place] [address] PCP - General Family Medicine 03/24/21 documented as of this encounter
--- OUTSIDE RECORDS SUMMARY | 2024-09-25 17:07 | XMS_ITS | Encounter Summary ---
Author Organization [employer] Address [address] [place] [address] Care Team Providers Care Production Graphic Designer Name Role Phone Maggy Carrera PATRICIA Primary Care Provider [phone] Reason for Visit * Reason Comments Med Refill Encounter Details Date Type Department Care Team ([facility] st Contact Info) Description 10/15/2023 Refill [facility] [address] [place], [place] [phone] Yahir Butler MD [address] [place] [address] Opioid use disorder Social History Tobacco Use [...] Description 10/04/2024 11:15 AM EDT Office Visit [facility] [address] [place] [address] Maggy Carrera FNP 505 [place] [address] 11/17/2024 10:30 AM EDT Clinical Support [facility] [address] [place] [address] Joana Ocampo, VALERIA 11/27/2024 1:45 PM EDT Office Visit [facility] OPTOMETRY [address] [place] [address] Adina García, OD [address] [place] [address] documented as of this encounter Visit Diagnoses Diagnosis Opioid use disorder documented in this encounter Additional Health Concerns Assessment Noted Time PHQ-9 Depression Total Score: 17 023 3:28 PM EDT documented as of this encounter Care Teams Production Graphic Designer Relationship Specialty Start Date End Date Maggy Carrera FNP [address] [place] [address] PCP - General Family Medicine 03/24/21 documented as of this encounter
--- OUTSIDE RECORDS SUMMARY | 2024-09-25 17:07 | XMS_ITS | Encounter Summary ---
Author Organization [employer] Address [address] [place] [address] Care Team Providers Care Organ Tuner Name Role Phone Maggy Carrera PATRICIA Primary Care Provider [phone] Reason for Visit * Reason Comments Med Refill Encounter Details Date Type Department Care Team ([facility] st Contact Info) Description 08/28/2024 Refill [facility] [address] [place], [place] [phone] Oksana Quiñones CNM [address] [place] [address] Social History Tobacco Use Types Packs/Day Years [...] Description 10/04/2024 11:15 AM EDT Office Visit [facility] [address] [place] [address] Maggy Carrera FNP 505 [place] [address] 11/17/2024 10:30 AM EDT Clinical Support [facility] [address] [place] [address] Joana Ocampo, VALERIA 11/27/2024 1:45 PM EDT Office Visit [facility] OPTOMETRY [address] [place] [address] Adina García, OD [address] [place] [address] documented as of this encounter Visit Diagnoses Not on filedocumented in this encounter Additional Health Concerns Assessment Noted Time PHQ-9 Depression Total Score: 2 07/20/19 9:16 PM EST documented as of this encounter Care Teams Organ Tuner Relationship Specialty Start Date End Date Maggy Carrera FNP [address] [place] [address] PCP - General Family Medicine 03/24/21 documented as of this encounter
--- OUTSIDE RECORDS SUMMARY | 2024-09-25 17:07 | XMS_ITS | Encounter Summary ---
Author Organization [employer] Address [address] [place] [address] Care Team Providers Care Craft Demonstrator Name Role Phone Maggy Carrera PATRICIA Primary Care Provider Reason for Visit * Reason Comments OBAT Encounter Details Date Type Department Care Team (Latest Contact Info) Description 09/22/2024 10:30 AM EDT Clinical Support [facility]INE [address] [place] [address] Joana Ocampo, VALERIA Opioid use disorder in [...] Progress Notes * Yahir Butler MD - 09/22/2024 10:45 AM EDT Kae is here today for Opioid Dependence RV. Patient on current Suboxone dose of 20/5 mg on a 8 week schedule. Induction date: 11/19/16. Declines referral to behavioral health. JOCELIN MUNOZ reviewed by provider. LFTs due. Last PCP appt 07/19/24 07/28/24 Utox BUP, THC Doing well. Now working [...] use disorder Congratulated on cessation. Periodically inquire. Today 09/22/24 F/U for opioid use disorder How is pt doing on Suboxone? I informed pt of harm reduction and COVID precautions/Flu Any substance use/alcohol? Any cravings or urges to use? Are they taking medication as prescribed? Any adverse effects? Want to talk to [facility] or it disaster recovery manager? Tobacco- Dental- Narcan- Fen test strips- Allergies- PrEP- Sexually active ? BC method? alcohol exposure VS past 6 months Appropriate hx Utox Support RC/BH/Groups Meds F/U Tobacco Narcan FEN Screening labs Objective Physical Exam Assessment/Plan Opioid use disorder in remission Tobacco use disorder Diagnoses and all orders for this visit: [...] except as provided at 2.12??(5) and 2.65. * Joana Ocampo RN - 09/22/2024 10:30 AM EDT Kae is here today for Opioid Dependence RV. Patient on current Suboxone dose of 20/5 mg on a 8 week schedule. Induction date: 11/19/16. Declines referral to behavioral health. JOCELIN MUNOZ reviewed by provider. LFTs due. Last PCP appt 07/19/24 07/28/24 Utox BUP, THC Doing well. 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 Likes it. Pay raise. Less busy able to sleep some. Excited that she bought a new car, 2023 [employer]. No cigarettes after extra month of Chantix. [...] use disorder Congratulated on cessation. Periodically inquire. Today 09/22/24 UTOX THC, BUP F/U for opioid use disorder Kae said that her suboxone is working well. She denies cravings. Denies any problems with with constipation at this time. 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 She said that she is keeping up to date with all her medical appointments and that her pcp recently made several referrals for her. She does not currently go to therapy, but states thatshe is experiencing good mental health at this time. Will continue dose and her 8 week schedule. This information has been disclosed to you [...] Description 10/04/2024 11:15 AM EDT Office Visit [facility]INE [address] [place] [address] Maggy Carrera, REPORT DEVELOPER [address] [place] [address] 11/17/2024 10:30 AM EDT Clinical Support [facility] [address] [place] [address] Joana Ocampo RN 11/27/2024 1:45 PM EDT Office Visit [facility] OPTOMETRY [address] [place] [address] TarkaAdina, OD [address] [place] [address] documented as of this encounter Goals Goal Patient Goal Type Associated Problems Recent Progress Patient-Stated? Author Decrease the frequency of unwanted emotions so that daily functioning is improved General No Joana Ocampo RN documented as of this encounter Procedures Procedure Name Priority Date/Time Associated Diagnosis Comments POCT KONRAD-14 URINE DRUG SCREEN Routine 09/22/2024 9:43 AM EDT Opioid use disorder in remission documented in this encounter Results * POCT KONRAD-14 Urine Drug Screen (09/22/2024 9:43 AM EDT) THC Positive Cocaine Screen, Urine Negative Opiate [...] documented as of this encounter Care Teams Craft Demonstrator Relationship Specialty Start Date End Date Maggy Carrera FNP [address] [place] [phone] PCP - General Family Medicine 03/24/21 documented as of this encounter
--- OUTSIDE RECORDS SUMMARY | 2024-09-25 17:07 | XMS_ITS | Encounter Summary ---
Author Organization [employer] Address [address] [facility] [address] [place] [address] Care Team Providers Care Grinder Carbon Plant Name Role Phone Maggy Carrera Primary Care Provider [phone] Reason for Visit * Reason Comments Med Refill Encounter Details Date Type Department Care Team (Late st Contact Info) Description 03/05/2023 Refill [facility] [address] [place], [place] [phone] Yahir Butler MD [address] [place], [place] [phone] Opioid use disorder Social History Tobacco Use [...] Description 10/04/2024 11:15 AM EDT Office Visit [facility] MED[facility]INE [address] [place] [address] Maggy Carrera FNP [address] [place] [phone] 11/17/2024 10:30 AM EDT Clinical Support [facility] MEDICINE [address] [place] [address] Joana Ocampo, VALERIA 11/27/2024 1:45 PM EDT Office Visit [facility] OPTOMETRY [address] [place] [address] Adina García, OD [address] [place] [address] documented as of this encounter Visit Diagnoses Diagnosis Opioid use disorder documented in this encounter Additional Health Concerns Assessment Noted Time PHQ-9 Depression Total Score: 17 023 3:28 PM EDT documented as of this encounter Care Teams Grinder Carbon Plant Relationship Specialty Start Date End Date Maggy Carrera FNP [address] [place] [address] PCP - General Family Medicine 03/24/21 documented as of this encounter
--- OUTSIDE RECORDS SUMMARY | 2024-09-25 17:07 | XMS_ITS | Encounter Summary ---
Author Organization [employer] Address [address] [place] [address] Care Team Providers Care Boat Deckhand Name Role Phone Maggy Carrera PATRICIA Primary Care Provider [phone] Encounter Details Date Type Department Care Team (Latest Contact Info) Description 09/22/2024 Travel Social History Tobacco Use Types Packs/Day [...] Description 10/04/2024 11:15 AM EDT Office Visit [facility] MED[facility] [address] [place] [address] Maggy Carrera FNP [address] [place] [address] 11/17/2024 10:30 AM EDT Clinical Support [facility] MED[facility]INE [address] [place] [address] Joana Ocampo, RN 11/27/2024 1:45 PM EDT Office Visit [facility] OPTOMETRY [address] [place] [address] TarAdina luo, OD [address] [place] [address] documented as of this encounter Goals Goal [...] documented as of this encounter Care Teams Boat Deckhand Relationship Specialty Start Date End Date Maggy Carrera FNP [address] [place] [address] PCP - General Family Medicine 03/24/21 documented as of this encounter
--- OUTSIDE RECORDS SUMMARY | 2024-09-25 17:07 | XMS_ITS | Encounter Summary ---
Author Organization [employer] Address [address] [place] [address] Care Team Providers Care Head Swamper Name Role Phone Maggy Carrera PATRICIA Primary Care Provider [phone] Encounter Details Date Type Department Care Team (Late st Contact Info) Description 10/07/2023 Orders Only [facility] MED[facility]INE [address] [place] [address] Isidra Pisano RN Opioid type dependence, continuous [...] Description 10/04/2024 11:15 AM EDT Office Visit [facility] MEDICINE [address] [place] [address] Maggy Carrera FNP [address] [place] [address] 11/17/2024 10:30 AM EDT Clinical Support [facility] MEDICINE [address] [place] [address] Joana Ocampo RN 11/27/2024 1:45 PM EDT Office Visit [facility] OPTOMETRY [address] [place] [address] TarAdina luo, OD [address] [place] [address] Scheduled Orders Name Type Priority Associated Diagnoses [...] documented as of this encounter Care Teams Head Swamper Relationship Specialty Start Date End Date Maggy Carrera FNP [address] [place] [address] PCP - General Family Medicine 03/24/21 documented as of this encounter
--- OUTSIDE RECORDS SUMMARY | 2024-09-25 17:07 | XMS_ITS | Encounter Summary ---
Author Organization [employer] Address [address] [place] [address] Care Team Providers Care Chiropractic Doctor Name Role Phone Maggy Carrera PATRICIA Primary Care Provider [phone] Reason for Visit * Reason Comments Med Refill Encounter Details Date Type Department Care Team ([facility] st Contact Info) Description 04/30/2023 Refill [facility] [address] [place], [place] [phone] Yahir Butler MD [address] [place] [address] Opioid use disorder Social History Tobacco Use [...] EDT Office Visit [facility] [address] [place] [address] Maggy Carrera FNP [address] [place] [address] 11/17/2024 10:30 AM EDT Clinical Support [facility] [address] [place] [address] Joana Ocampo, VALERIA 11/27/2024 1:45 PM EDT Office Visit [facility] OPTOMETRY [address] [place] [address] Adina García, OD [address] [place] [address] documented as of this encounter Visit Diagnoses Diagnosis Opioid use disorder documented in this encounter Additional Health Concerns Assessment Noted Time PHQ-9 Depression Total Score: 17 023 3:28 PM EDT documented as of this encounter Care Teams Chiropractic Doctor Relationship Specialty Start Date End Date Maggy Carrera FNP [address] [place] [address] PCP - General Family Medicine 03/24/21 documented as of this encounter
== END 2024-09-25 14:20 | disposition home or self-care (01) ==
LOC: HO.MAMMO 14:19
PROVIDERS: Visit Provider Registered Nurse
DX: Z12.31 Encounter for screening mammogram for malignant neoplasm of breast (principal)
CPT/HCPCS: 77063; 77067